=== PATIENT | female | born 2000 | race Caucasian/White ===

== ENCOUNTER 2023-04-04 20:27 | Outpatient (REF) | payer BC, SELFPAY ==
[2023-04-10 13:08] LABS: Age Gdln ACOG Testing Note (.); IGP, rfx Aptima HPV ASCU Note (.)
== END 2023-04-04 20:28 | disposition home or self-care (01) ==
LOC: LAB 20:27
PROVIDERS: PCP Family Medicine; Visit Provider Physician Assistant
DX: Z01.419 Encounter for gynecological examination (general) (routine) without abnormal findings (principal)
CPT/HCPCS: G0145

== ENCOUNTER 2023-10-02 03:59 | Emergency (ER) | payer BC, SELFPAY ==
[2023-10-02 04:03] VITALS: BP 114/75; PULSE 82; RESP 16; TEMP 36.9; O2SAT 99; BMI 23.5
--- NOTE | 2023-10-02 04:24 | ED.NAVMDI1 ---
HPI - Nausea/Vomiting/Diarrhea General Chief complaint: Nausea/Vomiting/Diarrhea Stated complaint: VOMITING Time Seen by Provider: 10/02/23 04:12 Source: patient Mode of arrival: walk-in Limitations: no limitations History of Present Illness HPI Narrative: 23-year-old female presents for nausea vomiting and diarrhea of 12 hours duration. No fever or hematemesis. She has not been around any ill people that she is aware of. No complaints of abdominal pain or blood in her stool. Related Data Home Medications ?Medication ?Instructions ?Recorded ?Confirmed albuterol sulfate 90 mcg/actuation inhalation 10/02/23 aerosol inhaler (Ventolin HFA) Previous Rx's ?Medication ?Instructions ?Recorded ondansetron 4 mg disintegrating 4 mg PO Q6H PRN nausea and 10/02/23 tablet vomiting #20 tabs Allergies Allergy/AdvReac Type Severity Reaction Status Date / Time No Known Drug Allergies Allergy Verified 10/02/23 04:10 Review of Systems ROS Narrative A ten point review of systems is negative except as noted above. Exam Narrative Exam Narrative: Nurses note and vital signs reviewed and patient is not hypoxic. General: The patient appears well and in no apparent distress. Patient is resting comfortably on cart. Skin: Warm, dry, no pallor noted. There is no rash noted. Head: Normocephalic, atraumatic Eye: Normal conjunctiva, no drainage Ears, Nose, Mouth, and Throat: oral mucosa is moist. Nares patent. Cardiovascular: Regular Rate and Rhythm Respiratory: Patient is in no distress, no accessory muscle use, lungs are clear to auscultation, no wheezing, rales or rhonchi Back: non-tender GI: No distention rebound guarding or tenderness Musculoskeletal: The patient has no evidence of calf tenderness, no pitting edema, symmetrical pulses noted bilaterally Neurological: A&O, normal speech Psychiatric: Cooperative Constitutional Vital Signs, click to edit/add: Last Vital Signs Temp 98.4 F 10/02/23 04:03 Pulse 82 10/02/23 04:03 Resp 16 10/02/23 04:03 BP 114/75 10/02/23 04:03 Pulse Ox 99 10/02/23 04:03 O2 Del Method Room Air 10/02/23 04:03 Course Vital Signs Vital signs: Vital Signs Temperature 98.4 F 10/02/23 04:03 Pulse Rate 82 10/02/23 04:03 Respiratory Rate 16 10/02/23 04:03 Blood Pressure 114/75 10/02/23 04:03 Pulse Oximetry 99 10/02/23 04:03 Oxygen Delivery Method Room Air 10/02/23 04:03 Temperature 98.4 F 10/02/23 04:03 Pulse Rate 82 10/02/23 04:03 Respiratory Rate 16 10/02/23 04:03 Blood Pressure 114/75 10/02/23 04:03 Pulse Oximetry 99 10/02/23 04:03 Oxygen Delivery Method Room Air 10/02/23 04:03 MDM - Nausea/Vomiting/Diarrhea MDM Narrative Medical decision making narrative: Blood work is nonspecific. She was given IV fluids and Zofran and is able to be discharged home with a prescription for Zofran. Treatment diagnosis and follow-up were discussed with the patient. Differential Diagnosis Differential diagnosis: Likely food poisoning, gastroenteritis and dehydration Lab Data Attestation: I reviewed the patient's lab results. Labs: Lab Results 10/02/23 Range/Units 04:20 WBC 9.2 (4.0-11.0) 10^3/uL RBC 5.27 (4.20-5.40) 10^6/uL Hgb 13.2 (12.0-16.0) g/dL Hct 41.5 (36.0-48.0) % MCV 78.7 L (81.0-99.0) fL MCH 25.0 L (26.7-34.0) pg MCHC 31.8 (29.9-35.2) g/dL RDW 13.7 (11.0-15.0) % Plt Count 297 (150-450) 10^3/uL MPV 10.8 (9.5-13.5) fL Neut % (Auto) 71.7 (43.0-75.0) % Lymph % (Auto) 20.7 (20.5-60.0) % Hendry % (Auto) 5.8 (1.7-12.0) % Eos % (Auto) 1.2 (0.9-7.0) % Baso % (Auto) 0.4 (0.2-2.0) % Neut # (Auto) 6.6 H (1.4-6.5) 10^3/uL Lymph # (Auto) 1.9 (1.2-3.8) 10^3/uL Hendry # (Auto) 0.5 (0.3-0.8) 10^3/uL Eos # (Auto) 0.1 (0.0-0.7) 10^3/uL Baso # (Auto) 0.0 (0.0-0.1) 10^3/uL Abs Immat Gran (auto) 0.02 (0.00-0.03) 10^3/uL Imm/Tot Granulo (auto) 0.2 (0.0-0.5) % Sodium 137 (136-145) mmol/L Potassium 3.8 (3.5-5.1) mmol/L Chloride 103 (98-107) mmol/L Carbon Dioxide 24.8 (21.0-32.0) mmol/L Anion Gap 13.0 BUN 12.0 (7.0-18.0) mg/dL Creatinine 0.95 (0.55-1.02) mg/dL Est GFR ( Amer) >60 (>=60) Est GFR (Non-Af Amer) >60 (>=60) BUN/Creatinine Ratio 12.6 Glucose 89 (74-106) mg/dL Calcium 9.4 (8.5-10.1) mg/dL Serum HCG, Qual Negative (NEGATIVE) Discharge Plan Discharge Stand Alone Forms: Portal Instructions Chief Complaint: Nausea/Vomiting/Diarrhea Clinical Impression: Nausea and vomiting Patient Disposition: Home, Self-Care Time of Disposition Decision: 05:34 Condition: Good Mode of Transportation: Private Vehicle Prescriptions / Home Meds: New ondansetron 4 mg tablet,disintegrating 4 mg PO Q6H PRN (Reason: nausea and vomiting) Qty: 20 0RF No Action albuterol sulfate [Ventolin HFA] 90 mcg/actuation HFA aerosol inhaler INHALATION Print Language: Zimbabwean Instructions: Acute Nausea and Vomiting (ED) Referrals: Joaquín Bruce MD [Primary Care Provider] - 1 week
--- NOTE | 2023-10-02 04:29 | PC.NURSE ---
Pt c/o vomiting non stop for the past 12 hours, along with some diarrhea and abdominal pain. She has hx of celiac disease and GERD. 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 Denies possibility of
[2023-10-02 04:31] LABS: Basophils Percent Auto 0.4 % (0.2-2.0); Eosinophils Absolute Auto 0.1 10^3/uL (0.0-0.7); Eosinophils Percent Auto 1.2 % (0.9-7.0); Hematocrit 41.5 % (36.0-48.0); Hemoglobin 13.2 g/dL (12.0-16.0); Immature Granulocytes Abs Auto 0.02 10^3/uL (0.00-0.03); Immature Granulocytes Pct Auto 0.2 % (0.0-0.5); Lymphocytes Absolute Auto 1.9 10^3/uL (1.2-3.8); Lymphocytes Percent Auto 20.7 % (20.5-60.0); Mean Corpuscular HGB Conc 31.8 g/dL (29.9-35.2); Mean Corpuscular Volume 78.7 fL (81.0-99.0); Mean Platelet Volume 10.8 fL (9.5-13.5); Monocytes Absolute Auto 0.5 10^3/uL (0.3-0.8); Monocytes Percent Auto 5.8 % (1.7-12.0); Neutrophils Absolute Auto 6.6 10^3/uL (1.4-6.5); Neutrophils Percent Auto 71.7 % (43.0-75.0); Platelet Count 297 10^3/uL (150-450); Red Blood Count 5.27 10^6/uL (4.20-5.40); Red Cell Distribution Width 13.7 % (11.0-15.0); White Blood Count 9.2 10^3/uL (4.0-11.0)
[2023-10-02] MEDS: ONDANSETRON PF 4 MG/2 ML VIAL IV (04:34)
[2023-10-02] MEDS: 0.9 % SODIUM CHLORIDE 1,000 ML 1000 ML IV (04:34)
[2023-10-02 04:39] LABS: HCG Qualitative NEGATIVE (NEGATIVE)
[2023-10-02 04:40] LABS: BUN Creatinine Ratio 12.6; Calcium 9.4 mg/dL (8.5-10.1); Carbon Dioxide 24.8 mmol/L (21.0-32.0); Chloride 103 mmol/L (98-107); Estimated GFR (African America >60 (>=60); Estimated GFR (Non-African Ame >60 (>=60); Glucose 89 mg/dL (74-106); Potassium 3.8 mmol/L (3.5-5.1); Sodium 137 mmol/L (136-145)
== END 2023-10-02 05:50 | disposition home or self-care (01) ==
PROVIDERS: Emergency Provider Emergency Medicine; PCP Family Medicine
DX: R11.2 Nausea with vomiting, unspecified (principal); Z79.899 Other long term (current) drug therapy
CPT/HCPCS: 36415; 80048; 84703; 85025; 96361; 96374; 99284

== ENCOUNTER 2023-10-22 14:44 | Outpatient (OUT) | payer BC, SELFPAY ==
--- NOTE | 2023-10-22 14:49 | XR_ITS ---
The [address] [address] Patient Name: AMOS RIOS MRN: [id number] date: 2000 Sex: F Assigned Patient Location: [facility] Current Patient Location: Accession/Order Number: [id number] Exam Date: 10/22/2023 14:54 Report Date: 10/23/2023 08:48 At the request of: DAVIS BRANCH Procedure: XR foot RT min 3V PROCEDURE: XR foot RT min 3V COMPARISON: None. HISTORY: Right Foot Pain M79.671 FINDINGS: BONES:No fracture, acute abnormality, or significant arthropathy. SOFT TISSUES:Negative. No visible soft tissue swelling. EFFUSION:None visible. OTHER: Negative. XR/XR foot RT min 3V IMPRESSION: No acute radiographic abnormality Electronically authenticated by: CALLY CHO Date: 10/23/2023 08:48
== END 2023-10-22 14:45 | disposition home or self-care (01) ==
LOC: RAD 14:45
PROVIDERS: PCP Family Medicine; Visit Provider Family Medicine
DX: M79.671 Pain in right foot (principal)
CPT/HCPCS: 73630

== ENCOUNTER 2024-07-22 20:30 | Outpatient (REF) | payer BC, SELFPAY | END 2024-07-22 20:31 | disposition home or self-care (01) | LOC: LAB 20:30 | PROVIDERS: PCP Family Medicine; Visit Provider Physician Assistant | DX: Z01.419 Encounter for gynecological examination (general) (routine) without abnormal findings (principal) | CPT/HCPCS: 88175 ==

== ENCOUNTER 2025-04-13 16:54 | Outpatient (OUT) | payer BC, SELFPAY ==
--- OUTSIDE RECORDS SUMMARY | 2025-04-13 11:32 | XMS_ITS | Continuity of Care Document ---
Author Organization [facility] Address [address] [place] [address] Phone Care Team Providers Care Property Loss Insurance Claim Adjuster Name Role Phone Joaquín Bruce MD Primary Care Provider Joaquín Bruce MD Attending Provider [phone] Care Teams Patient Care Team Team Status: Active Member Role Status Dates Joaquín Bruce MD Primary Care Provider Active Patient Care Team Team Status: Inactive Member Role Status Dates Joaquín Bruce MD Primary Care Provider Active S tart: April 13, 2025 End: April 13, 2025 Joaquín Bruce MD Attending Provider Active Star t: April 13, 2025 End: April 13, 2025 Chief Complaint and Reason for Visit Chief Complaint Admit Date Check Up/Request Referral April 13, 025 2:44pm Reason for Visit Admit Date Annual physical exam April 13, 2025 2 :44pm Autonomic dysfunction April 13, 2025 2:44pm Celiac disease April 13, 2025 2: 44pm Allergies, Adverse Reactions, Alerts Allergen Type Severity Reaction Last Updated Verified Status Comments gluten Allergy Unknown Unknown Reaction April 09, 2025 11:52am Yes Active prednisone Allergy Unknown heart problem April 11:52am Yes Active Medi-pads Allergy Unknown Unknown Reaction April 09, 2025 11:52am No Active witch kalpesh, women's period pads Social History Smoking Status Status Start Date End Date Date of Observa tion Ex-smoker (finding) April 13, 2025 2:56pm Observation Status Observation Response Date of Response Legal Sex Female (finding) Sex Assigned At Female August 012000 Problems Active Problems Medical Problem Onset Date Status Generalized anxiety disorder Unknown Act lavinia Disorder of both eustachian tubes Unknown Active Autonomic dysfunction Unknown Active Mild intermittent asthma, uncomplicated Unknown Active Allergic rhinitis due to pollen Unknown Active Arthralgia of multiple joints Unknown Ac tive Annual physical exam Unknown Active Major depressive disorder, recurrent episode, mi ld Unknown Active Gastroesophageal reflux disease without esophagi tis Unknown Active Right foot pain Unknown Active Celiac disease Unknown Active Inactive/Resolved Problems Medical Problem Onset Date Status Viral gastroenteritis Unknown Resolved Abdominal cramping Unknown Resolved Generalized abdominal pain Unknown Resol dennis Epigastric pain Unknown Resolved Viral URI Unknown Resolved Hematochezia Unknown Resolved GERD (gastroesophageal reflux disease) Unknown Resolved Nausea Unknown Resolved Constipation Unknown Resolved Irritable bowel syndrome Unknown Resolve d Celiac disease Unknown Resolved Celiac sprue Unknown Resolved Medications Medication Status Dose Units Route Directions Qty Days St art Date Stop Date End Date Instructions Adherence Cefdinir 300 mg capsule Active 300 MG PO Twice daily [facility] 2024 12:00a m Complies with drug therapy Pantoprazol e 40 mg tablet,arpita yed release (DR/EC) Active 40 MG PO Daily [facility] 2024 12:00a m Complies with drug therapy Hydroxyzine Hcl 25 mg tablet Active 25 MG PO Four times daily as needed [facility] 2024 12:00a m Complies with drug therapy Albuterol Sulfate 90 mcg/actuati on HFA aerosol inhaler Active 2 PUFF INHALA TION Every 4 hours as needed [facility] 2024 12:00a m Complies with drug therapy Vital Signs Vital Reading Result Reference Range Collection Date/Time Height 67 [in_i] April 13 2:53pm Weight 80.73 kg April 13 2:53pm Body Temperature 97.8 [degF] 97.6-99.0 April 2:53pm Heart Rate 97 /min 60-100 April 13 2:53pm Respiratory rate 20 /min 12-April 2:53pm Oxygen saturation by Pulse oximetry 99 % 95-100 April 13, 2025 2: 53pm BP Systolic 104 mm[Hg] 100-140 April 13 2:53pm BP Diastolic 62 mm[Hg] 60-100 April 13 2:53pm BMI (Body Mass Index) 27.8 kg/m2 [facility] 2024 2:53pm Advance Directives Advance Directive Response Recorded Date/ Time Advance Directives No December 05 8 4:11pm Insurance Providers Guarantor Wilbert Hooper Address [address] [place] [id number] Contact Info. Home Phone: Payer Policy Id Subscriber's Name Subscriber Id Effectiv e Date Expiration Date MMO [id number] Wallace Som , P [id number] MMO [employer] Access [id number] Wallace Kearns , P [id number] [place] [id number] Kirti Som [id number] Medicaid [id number] Mary Kearns , M [id number] [place] Medicaid [id number] Mary Kearns M [id number] Encounters Encounter Location(s) Arrival/Admit Date Discharge/Depart Date Provider(s) Departed Physician/Prov ider Office Visit -[facility] Family Medicine [place] April 13, 2025 2:44pm April 13, 2025 3:32pm Joaquín Bruce MD Recent Diagnosis Onset Date Admit Date Annual physical exam Unknown April 2:44pm Autonomic dysfunction Unknown April 2:44pm Celiac disease Unknown April 13 2:44pm Assessments Diagnosis Onset Date Resolution Status Admit Date Annual physical exam acute Apro 2024 2:44pm Autonomic dysfunction acute Apr oli2024 2:44pm Celiac disease acute April 2:44pm Plan of Treatment Future Tests Future scheduled test information is unavailable Pending Tests Test Name Ordered Date Scheduled Date Comprehensive Metabolic Panel April 13, 2025 3:22pm Future Visits Future appointment information is unavailable Referrals to Other Providers Referral information is unavailable Future Procedures Procedure Name Ordered Date Scheduled Date A1C with Estimated Average Glu April 13, 2025 3:22pm Complete Blood Count Auto Diff April 13, 2025 3:22pm Iron and TIBC Profile April 13, 2025 3:22pm Ferritin April 13, 2025 3:22pm Lipid Panel April 13, 2025 3:22pm Thyroid Stimulating Hormone April 13, 2025 3: 22pm Future Medications Future medication information is unavailable Patient Instructions Patient instructions are unavailable
--- OUTSIDE RECORDS SUMMARY | 2025-04-13 17:01 | XMS_ITS | Encounter Summary ---
Author Organization [facility] Address [address] [place] [address] Care Team Providers Care Financial Compliance Manager Name Role Phone Joaquín Branch MD Primary Care Provider [phone] Encounter Details Date Type Department Care Team (Late st Contact Info) Description 10/23/2023 Clinisync Result Encounter [facility] External Department Unsolicited Joaquín Branch MD [address] [place] [address] Social History Tobacco Use Types Packs/Day Years Used Date Smoking Tobacco: Never Smokeless Tobacco: Never Comments Unknown Sex and Gender Information Value Date Recorded Sex Assigned at Not on file Legal Sex Female 7:21 PM EDT Gender Identity Not on file Sexual Orientation Not on file documented as of this encounter Plan of Treatment Upcoming Encounters Date Type Department Care Team (Late st Contact Info) Description 07/27/2025 11:00 AM EST Office Visit [facility] [address] [place] [id number] Marquis Bernal DO [address] [place], [place] [id number] documented as of this encounter Procedures Procedure Name Priority Date/Time Associated Diagnosis Comments XR FOOT RT MIN 3V 10/23/2023 8:4 8 AM EDT documented in this encounter Results * XR FOOT RT MIN 3V (10/23/2023 8:48 AM EDT) Anatomical Region Laterality Modality Other 10/23/2023 8:48 AM EDT Narrative 10/23/2023 8:51 AM EDT The [address] [address] XRay Report Signed Patient: MARY KEARNS MR#: [id number] : 2000 Acct:[id number] Age/Sex: 23 / F ADM Date: 10/22/23 Loc: RAD Attending Dr: Joaquín Branch M.D. Ordering Physician: Joaquín Branch M.D. Date of Service: 10/22/23 Procedure(s): XR foot RT min 3V Accession Number(s): [id number] cc: Joaquín Branch M.D. [place] [address] Patient Name: MARY KEARNS MRN: [id number] date: 2000 Sex: F Assigned Patient Location: [facility] Current Patient Location: Accession/Order Number: [id number] Exam Date: 10/22/2023 14:54 Report Date: 10/23/2023 08:48 At the request of: JOAQUÍN BRANCH Procedure: XR foot RT min 3V PROCEDURE: XR foot RT min 3V COMPARISON: None. HISTORY: Right Foot Pain M79.671 FINDINGS: BONES:No fracture, acute abnormality, or significant arthropathy. SOFT TISSUES:Negative. No visible soft tissue swelling. EFFUSION:None visible. OTHER: Negative. XR/XR foot RT min 3V IMPRESSION: No acute radiographic abnormality Electronically authenticated by: CALLY CHO Date: 10/23/2023 08:48 Dictated By: Cally Cho M.D. Signed By: 10/23/23 0851 DD/ TD/TT: Community Health Worker: Procedure Note Radiology, Radiologist, - 10/25/[address] [address] XRay Report Signed Patient: MARY KEARNS MMR#: [id number] : 2000Acct:[id number] Age/Sex: 23 / FADM Date: 10/22/23 Loc: RAD Attending Dr: Joaquín Branch M.D. Ordering Physician: Joaquín Branch M.D. Date of Service: 10/22/23 Procedure(s): XR foot RT min 3V Accession Number(s): [id number] cc: Joaquín Branch M.D. [place] [address] Patient Name: MARY KEARNS MRN: [id number] date: 2000 Sex: F Assigned Patient Location: [facility] Current Patient Location: Accession/Order Number: [id number] Exam Date: 10/22/2023 14:54 Report Date: 10/23/2023 08:48 At the request of: JOAQUÍN BRANCH Procedure: XR foot RT min 3V PROCEDURE: XR foot RT min 3V COMPARISON: None. HISTORY: Right Foot Pain M79.671 FINDINGS: BONES:No fracture, acute abnormality, or significant arthropathy. SOFT TISSUES:Negative. No visible soft tissue swelling. EFFUSION:None visible. OTHER: Negative. XR/XR foot RT min 3V IMPRESSION: No acute radiographic abnormality Electronically authenticated by: CALLY CHO Date: 10/23/2023 08:48 Dictated By: Cally Cho M.D. Signed By:10/23/23 0851 DD/ TD/TT: Community Health Worker: Joaquín Branch MD [facility] Final Result documented in this encounter Visit Diagnoses Not on filedocumented in this encounter Care Teams Financial Compliance Manager Relationship Specialty Start Date End Date Joaquín Branch MD PCP - General Family Medicine 10/22/23 documented as of this encounter
--- OUTSIDE RECORDS SUMMARY | 2025-04-13 17:01 | XMS_ITS | Encounter Summary ---
Author Organization [facility] Address [address] [place] [address] Care Team Providers Care Upset Operator Name Role Phone Joaquín Bruce MD Primary Care Provider [phone] Encounter Details Date Type Department Care Team (Late st Contact Info) Description 08/04/2024 Orders Only VERONICA GALVAN [facility] [employer] [place] [place] [address] Kasey Beltre LPN [address] [place] [address] Social History Tobacco Use Types Packs/Day Years [...] 07/27/2025 11:00 AM EST Office Visit [facility] [employer] [place] [place] [address] Marquis Bernal DO [address] [place], [facility] documented as of this encounter Procedures Procedure Name Priority Date/Time Associated Diagnosis Comments PAP SMEAR Routine 07/22/2024 12:00 AM EST documented in this encounter Results * Pap Smear (07/22/2024 12:00 AM EST) Swab Cervical swab / Unknown us [facility] ORDERABLES Final Re sult EXTERNAL LAB documented in this encounter Visit Diagnoses Not on filedocumented in this encounter Care Teams Upset Operator Relationship Specialty Start Date End Date Joaquín Bruce MD PCP - General Family Medicine 10/22/23 documented as of this encounter
--- OUTSIDE RECORDS SUMMARY | 2025-04-13 17:01 | XMS_ITS | Clinical Summary ---
Author Organization [facility] Address [address] [place] [address] Care Team Providers Care Hull And De[employer] Remover Name Role Phone Joaquín Bruce MD Primary Care Provider [phone] Allergies Active Allergy Reactions Criticality Noted Date Comments Gluten Meal 02/20/2023 Witch Darlene 02/20/2023 Womans period pads Prednisone 02/20/2023 Heart problem Medications pantoprazole (Protonix) 40 MG EC tabletIndications :Gastroesophageal reflux disease without esophagitis Take 1 tablet (40 mg) by mouth in the morning. Take before meals. Do not crush, chew, or split.. 30 tablet 5 4 Active hydrOXYzine HCl (Atarax) 25 MG tabletIndications :Generalized anxiety disorder Take 1 tablet (25 mg) by mouth 4 (four) times a day as needed for anxiety 30 tablet 2 4 Active albuterol HFA 90 mcg/act inhalerIndication s:Mild intermittent asthma, unspecified whether complicated (HCC) Inhale 2 puffs every 4 (four) hours if needed for shortness of breath 18 g 2 5 Active predniSONE (Deltasone) 10 MG tabletIndications :Allergic contact dermatitis due to cosmetics 6 PO daily x 3 days, 4 PO daily x 3 days, 2 PO daily x 3 days, 1 PO daily x 3 days 39 tablet 5 Active Active Problems Problem Noted Date Diagnosed Date Allergic contact dermatitis due to cosmetics Assessment & Plan (08/25/2024 3:25 PM EST): Likely reacting to new shampoo. Treat with prednisone and use hydroxyzine PRN. Use lotion PRN. Arthralgia of multiple joints 10/22/2023 Celiac disease 10/22/2023 Disorder of both eustachian tubes 10/22/2023 Assessment & Plan (10/22/2023 12:24 PM EDT): Fluid behind TM and frequent symptoms. Resume flonase. Prior tubes and refer to ENT. Generalized anxiety disorder 10/22/2023 Gastroesophageal reflux disease without esophagi tis 10/22/2023 Assessment & Plan (10/22/2023 12:25 PM EDT): Worsening symptoms and resume protonix. Hematochezia 10/22/2023 Major depressive disorder, recurrent episode, mi ld 10/22/2023 Mild intermittent asthma, uncomplicated 10/22/19 Allergic rhinitis due to pollen 10/22/2023 Viral gastroenteritis 10/22/2023 Assessment & Plan (10/22/2023 12:26 PM EDT): Recent symptoms and likely viral. Increase fluids. Wash hands prior to eating and monitor. Right ear impacted cerumen 10/22/2023 Assessment & Plan (10/22/2023 12:25 PM EDT): Ear plugged and impaction on exam. Ear irrigated with water and cerumen removed with speculum. Canal clear after procedure. Use debrox or drops of baby oil to prevent build up of wax in future. Do not use q-tips inside ear. Right foot pain 10/22/2023 Assessment & Plan (10/22/2023 12:26 PM EDT): Pain without injury and possibly related to activity. Treat with prednisone. Ice and elevate. Check x-ray due to bump on outer mid foot. Resolved Problems Problem Noted Date Diagnosed Date Resolved Date Acute UTI 07/30/2024 08/25/2024 Assessment & Plan (07/30/2024 10:43 AM EST): UA suggestive UTI and treat. Currently on levaquin and start macrobid for infection. Use pyridium for symptoms. Send urine for culture. Increase water intake and cranberry juice. Use motrin or tylenol for discomfort. Acute bronchitis due to othe r specified organisms 07/27/2024 07/30/2024 Assessment & Plan (07/27/2024 2:23 PM EST): Take antibiotics for 7 days. Use sudafed or other decongestants as needed. Use robitussin or robittussin-DM for cough. Use afrin for congestion but no longer than 3 days. Use mucinex to bring up phlegm. Use motrin or tylenol for fever, aches or pains. Increase fluid intake and rest. Should improve over next 5-7 days and if no better or worse call office. Dermatitis 10/22/2023 10/22/2023 Encounters Date Type Department Care Team Description 01/12/2025 Telephone [facility] [address] [place] [address] Joaquín Bruce MD from Last 3 Months Social History Tobacco Use Types Packs/Day Years Used Date Smoking Tobacco: Never Smokeless Tobacco: Never Tobacco Cessation:Counseling Given: Not Answered Comments Unknown Sex and Gender Information Value Date Recorded Sex Assigned at Not on file Legal Sex Female 7:21 PM EDT Gender Identity Not on file Sexual Orientation Not on file Last Filed Vital Signs Vital Sign Reading Time Taken Comments Blood Pressure 108/56 08/25/2024 3:08 PM EST Pulse 91 08/25/2024 3:08 PM EST Temperature 36.6 C (97.8 F) 08/25/2024 3:08 PM EST Respiratory Rate 22 08/25/2024 3:08 PM EST Oxygen Saturation 99% 08/25/2024 3:08 PM EST Inhaled Oxygen Concentration - - Weight 82.1 kg (181 lb) 08/25/2024 3:08 PM EST Height 170.2 cm (5' 7 ) 08/25/2024 3:08 PM EST Body Mass Index 28.35 08/25/2024 3:08 PM EST Plan of Treatment Upcoming Encounters Date Type Department Care Team (Late st Contact Info) Description 07/27/2025 11:00 AM EST Office Visit [facility] [address] [place] [address] Marquis Bernal DO [address] [place] [address] Insurance Care Teams Hull And De[employer] Remover Relationship Specialty Start Date End Date Joaquín Bruce MD PCP - General Family Medicine 10/22/23
--- OUTSIDE RECORDS SUMMARY | 2025-04-13 17:01 | XMS_ITS | Clinical Summary ---
Author Organization [employer] [facility] Address [id number] [address] [place] [address] Care Team Providers Care [employer] Name Role Phone Joaquín Bruce MD Primary Care Provider [phone] Allergies No known active allergies Medications acetaminophen (TYLENOL EXTRA STRENGTH) 500 mg tablet Take 1 tablet (500 mg total) by mouth every 6 (six) hours as needed for pain. 30 tablet 3 Active Additional Information Patient not taking.Reported on 10/03/2023 ibuprofen (MOTRIN) 400 mg tablet Take 1 tablet (400 mg total) by mouth every 6 (six) hours as needed for pain. 30 tablet 3 Active Additional Information Patient not taking.Reported on 10/03/2023 loperamide (IMODIUM) 2 mg capsule Take 1 capsule (2 mg total) by mouth 4 (four) times a day as needed for diarrhea. 12 capsule 4 Active Additional Information Patient not taking.Reported on 07/14/2024 promethazine (PHENERGAN) 25 mg tablet Take 1 tablet (25 mg total) by mouth every 6 (six) hours as needed for nausea or vomiting. 15 tablet 4 Active Additional Information Patient not taking.Reported on 07/14/2024 Social History Tobacco Use Types Packs/Day Years Used Date Smoking Tobacco: Former Cigarettes Smokeless Tobacco: Never Tobacco Cessation:Counseling Given: Not Answered Alcohol Use Standard Drinks/Week Comments Not Currently 0 (1 standard drink = 0.6 oz pur e alcohol) Childcare Answer Date Recorded Childcare Unknown 04/06/2020 Employment Answer Date Recorded Employment Unknown 04/06/2020 Hunger Screening Answer Date Recorded Within the past 12 months we worried whether our food would run out before we got money to buy more. Never True 07/14/2024 Within the past 12 months th e food we bought just didn't last and we didn't have money to get more. Never True 07/14/2024 Purpose - Life Answer Date Recorded Purpose and direction in life Unknown Comments No Sex and Gender Information Value Date Recorded Sex Assigned at Not on file Legal Sex Female 12:01 PM EDT Gender Identity Not on file Sexual Orientation Not on file Last Filed Vital Signs Vital Sign Reading Time Taken Comments Blood Pressure 128/67 07/14/2024 6:45 PM EST Pulse 78 07/14/2024 6:44 PM EST Temperature 37 C (98.6 F) 07/14/2024 6:44 PM EST Respiratory Rate 18 07/14/2024 6:44 PM EST Oxygen Saturation 100% 07/14/2024 6:45 PM EST Inhaled Oxygen Concentration - - Weight 79.4 kg (175 lb) 07/14/2024 6:44 PM EST Height 170.2 cm (5' 7 ) 07/14/2024 6:44 PM EST Body Mass Index 27.41 07/14/2024 6:44 PM EST Plan of Treatment Health Maintenance Due Date Last Done Comments Depression Screening 2012 Adult BMI Follow Up Plan 2018 Influenza Vaccine 03/08/2025 DTaP,Tdap and Td Vaccines (6 - Td or Tdap) 03/21/2025 03/21/2015, 09/22/2001, 03/21/2001, Additional history exists Adult BMI Screening 07/14/2025 07/14/2024 Tobacco Screening 07/14/2025 07/14/2024 Pap Smear 04/04/2026 04/04/2023 Medical Devices Not on file Insurance [facility] Care Teams [employer] Relationship Specialty Start Date End Date Joaquín Bruce MD PCP - General Family Medicine 08/08/22
--- OUTSIDE RECORDS SUMMARY | 2025-04-13 17:04 | XMS_ITS | CCD ---
Author Organization [facility] Care Team Providers [facility] Name Role Phone Triny Guerra Unavailable DR JOAQUÍN BRANCH Admitting Unavailable JOSE CARLOS, DR JOAQUÍN Gilbert Attending Unavailable JOSE CARLOS, DR JOAQUÍN Gilbert Primary Care Unavailable JOSE CARLOS, DR JOAQUÍN Gilbert Consulting Unavailable MD Joaquín Branch Primary Care Provider ERVIN Guerra Attending Provider Triny Guerra Attending Unavailable Triny Guerra Admitting Unavailable Joaquín Branch Primary Care Unavailable Shira Lorraine Unavailable JOAQUÍN BRANCH Primary Care Unavailable CALLY REIS Attending Unavailable JOSE CARLOS, JOAQUÍN Primary Care Unavailable SANDY SOUZA Attending Unavailable Joaquín Branch MD Primary Care Provider JOAQUÍN BRANCH Attending Unavailable JOSE CARLOS, JOAQUÍN Attending Unavailable JOSE CARLOS, JOAQUÍN Attending Unavailable CHANDA BERNAL Attending Unavailable JOSE CARLOS, JOAQUÍN Attending Unavailable Allergies Allergy Classification Reported Allergen(s) Allergy Type Date of Onset Reaction(s) Facility (11 sources) Gluten Propensity to adverse reactions 3 [facility] Work Phone: (11 sources) Prednisone Propensity to adverse reactions 3 [facility] (11 sources) Witch Darlene Drug Allergy 3 [facility] Medications Current Medications Medication Drug Class(es) Dates Sig (Normalized) Sig (Original) [id number] 200 actuat albuterol 0.09 mg/actuat metered dose inhaler (15 sources) beta2-Adrenergic Agonist Start: 06-06-2023 End: 07-27-2024 take 2 puff(s) by inhalation every four hours albuterol HFA 90 mcg/act inhaler Indications: Mild intermittent asthma, unspecified whether complicated (CMS/HCC) Inhale 2 puffs every 4 (four) hours if needed for shortness of breath 18 g 2 07/27/2024 Active Start: 06-06-2023 take 1 puff(s) by in halation every four hours as needed Albuterol Sulfate HFA 108 (90 Base) MCG/ACT 1 puff as needed Inhalation every 4 hrs for 14 days May, Active Start: 06-06-2023 take 1 puff(s) by in halation every four hours as needed Albuterol Sulfate HFA 108 (90 Base) MCG/ACT 1 puff as needed Inhalation every 4 hrs for 14 days May, Not-Taking/PRN Start: 04-17-2022 take 2 puff(s) by in halation four times daily as needed Albuterol Sulfate HFA 108 (90 Base) MCG/ACT 2 puffs Inhalation 4 times a day prn Apr, Active amoxicillin 500 mg oral tablet (1 source) Penicillin-class Antibacterial Start: 07-03-2023 take 1 tablet by mouth every twelve hours Amoxicillin 500 MG 1 tablet Orally Twice a day for Jun, Active fluticasone propionate 0.05 mg/actuat metered dose nasal spray (1 source) Corticosteroid Start: 07-03-2023 take 1 spray(s) nasal route once daily Fluticasone Propionate 50 MCG/ACT 1 spray in each nostril Nasally Once a day for Jun, Active hydrOXYzine hydrochloride 25 mg oral tablet (11 sources) Antihistamine Start: 12-31-2023 take 1 tablet by mouth four times daily as needed for anxiety hydrOXYzine HCl (Atarax) 25 MG tablet Indications: Generalized anxiety disorder (CMS/HCC) Take 1 tablet (25 mg) by mouth 4 (four) times a day as needed for anxiety 30 tablet 2 12/31/2023 Active levoFLOXacin 750 mg oral tablet (5 sources) Quinolone Antimicrobial Start: 07-27-2024 End: 08-03-2024 take 1 tablet by mouth once daily levoFLOXacin (Levaquin) 750 MG tablet Indications: Acute bronchitis due to other specified organisms Take 1 tablet (750 mg) by mouth Daily for 7 days 7 tablet 07/27/2024 08/03/2024 Active nitrofurantoin, macrocrystals 25 mg / nitrofurantoin, monohydrate 75 mg oral capsule (2 sources) Nitrofuran Antibacterial Start: 07-30-2024 End: 08-06-2024 take 1 capsule by mouth in the morning nitrofurantoin, macrocrystal-monohyd rate, (Macrobid) 100 MG capsule Indications: Acute UTI Take 1 capsule (100 mg) by mouth in the morning and 1 capsule (100 mg) before bedtime. Do all this for 7 days. 14 capsule 07/30/2024 08/06/2024 Active pantoprazole 40 mg delayed release oral tablet (11 sources) Proton Pump Inhibitor Start: 10-22-2023 take 1 tablet by mouth before mealtime pantoprazole (Protonix) 40 MG EC tablet Indications: Gastroesophageal reflux disease without esophagitis Take 1 tablet (40 mg) by mouth in the morning. Take before meals. Do not crush, chew, or split.. 30 tablet 5 10/22/2023 Active phenazopyridine hydrochloride 200 mg delayed release oral tablet (2 sources) Start: 07-30-2024 End: 2024 phenazopyridine (Pyridium) 200 MG tablet Indications: Acute UTI Take 1 tablet (200 mg) by mouth in the morning and 1 tablet (200 mg) at noon and 1 tablet (200 mg) in the evening. Take with meals. Do all this for 2 days. 6 tablet 07/30/2024 2024 Active predniSONE 10 mg oral tablet (3 sources) Start: 08-25-2024 take 6 tablets by mouth once daily, then take 4 tablets by mouth once daily, then take 2 tablets by mouth once daily, then take 1 tablet by mouth once daily predniSONE (Deltasone) 10 MG tablet Indications: Allergic contact dermatitis due to cosmetics 6 PO daily x 3 days, 4 PO daily x 3 days, 2 PO daily x 3 days, 1 PO daily x 3 days 39 tablet 08/25/2024 Active Start: 04-17-2022 take 1 tablet by demi th every twelve hours predniSONE 20 MG 1 tablet Orally 2 times a day for 5 day(s) Apr, Active Completed/Discontinued Medications Medication Drug Class(es) Dates Sig (Normalized) Sig (Original) azithromycin 250 mg oral tablet (2 sources) Macrolide Antimicrobial Start: 06-06-2023 Azithromycin 250 MG Take 2 tablets on first day then 1 tablet daily for 4 days Orally as directed for 5 May, Not-Taking/PRN benzonatate 200 mg oral capsule (8 sources) Non-narcotic Antitussive Start: 07-27-2024 End: 08-25-2024 take 1 capsule by mouth three times daily as needed for cough benzonatate (Tessalon) 200 MG capsule Indications: Acute bronchitis due to other specified organisms Take 1 capsule (200 mg) by mouth 3 (three) times a day as needed for cough Do not crush or chew. 30 capsule 1 07/27/2024 08/25/2024 Discontinued fluconazole 150 mg oral tablet (4 sources) Azole Antifungal Start: 07-25-2022 Diflucan 150 MG 1 tablet Orally once for 2 days Take 1 tablet today by mouth, take the second tablet in 3 days. Jul, Not-Taking/PRN Levonorgestrel-Eth Estradiol (Twirla) 120-30 MCG/24HR patch weekly (10 sources) Start: 07-22-2024 End: 08-25-2024 apply 1 dose transdermal route every week Levonorgestrel-Eth Estradiol (Twirla) 120-30 MCG/24HR patch weekly Indications: control counseling Place 1 patch on the skin 1 (one) time per week 28 patch 07/22/2024 08/25/2024 Discontinued Start: 07-22-2024 apply 1 dose transde rmal route every week Levonorgestrel-Eth Estradiol (Twirla) 120-30 MCG/24HR patch weekly Indications: control counseling Place 1 patch on the skin 1 (one) time per week 28 patch 11 07/22/2024 Active methylPREDNISolone 4 mg oral tablet (2 sources) Corticosteroid Start: 06-06-2023 Medrol 4 MG as directed Orally as directed for 6 days May, Not-Taking/PRN PARoxetine hydrochloride 10 mg oral tablet (11 sources) Serotonin Reuptake Inhibitor Start: 12-31-2023 End: 08-25-2024 take 1 tablet by mouth in the morning PARoxetine (Paxil) 10 MG tablet Indications: Generalized anxiety disorder (CMS/HCC) Take 1 tablet (10 mg) by mouth in the morning. 30 tablet 2 12/31/2023 08/25/2024 Discontinued Problems Active Problems Problem Classification Problem Date Documented Da te Episodic/Chronic Abdominal pain (15 sources) Generalized abdominal pain; Translations: [Generalized abdominal pain] Episodic Allergic reactions (15 sources) Inflammatory dermatosis; Translations: [Dermatitis, unspecified] Onset: 4 Resolved: 4 10-22-2023 Episodic Anxiety disorders (11 sources) Generalized anxiety disorder; Translations: [Generalized anxiety disorder] Onset: 4 10-22-2023 Chronic Asthma (13 sources) Mild intermittent asthma; Translations: [Mild intermittent asthma, uncomplicated] Onset: 4 10-22-2023 Chronic Esophageal disorders (16 sources) Gastroesophageal reflux disease; Translations: [Gastro-esophageal reflux disease without esophagitis] Onset: 4 10-22-2023 Chronic Genitourinary symptoms and ill-defined conditions (8 sources) Dysuria; Translations: [Dysuria] Onset: 3 Episodic Immunizations and screening for infectious disease (6 sources) Contact with and (suspected) exposure to other viral communicable diseases; Translations: [Contact with and (suspected) exposure to other viral communicable diseases] Episodic Mood disorders (11 sources) Recurrent major depressive episodes, mild ; Translations: [Major depressive disorder, recurrent, mild] Onset: 4 10-22-2023 Chronic Other female genital disorders (1 source) Other specified noninflammatory disorders of vagina Episodic Other gastrointestinal disorders (16 sources) Celiac disease; Translations: [Celiac disease] Onset: 4 10-22-2023 Chronic Other gastrointestinal disorders (5 sources) Irritable bowel syndrome; Translations: [Irritable bowel syndrome without diarrhea] Chronic Other gastrointestinal disorders (5 sources) Constipation; Translations: [Constipation, unspecified] Episodic Other lower respiratory disease (1 source) Cough Onset: 5 Episodic Other non-traumatic joint disorders (1 source) Pain in unspecified joint; Translations: [PAIN IN UNSPECIFIED JOINT] Onset: 2 Episodic Other upper respiratory disease (11 sources) Allergic rhinitis due to pollen; Translations: [Allergic rhinitis due to pollen] Onset: 4 10-22-2023 Chronic Other upper respiratory infections (2 sources) Sinusitis; Translations: [Chronic sinusitis, unspecified] Chronic Unclassified (1 source) VOMITING, DIARRHEA Onset: 4 Urinary tract infections (7 sources) Acute urinary tract infection; Translations: [Urinary tract infection, site not specified] Onset: Resolved: 5 07-30-2024 Episodic Past or Other Problems Problem Classification Problem Date Documented Da te Episodic/Chronic Acute bronchitis (13 sources) Acute bronchitis, unspecified; Translations: [Acute infective bronchitis] Onset: 07-14-2024 Resolved: 07-30-2024 Episodic Gastrointestinal hemorrhage (11 sources) Blood-tinged feces; Translations: [Melena] Onset: 10-22-2023 10-22-2023 Episodic Intestinal infection (11 sources) Viral gastroenteritis; Translations: [Viral intestinal infection, unspecified] Onset: 10-22-2023 10-22-2023 Episodic Nausea and vomiting (6 sources) Nausea; Translations: [Nausea] Onset: 10-03-2023 Episodic Noninfectious gastroenteritis (1 source) Noninfective gastroenteritis and colitis, unspecified; Translations: [Noninfective gastroenteritis and colitis, unspecified] Onset: 10-03-2023 Episodic Other connective tissue disease (11 sources) Pain in right foot; Translations: [Pain in right foot] Onset: 10-22-2023 10-22-2023 Episodic Other ear and sense organ disorders (11 sources) Impacted cerumen in right ear; Translations: [Impacted cerumen, right ear] Onset: 10-22-2023 10-22-2023 Episodic Other gastrointestinal disorders (1 source) Diarrhea Onset: 10-03-2023 Episodic Other non-traumatic joint disorders (11 sources) Multiple joint pain; Translations: [Pain in unspecified joint] Onset: 10-22-2023 10-22-2023 Episodic Otitis media and related conditions (12 sources) Otitis media, unspecified, bilateral; Translations: [Bilateral disorder of Eustachian tubes] Onset: 10-22-2023 Episodic Viral infection (1 source) COVID-19 Results Test Name Value Interpretation Reference Range Facility Urinalysis macro (dipstick) panel (U)on 07-30-2024 Bilirubin, UA Negative Negative - 4(70) +++ mg/dL [facility] Blood, UA Positive Negative - 50 Tacho/mcL [facility] Clarity, UA Cloudy [facility] [employer] Color, UA Larue [facility] [employer] Glucose, UA Positive Negative - 1999(110) ++++ mg/dL [facility] Interpretation and review of laboratory results Abnormal [facility] [employer] Ketones, UA Negative Negative - 160(16) ++++ mg/dL [facility] Leukocytes, UA Negative Negative - 500+++ Carie/mcL [facility] Nitrite, UA Negative Negative - Positive [facility] pH, UA 5.5 5 - 9 [facility] [employer] e Protein, UA 3+ Negative - 1999(20) ++++ mg/dL [facility] Spec Grav, UA 1.03 1 - 1.03 [facility] Urobilinogen, UA 0.2 0.2 - 12 mg/dL [facility] [employer] e IGP,APTIMA HPV,AGE GDLNon AGE GDLN ACOG TESTING Note . [facility] Comment on above: TESTS RESULT FLAG U NITS REF RANGE LAB Clinician Provided Cytology Information Source.............Cervix;Endocervix No. of containers..01 ThinPrep Vial Age Algo ACOG Clair... -05 08 FLAG LEGEND: L-Low Normal,H-High Normal,LL-Alert Low,HH-Alert High <-Panic Low,>-Panic High,A-Abnormal,AA-Critical Abnormal Performed at: 01 =G [address] [address] Mary Stone MD, IGP, RFX APTIMA HPV ASCU Note . [facility] Comment on above: TESTS RESULT FLAG UN ITS REF RANGE LAB DIAGNOSIS: 02 NEGATIVE FOR INTRAEPITHELIAL LESION OR MALIGNANCY. Specimen adequacy: 02 Satisfactory for evaluation. Endocervical and/or squamous metaplastic cells (endocervical component) are present. Performed by: 02 Deanna Clarke, Cnc Programmer ([facility]) . 02 Note: Note 03 The Pap smear is a screening test designed to aid in the detection of premalignant and malignant conditions of the uterine cervix. It is not a diagnostic procedure and should not be used as the sole means of detecting cervical cancer. Both false-positive and false-negative reports do occur. Test Methodology: Note 03 This liquid based ThinPrep(R) pap test was screened with the use of an image guided system. . 02 The HPV DNA reflex criteria were not met with this specimen result therefore, no HPV testing was performed. FLAG LEGEND: L-Low Normal,H-High Normal,LL-Alert Low,HH-Alert High <-Panic Low,>-Panic High,A-Abnormal,AA-Critical Abnormal Performed at: 02 [facility] [employer] [id number] [place] [id number] Indra Luna MD, 03 WB [facility] [address] [place] [address] Mary Stone MD, Performed at: =G - [facility] [address], [place] [id number] Stage Rigger: Mary Stone MD, Phone: [phone] Performed at: [facility] [address] [place], [place] [id number] Stage Rigger: Indra Luna MD, Phone: [phone] BRUSH-SPATULA CERVIX ENDOCERVIX [facility] SARS/FLU A+B/RSV by NAAT/Mol ecularon 07-14-2024 SARS/FLU A+B/RSV by NAAT/Molecular FLU A PCR Negative (qualifier value) FLU B PCR Negative (qualifier value) RSV by PCR Negative (qualifier value) SARS CoV 2 Not detected (qualifier value) NOTE The Xpert Xpress SARS-CoV-2/Flu/RSV Plus test is a rapid, multiplexed real-time RT-PCR test intended for the simultaneous qualitative detection and differentiation of SARS-CoV-2, influenza A, influenza B and respiratory syncytial virus (RSV) viral RNA from individuals suspected of respiratory viral infection consistent with COVID-19 by their healthcare provider. This test has not been validated in asymptomatic patients. The Xpert Xpress SARS-CoV-2 test is intended for use by qualified and trained operators who are performing tests using either [employer] DX or [employer] systems and is limited to laboratories that meet the CLIA requirements to perform high and moderate complexity tests. The Xpert Xpress SARS-CoV-2/Flu/RSV Plus is only for use under the Food and Drug Administration's Emergency Use Authorization. Results are for the simultaneous detection and differentiation of SARS-CoV-2, influenza A, influenza B and RSV nucleic acids in clinical specimens. SARS-CoV-2, influenza A, influenza B and RSV RNA identified by this test are generally detectable in upper respiratory samples during the acute phase of infection. Positive results are indicative of the presence of the identified virus, but do not rule out bacterial infection or co-infection with other pathogens not detected by this test. Clinical correlation with patient history and other diagnostic information is necessary to determine patient infection status. The agent detected may not be the definite cause of disease. Negative results do not preclude SARS-CoV-2, influenza A, influenza B and RSV infection and should not be used as the sole basis for treatment or other patient management decisions. Negative results must be combined with clinical observations, patient history and epidemiological information. An Invalid result may occur with specimen-associated inhibition unable to be resolved with specimen repeat. Fact Sheet for Healthcare Providers: https://www.fda.gov/ media/027151/downloa d Fact Sheet for Patients: https://www.fda.gov/ media/188573/downloa d Normal [facility] Comment on above: Performed By: #### C OVFLR #### [facility] ([id number]) [address] [place] [address] XR CHEST 1 VWon 07-14-2024 XR CHEST 1 VW XR CHEST 1 VW Single view chest History: Difficulty breathing, shortness of breath Comparison: None Impression: No acute pulmonary process. No pneumothorax or pleural effusion. Nonenlarged heart. Finalized by Bang Rossi MD on 07/14/2024 7:12 PM Normal [facility] CBC AND AUTO DIFFon 10-03-19 24 ABSOLUTE BASOPHIL 0.0 X10E9/L Normal 0.0-0.2 [facility] Comment on above: Performed By: #### C LINSEY [facility], 3040-3 #### [facility] ([id number]) [address] [place] [address] ABSOLUTE NEUTROPHIL 6.6 X10E9/L Normal 1.5-6.6 [facility] Comment on above: Performed By: #### C LINSEY [facility], 3040-3 #### [facility] ([id number]) [address] [place] [address]20 Basophils/100 WBC (Bld) 0.3 % [facility] Comment on above: Performed By: #### C MARCK STILES, 3040-3 #### [facility] ([id number]) [address] [place] [address] Eosinophils (Bld) [#/Vol] 0.1 10*3/uL Normal 0.0-0.4 [facility] Comment on above: Performed By: #### Corrie STILES CMP, 3 #### [facility] ([id number]) [address] [place] [address]872 Eosinophils/100 WBC (Bld) 1.4 % Normal [facility] Comment on above: Performed By: #### Corrie STILES CMP, 3 #### [facility] ([id number]) [address] [place] [address] Erythrocyte distribution width (RBC) [Ratio] 15.3 % High 11.5-15.0 [facility] Comment on above: Performed By: #### Corrie STILES CMP, 3039-09 #### [facility] ([id number]) [address] [place] [address] Hematocrit (Bld) [Volume fraction] 38.9 % Normal 35-47 [facility] Comment on above: Performed By: #### Corrie STILES CMP, 3039-09 #### [facility] ([id number]) [address] [place] [address] Hemoglobin (Bld) [Mass/Vol] 12.8 g/dL Normal 11.7-15.5 [facility] Comment on above: Performed By: #### Corrie STILES CMP, 3 #### [facility] ([id number]) [address] [place] [address]118 Lymphocytes (Bld) [#/Vol] 1.3 10*3/uL Normal 1.0-3.5 [facility] Comment on above: Performed By: #### Corrie STILES CMP, 3 #### [facility] ([id number]) [address] [place] [address] Lymphocytes/100 WBC (Bld) 15.0 % Normal [facility] Comment on above: Performed By: #### Corrie STILES CMP, 3039- #### [facility] ([id number]) [address] [place] [address]7742 MCH (RBC) [Entitic mass] 24.9 pg Low 27-34 [facility] Comment on above: Performed By: #### Corrie STILES, CMP, 3039- #### [facility] ([id number]) [address] [place] [address]997 MCHC (RBC) [Mass/Vol] 33.0 g/dL Normal 32-36 [facility] Comment on above: Performed By: #### Corrie STILES, CMP, 3039-09 #### [facility] ([id number]) [address] [place] [address]62 MCV (RBC) [Entitic vol] 76 fL Low 80-100 [facility] Comment on above: Performed By: #### Corrie STILES, CMP, 3039-09 #### [facility] ([id number]) [address] [place] [address]27 Monocytes (Bld) [#/Vol] 0.6 10*3/uL Normal 0-0.9 [facility] Comment on above: Performed By: #### Corrie STILES, CMP, 3039- #### [facility] ([id number]) [address] [place] [address]79[address] Monocytes/100 WBC (Bld) 6.6 % Normal [facility] Comment on above: Performed By: #### Corrie STILES, CMP, 3039-09 #### [facility] ([id number]) [address] [place] [address] Neutrophils/100 WBC (Bld) 76.7 % Normal [facility] Comment on above: Performed By: #### Corrie STILES, CMP, 3039-3 #### [facility] ([id number]) [address] [place] [address] 39446 Platelet mean volume (Bld) [Entitic vol] 8.6 fL Normal 7-12 [facility] Comment on above: Performed By: #### Corrie STILES CMP, 0-3 #### [facility] ([id number]) [address] [place] [address] 71369 Platelets (Bld) [#/Vol] 262 10*3/uL Normal 150-450 [facility] Comment on above: Performed By: #### Corrie STILES, CMP, 3039-3 #### [facility] ([id number]) [address] [place] [address] 49769 RBC COUNT 5.15 X10E12/L Normal 3.80-5.20 [facility] Comment on above: Performed By: #### Corrie STILES CMP, 3039-3 #### [facility] ([id number]) [address] [place] [address] 87360 WBC (Bld) [#/Vol] 8.6 10*3/uL Normal 4.0-11.0 [facility] Comment on above: Performed By: #### Corrie STILES, CMP, 3039-3 #### [facility] ([id number]) [address] [place] [address]684 COMPREHENSIVE METABOLIC PANE Harjit 10-03-2023 Albumin [Mass/Vol] 4.5 g/dL Normal 3.2-5.3 [facility] Comment on above: Performed By: #### Crorie STILES, CMP, 3039-3 #### [facility] ([id number]) [address] [place] [address]607 ALP [Catalytic activity/Vol] 66 U/L Normal 39-130 [facility] Comment on above: Performed By: #### Corrie BCA, CMP, 3039-3 #### [facility] ([id number]) [address] [place] [address] ALT [Catalytic activity/Vol] 13 U/L Normal 0-31 [facility] Comment on above: Performed By: #### C MARCK STILES, 3040-3 #### [facility] ([id number]) [address] [place] [address] 13856 Anion gap [Moles/Vol] 5 mmol/L Normal 5-15 [facility] Comment on above: Performed By: #### C MARCK STILES, 3039-3 #### [facility] ([id number]) [address] [place] [address] 46998 AST [Catalytic activity/Vol] 16 U/L Normal 0-41 [facility] Comment on above: Performed By: #### Corrie STILES CMP, 3039-3 #### [facility] ([id number]) [address] [place] [address] 26075 Bilirubin [Mass/Vol] 1.0 mg/dL Normal 0.3-1.2 [facility] Comment on above: Performed By: #### Corrie STILES CMP, 3039-3 #### [facility] ([id number]) [address] [place] [address] 52899 Calcium [Mass/Vol] 8.9 mg/dL Normal 8.5-10.5 [facility] Comment on above: Performed By: #### Corrie STILES CMP, 3039-3 #### [facility] ([id number]) [address] [place] [address] [place] [address] Chloride [Moles/Vol] 105 mmol/L Normal 98-109 [facility] Comment on above: Performed By: #### Corrie STILES CMP, 3039-3 #### [facility] ([id number]) [address] [place] [address] 39071 CO2 [Moles/Vol] 25 mmol/L Normal 22-32 [facility] Comment on above: Performed By: #### C LINSEY CMP, 3 #### [facility] ([id number]) [address] [place] [address]131 Creatinine [Mass/Vol] 0.83 mg/dL Normal 0.40-1.00 [facility] Comment on above: Result Comment: METH OD TRACEABLE TO IDMS STANDARD Performed By: #### C MARCK STILES, 3 #### [facility] [facility] ([id number]) [address] [place] [address] 12649 eGFR (CKD-EPI) NON-RACE DEPENDENT >90 Normal >59 [facility] Comment on above: Result Comment: Reported eGFR is based on the CKD-EPI 2020 equation that does not use a race coefficient. Performed By: #### C MARCK STILES, 3039-09 #### [facility] ([id number]) [address] [place] [address] 34140 Glucose [Mass/Vol] 88 mg/dL Normal 65-99 [facility] Comment on above: Performed By: #### C [facility], 3039-09 #### [facility] ([id number]) [address] [place] [address] 14053 Potassium [Moles/Vol] 3.4 mmol/L Low 3.5-5.0 [facility] Comment on above: Performed By: #### C MARCK STILES, 3039-09 #### [facility] ([id number]) [address] [place] [address] 79676 Protein [Mass/Vol] 7.7 g/dL Normal 6.0-8.0 [facility] Comment on above: Performed By: #### C MARCK STILES, 3039-09 #### [facility] ([id number]) [address] [place] [address] 27821 Sodium [Moles/Vol] 135 mmol/L Normal 134-146 [facility] Comment on above: Performed By: #### C MARCK STILES, 3 #### [facility] ([id number]) [address] [place] [address] Urea nitrogen [Mass/Vol] 11 mg/dL Normal 5-23 [facility] Comment on above: Performed By: #### C MARCK STILES, 3040-3 #### [facility] ([id number]) [address] [place] [address] 22359 HCG ( test) Ql (U)o n 10-03-2023 Beta HCG ( test) Ql (U) Negative Normal NEG [facility] Comment on above: Performed By: #### 2 106-3 #### [facility] ([id number]) [address] [place] [address] 00285 LIPASEon 10-03-2023 Lipase [Catalytic activity/Vol] 25 U/L Normal 17-40 [facility] Comment on above: Performed By: #### C [facility], 3040-3 #### [facility] ([id number]) [address] [place] [address] 29056 SARS/FLU A+B/RSV by NAAT/Mol ecularon 10-03-2023 SARS/FLU A+B/RSV by NAAT/Molecular FLU A PCR Negative (qualifier value) FLU B PCR Negative (qualifier value) RSV by PCR Negative (qualifier value) SARS CoV 2 Not detected (qualifier value) NOTE The Xpert Xpress SARS-CoV-2/Flu/RSV Plus test is a rapid, multiplexed real-time RT-PCR test intended for the simultaneous qualitative detection and differentiation of SARS-CoV-2, influenza A, influenza B and respiratory syncytial virus (RSV) viral RNA from individuals suspected of respiratory viral infection consistent with COVID-19 by their healthcare provider. This test has not been validated in asymptomatic patients. The Xpert Xpress SARS-CoV-2 test is intended for use by qualified and trained operators who are performing tests using either [employer] or [employer] systems and is limited to laboratories that meet the CLIA requirements to perform high and moderate complexity tests. The Xpert Xpress SARS-CoV-2/Flu/RSV Plus is only for use under the Food and Drug Administration's Emergency Use Authorization. Results are for the simultaneous detection and differentiation of SARS-CoV-2, influenza A, influenza B and RSV nucleic acids in clinical specimens. SARS-CoV-2, influenza A, influenza B and RSV RNA identified by this test are generally detectable in upper respiratory samples during the acute phase of infection. Positive results are indicative of the presence of the identified virus, but do not rule out bacterial infection or co-infection with other pathogens not detected by this test. Clinical correlation with patient history and other diagnostic information is necessary to determine patient infection status. The agent detected may not be the definite cause of disease. Negative results do not preclude SARS-CoV-2, influenza A, influenza B and RSV infection and should not be used as the sole basis for treatment or other patient management decisions. Negative results must be combined with clinical observations, patient history and epidemiological information. An Invalid result may occur with specimen-associated inhibition unable to be resolved with specimen repeat. Fact Sheet for Healthcare Providers: https://www.fda.gov/ media/859689/downloa d Fact Sheet for Patients: https://www.fda.gov/ media/024529/downloa d Normal [facility] Comment on above: Performed By: #### C OVFLR #### [facility] ([id number]) [address] [place] [address] 68278 URN MACROSCOPIC NURon 2023 BILIRUBIN DAILY Small Abnormal NEG [facility] Comment on above: Performed By: #### N UM #### [facility] ([id number]) [address] [place] [address] 30138 BLOOD/HGB DAILY Trace Abnormal NEG [facility] Comment on above: Performed By: #### N UM #### [facility] ([id number]) [address] [place] [address] 51934 GLUCOSE DAILY Negative Normal NEG [facility] Comment on above: Performed By: #### N UM #### [facility] ([id number]) [address] [place] [address] 49240 KETONES DAILY Trace Abnormal NEG [facility] Comment on above: Performed By: #### N UM #### [facility] ([id number]) [address] [place] [address] 29396 LEUKOCYTE ESTERASE DAILY Negative Normal NEG [facility] Comment on above: Performed By: #### N UM #### [facility] ([id number]) [address] [place] [address] 45979 NITRITE DAILY Negative Normal NEG [facility] Comment on above: Performed By: #### N UM #### [facility] ([id number]) [address] [place] [address] 13719 PH DAILY 5.5 Normal 5.0-8.5 [facility] Comment on above: Performed By: #### N UM #### [facility] ([id number]) [address] [place] [address] 44650 PROTEIN DAILY Trace Abnormal NEG [facility] Comment on above: Performed By: #### N UM #### [facility] ([id number]) [address] [place] [address] 74931 SPECIFIC GRAVITY DAILY >=1.030 Normal 1.003-1.035 [facility] Comment on above: Performed By: #### N UM #### [facility] ([id number]) [address] [place] [address] 15704 UROBILINOGEN DAILY 0.2 eu/dL Normal <1.1 [facility] Comment on above: Performed By: #### N UM #### [facility] ([id number]) [address] [place] [address] 60325 Urinalysis - AUTOMATEDon Appearance (U) cloudy [facility] [employer] Other Bilirubin Ql (U) Negative [employer] Other Color (U) yellow [employer] Other Glucose Ql (U) Negative [employer] Other Hemoglobin Ql (U) Negative [employer] Other Ketones Ql (U) Negative [employer] Other Leukocyte esterase Test strip Ql (U) Small [employer] Other Nitrite Ql (U) Negative [employer] Other pH (U) 6.0 [pH] [employer] Other Protein Ql (U) Negative [employer] Other Specific gravity (U) [Rel density] 1.020 [employer] Other Urobilinogen (U) [Mass/Vol] 0.2 mg/dL [employer] Other Urinalysis - AUTOMATED [employer] Other Urine Cultureon 07-25-2022 Urine Culture 15,000 [employer] Other Bacteria identified Cx Nom (U) Reason for Exam Dysuria Urine ORGANISM: Yvette albicans (O:CANALB) [place] Count 15,000 PERFORMED BY: [place] [address] PATHOLOGIST WEBSPHERE ADMINISTRATOR LETICIA VIRAMONTES M.D. Normal [facility] Comment on above: Performed By: #### V AGINITIS+ #### [facility] , #### CUU #### [place] [address] [place] Vaginitis Plus (VG+)on 07-25 Vaginitis Plus (VG+) Negative Negative [employer] Other Vaginitis Plus (VG+) Low - 0 . [employer] Other Vaginitis Plus (VG+) Positive Critically abnormal Negative [employer] Other Atopobium Vaginae Low - 0 Normal . [facility] Comment on above: Order Comment: Reaso n for Exam Dysuria Performed By: #### V AGINITIS+ #### [facility] , #### CUU #### [facility] [address] [place] [address] BVAB2 Low - 0 Normal . [facility] Comment on above: Order Comment: Reaso n for Exam Dysuria Performed By: #### V AGINITIS+ #### [facility] , #### CUU #### [address] Yvette Albicans, MADISYN Positive Critically abnormal Negative [facility] Comment on above: Order Comment: Reaso n for Exam Dysuria Result Comment: This test was developed and its performance characteristics determined by [facility]. It has not been cleared or approved by the Food and Drug Administration. Performed By: #### V AGINITIS+ #### [facility] , #### CUU #### [address] Yvette Glabrata, MADISYN Negative Normal Negative [facility] Comment on above: Order Comment: Reaso n for Exam Dysuria Result Comment: This test was developed and its performance characteristics determined by [facility]. It has not been cleared or approved by the Food and Drug Administration. PERFORMED BY: [place] [address] PATHOLOGIST WEBSPHERE ADMINISTRATOR LETICIA VIRAMONTES M.D. Performed By: #### V AGINITIS+ #### [facility] , #### CUU #### [address] Chlamydia Trachomotis, MADISYN Negative Normal Negative [facility] Comment on above: Order Comment: Reaso n for Exam Dysuria Performed By: #### V AGINITIS+ #### [facility] , #### CUU #### [facility] [address] [place] [address] [place] Megasphaera Low - 0 Normal . [facility] Comment on above: Order Comment: Reaso n for Exam Dysuria Result Comment: Calc ulate total score by adding the 3 individual bacterial vaginosis (BV) marker scores together. Total score is interpreted as follows: Total score 0-1: Indicates the absence of BV. Total score 2: Indeterminate for BV. Additional clinical data should be evaluated to establish a diagnosis. Total score 3-6: Indicates the presence of BV. This test was developed and its performance characteristics determined by [facility]. It has not been cleared or approved by the Food and Drug Administration. Performed By: #### V AGINITIS+ #### [facility] , #### CUU #### [address] Neisseria Gonorrhoeae, MADISYN Negative Normal Negative [facility] Comment on above: Order Comment: Reaso n for Exam Dysuria Result Comment: Perf ormed at: =G - [facility] [address] [id number] Stage Rigger: Mary Stone MD, Phone: [phone] Performed By: #### V AGINITIS+ #### [facility] , #### CUU #### [facility] [address] [place] [address] Tric Vag MADISYN Negative Normal Negative [facility] Comment on above: Order Comment: Reaso n for Exam Dysuria Performed By: #### V AGINITIS+ #### [facility] , #### CUU #### [address] MARGARET by IFAon 06-16-2022 Antinuclear Antibodies, IFA Negative Normal [facility] Comment on above: Result Comment: Nega tive <1:80 Borderline 1:80 Positive >1:80 ICAP nomenclature: AC-0 For more information about Hep-2 cell patterns use ANApatterns.org, the official website for the International Consensus on Antinuclear Antibody (MARGARET) Patterns (ICAP). Performed By: #### A NAIFA #### [facility] [address] [place] [address] Dr. Meghna Lugo RHEUMATOID FACTORon 06-14-20 RA Latex Turbid. <10.0 Normal <14.0 [facility] Comment on above: Performed By: #### R F #### [facility] [address] [place] [address] Dr. Meghna Lugo CBC AUTO DIFFon 06-12-2022 BASO # 0.0 103/ul Normal 0.0-0.1 [facility] Comment on above: Performed By: #### C BC #### [facility] [address] [place] [address] Dr. Meghna Lugo Basophils/100 WBC (Bld) 0.6 % Normal 0.2-2.0 [facility] Comment on above: Performed By: #### C BC #### [facility] [address] [place] [address] Dr. Meghna Lugo EO # 0.1 103/ul Normal 0.0-0.7 [facility] Comment on above: Performed By: #### C BC #### [facility] [address] [place] [address] Dr. Meghna Lugo Eosinophils/100 WBC (Bld) 0.7 % Critically low 0.9-7.0 [facility] Comment on above: Performed By: #### C BC #### [facility] [address] [place] [address] Dr. Meghna Lugo Erythrocyte distribution width (RBC) [Ratio] 13.3 % Normal 11.0-15.0 [facility] Comment on above: Performed By: #### C BC #### [facility] [address] [place] [address] Dr. Meghna Lugo Hematocrit (Bld) [Volume fraction] 39.1 % Normal 36.0-48.0 [facility] Comment on above: Performed By: #### C BC #### [facility] [address] [place] [address] Dr. Meghna Lugo Hemoglobin (Bld) [Mass/Vol] 12.9 g/dL Normal 12.0-16.0 [facility] Comment on above: Performed By: #### C BC #### [facility] [address] [place] [address] Dr. Meghna Lugo IG # 0.02 10e3/ul Normal 0.00-0.03 [facility] Comment on above: Performed By: #### C BC #### [facility] [address] [place] [address] Dr. Meghna Lugo IG % 0.3 % Normal 0.0-0.5 [facility] Comment on above: Performed By: #### C BC #### [facility] [address] [place] [address] Dr. Meghna Lugo LYMPH # 1.6 103/ul Normal 1.2-3.8 [facility] Comment on above: Performed By: #### C BC #### [facility] [address] [place] [address] Dr. Meghna Lugo Lymphocytes/100 WBC (Bld) 21.7 % Normal 20.5-60.0 [facility] Comment on above: Performed By: #### C BC #### [facility] [address] [place] [address] Dr. Meghna Lugo MANUAL DIFF REQ NO Normal [facility] Comment on above: Performed By: #### C BC #### [facility] [address] [place] [address] Dr. Meghna Lugo MCH (RBC) [Entitic mass] 27.4 pg Normal 26.7-34.0 [facility] Comment on above: Performed By: #### C BC #### [facility] [address] [place] [address] Dr. Meghna Lugo MCHC (RBC) [Mass/Vol] 33.0 g/dL Normal 29.9-35.2 [facility] Comment on above: Performed By: #### C BC #### [facility] [address] [place] [address] Dr. Meghna Lugo MCV (RBC) [Entitic vol] 83.2 fL Normal 81.0-99.0 [facility] Comment on above: Performed By: #### C BC #### [facility] [address] [place] [address] Dr. Meghna Lugo MONO # 0.4 103/ul Normal 0.3-0.8 [facility] Comment on above: Performed By: #### C BC #### [facility] [address] [place] [address] Dr. Meghna Lugo Monocytes/100 WBC (Bld) 5.6 % Normal 1.7-12.0 [facility] Comment on above: Performed By: #### C BC #### [facility] [address] [place] [address] Dr. Meghna Lugo NEUT # 5.1 103/ul Normal 1.4-6.5 [facility] Comment on above: Performed By: #### C BC #### [facility] [address] [place] [address] Dr. Meghna Lugo Neutrophils/100 WBC (Bld) 71.1 % Normal 43.0-75.0 [facility] Comment on above: Performed By: #### C BC #### [facility] [address] [place] [address] Dr. Meghna Lugo Platelet mean volume (Bld) [Entitic vol] 10.4 fL Normal 9.5-13.5 [facility] Comment on above: Performed By: #### C BC #### [facility] [address] [place] [address] Dr. Meghna Lugo PLT 266 103/ul Normal 150-450 [facility] Comment on above: Performed By: #### C BC #### [facility] [address] [place] [address] Dr. Meghna Lugo RBC 4.70 106/ul Normal 4.20-5.40 [facility] Comment on above: Performed By: #### C BC #### [facility] [address] [place] [address] Dr. Meghna Lugo WBC 7.2 103/ul Normal 4.0-11.0 [facility] Comment on above: Performed By: #### C BC #### [facility] [address] [address] [address] Meghna Lugo CRPon 06-12-2022 CRP [Mass/Vol] mg/L Normal <=1.0 [facility] Comment on above: Performed By: #### T SH, BMP, LIVER, CRP, LIPID #### [facility] [address] [address] [address] Meghna Lugo GLYCOHEMOGLOBIN A1Con 2021 ADA RECOMMENDATION SEE BELOW Normal [facility] Comment on above: Result Comment: ADA RECOMMENDED LIMIT 4.0 - 6.0 ADA THERAPEUTIC TARGET < 7.0 ACTION SUGGESTED > 7.0 Performed By: #### A 1C #### [facility] [address] [place] [address] Dr. Meghna Lugo Glucose [Mass/Vol] 97 mg/dL Normal [facility] Comment on above: Performed By: #### A 1C #### [facility] [address] [place] [address] Dr. Meghna Lugo HbA1c (Bld) [Mass fraction] 5.0 % Normal 4.5-6.2 [facility] Comment on above: Performed By: #### A 1C #### [facility] [address] [place] [address] Dr. Meghna Lugo LIPID PROFILEon 06-12-2022 CHOL-HDL RATIO NORM SEE BELOW Normal [facility] Comment on above: Result Comment: 3.3 - 4.4 LOW RISK 4.4 - 7.1 AVERAGE RISK 7.1 - 11.0 MODERATE RISK >11.0 HIGH RISK Performed By: #### T SH, BMP, LIVER, CRP, LIPID #### [facility] [address] [place] [address] Dr. Meghna Lugo Cholesterol [Mass/Vol] 121 mg/dL Normal <=200 [facility] Comment on above: Performed By: #### T SH, BMP, LIVER, CRP, LIPID #### [facility] [address] [place] [address] Dr. Meghna Lugo Cholesterol in HDL [Mass/Vol] 68 mg/dL Critically high 40-60 [facility] Comment on above: Performed By: #### T SH, BMP, LIVER, CRP, LIPID #### [facility] [address] [address] [address] Meghna Lugo Cholesterol in LDL [Mass/Vol] 36.8 mg/dL Normal [facility] Comment on above: Performed By: #### T SH, BMP, LIVER, CRP, LIPID #### [facility] [address] [address] [address] Meghna Lugo Cholesterol.total/C holesterol in HDL [Mass ratio] 1.8 {ratio} Normal [facility] Comment on above: Performed By: #### T SH, BMP, LIVER, CRP, LIPID #### [facility] [address] [address] [address] Meghna Lugo HDL NORMAL > or = 60 mg/dl - LOW CARDIOVASCULAR RISK <40 mg/dl - HIGH CARDIOVASCULAR RISK Normal [facility] Comment on above: Performed By: #### T SH, BMP, LIVER, CRP, LIPID #### [facility] [address] [address] [address] Meghna Lugo LDL CALC NORMAL SEE BELOW Normal [facility] Comment on above: Result Comment: <100 mg/dl OPTIMAL 100 - 129 mg/dl NEAR OR ABOVE OPTIMAL 130 - 159 mg/dl BORDERLINE HIGH 160 - 189 mg/dl HIGH >190 mg/dl VERY HIGH Performed By: #### T SH, BMP, LIVER, CRP, LIPID #### [facility] [address] [address] [address] Meghna Lugo Triglyceride [Mass/Vol] 81 mg/dL Normal <=150 [facility] Comment on above: Performed By: #### T SH, BMP, LIVER, CRP, LIPID #### [facility] [address] [address] [address] Meghna Lugo VLDL CALC 16.2 mg/dL Normal [facility] Comment on above: Performed By: #### T SH, BMP, LIVER, CRP, LIPID #### [facility] [address] [address] [address] Meghna Lugo LIVER PROFILEon 06-12-2022 Albumin [Mass/Vol] 4.2 g/dL Normal 3.4-5.0 [facility] Comment on above: Performed By: #### T SH, BMP, LIVER, CRP, LIPID #### [facility] [address] [place] [address] Dr. Meghna Lugo Albumin/Globulin [Mass ratio] 1.2 {ratio} Normal [facility] Comment on above: Performed By: #### T SH, BMP, LIVER, CRP, LIPID #### [facility] [address] [place] [address] Dr. Meghna Lugo ALP [Catalytic activity/Vol] 79 U/L Normal 46-116 [facility] Comment on above: Performed By: #### T SH, BMP, LIVER, CRP, LIPID #### [facility] [address] [place] [address] Dr. Meghna Lugo ALT [Catalytic activity/Vol] 9 U/L Critically low 14-59 [facility] Comment on above: Performed By: #### T SH, BMP, LIVER, CRP, LIPID #### [facility] [address] [place] [address] Dr. Meghna Lugo AST [Catalytic activity/Vol] 7 U/L Critically low 15-37 [facility] Comment on above: Performed By: #### T SH, BMP, LIVER, CRP, LIPID #### [facility] [address] [place] [address] Dr. Meghna Lugo BILI, CONJUGATED 0.2 mg/dL Normal 0.0-0.2 [facility] Comment on above: Performed By: #### T SH, BMP, LIVER, CRP, LIPID #### [facility] [address] [place] [address] Dr. Meghna Lugo Bilirubin [Mass/Vol] 0.7 mg/dL Normal 0.2-1.0 [facility] Comment on above: Performed By: #### T SH, BMP, LIVER, CRP, LIPID #### [facility] [address] [place] [address] Dr. Meghna Lugo Globulin (S) [Mass/Vol] 3.5 g/dL Normal [facility] Comment on above: Performed By: #### T SH, BMP, LIVER, CRP, LIPID #### [facility] [address] [place] [address] Dr. Meghna Lugo Protein [Mass/Vol] 7.7 g/dL Normal 6.4-8.2 [facility] Comment on above: Performed By: #### T SH, BMP, LIVER, CRP, LIPID #### [facility] [address] [place] [address] Dr. Meghna Lugo PROF CHEM 8 (BAS METB)on Anion gap [Moles/Vol] 10.6 mmol/L Normal [facility] Comment on above: Performed By: #### T SH, BMP, LIVER, CRP, LIPID #### [facility] [address] [place] [address] Dr. Meghna Lugo Calcium [Mass/Vol] 9.2 mg/dL Normal 8.5-10.1 [facility] Comment on above: Performed By: #### T SH, BMP, LIVER, CRP, LIPID #### [facility] [address] [place] [address] Dr. Meghna Lugo Chloride [Moles/Vol] 102 mmol/L Normal 98-107 [facility] Comment on above: Performed By: #### T SH, BMP, LIVER, CRP, LIPID #### [facility] [address] [place] [address] Dr. Meghna Lugo CO2 [Moles/Vol] 28.9 mmol/L Normal 21.0-32.0 [facility] Comment on above: Performed By: #### T SH, BMP, LIVER, CRP, LIPID #### [facility] [address] [place] [address] Dr. Meghna Lugo Creatinine [Mass/Vol] 0.88 mg/dL Normal 0.55-1.02 [facility] Comment on above: Performed By: #### T SH, BMP, LIVER, CRP, LIPID #### [facility] [address] [place] [address] Dr. Meghna Lugo EGFR-AF GABONESE >60 Normal >=60 [facility] Comment on above: Performed By: #### T SH, BMP, LIVER, CRP, LIPID #### [facility] [address] [address] [address] Meghna Lugo EGFR-NON AF GABONESE >60 Normal >=60 [facility] Comment on above: Performed By: #### T SH, BMP, LIVER, CRP, LIPID #### [facility] [facility] [address] [address] [address] Meghna Lugo Glucose [Mass/Vol] 101 mg/dL Normal 74-106 [facility] Comment on above: Performed By: #### T SH, BMP, LIVER, CRP, LIPID #### [facility] [address] [address] [address] Meghna Lugo Potassium [Moles/Vol] 3.5 mmol/L Normal 3.5-5.1 [facility] Comment on above: Performed By: #### T SH, BMP, LIVER, CRP, LIPID #### [facility] [address] [place] [address] Dr. Meghna Lugo Sodium [Moles/Vol] 138 mmol/L Normal 136-145 [facility] Comment on above: Performed By: #### T SH, BMP, LIVER, CRP, LIPID #### [facility] [address] [address] [address] Meghna Lugo Urea nitrogen [Mass/Vol] 13.0 mg/dL Normal 7.0-18.0 [facility] Comment on above: Performed By: #### T SH, BMP, LIVER, CRP, LIPID #### [facility] [address] [address] [address] Meghna Lugo Urea nitrogen/Creatinine [Mass ratio] 14.8 mg/mg Normal [facility] Comment on above: Performed By: #### T SH, BMP, LIVER, CRP, LIPID #### [facility] [address] [place] [address] Dr. Meghna Lugo [facility] 7 mm/hr Normal <=20 [facility] Comment on above: Performed By: #### S EDR #### [facility] [address] [place] [address] Dr. Meghna Lugo TSHon 06-12-2022 TSH 0.529 uIU/mL Normal 0.358-3.740 [facility] Comment on above: Performed By: #### T SH, BMP, LIVER, CRP, LIPID #### [facility] [address] [address] [address] Meghna Lugo COVID/FLU RT-PCRon SARS-CoV-2 (COVID-19) RNA MADISYN+probe Ql (Unsp spec) Positive [employer] Other COVID/FLU RT-PCR Negative [employer] Other Quick Strepon 04-17-2022 S. pyogenes Org specific cx Ql (Throat) Negative [employer] Other Urinalysis - AUTOMATEDon Appearance (U) clear [employer] Other Bilirubin Ql (U) Negative [employer] Other Color (U) yellow [employer] Other Glucose Ql (U) Negative [employer] Other Hemoglobin Ql (U) Negative [employer] Other Ketones Ql (U) Negative [employer] Other Leukocyte esterase Test strip Ql (U) Negative [employer] Other Nitrite Ql (U) Negative [employer] Other pH (U) 8.0 [pH] [employer] Other Protein Ql (U) Negative [employer] Other Specific gravity (U) [Rel density] 1.025 [employer] Other Urobilinogen (U) [Mass/Vol] 0.20 mg/dL [employer] Other Urinalysis - AUTOMATED [employer] Other Vital Signs Date Time Vital Sign Value Performing Clinician Facility 08-25-2024 15:08-0500 Body height 170.2 cm Joaquín Branch MD Work Phone: [facility] 08-25-2024 15:08-0500 Body mass index (BMI) [Ratio] 28.35 kg/m2 Joaquín Branch MD Work Phone: [facility] 08-25-2024 15:08-0500 Body temperature 97.81 [degF] Joaquín Branch MD Work Phone: [facility] 08-25-2024 15:08-0500 Body weight 82.1 kg Joaquín Branch MD Work Phone: [facility] 08-25-2024 15:08-0500 Diastolic blood pressure 56 mm[Hg] Joaquín Branch MD Work Phone: [facility] 08-25-2024 15:08-0500 Heart rate 91 /min Joaquín Branch MD Work Phone: [facility] 08-25-2024 15:08-0500 Respiratory rate 22 /min Joaquín Branch MD Work Phone: [facility] 08-25-2024 15:08-0500 SaO2% (BldA) [Mass fraction] 99 % Joaquín Branch MD Work Phone: [facility] 08-25-2024 15:08-0500 Systolic blood pressure 108 mm[Hg] Joaquín Branch MD Work Phone: [facility] 07-30-2024 10:23-0500 Body height 170.2 cm Joaquín Branch MD Work Phone: [facility] 07-30-2024 10:23-0500 Body mass index (BMI) [Ratio] 28.04 kg/m2 Joaquín Branch MD Work Phone: [facility] 07-30-2024 10:23-0500 Body temperature 97.3 [degF] Joaquín Branch MD Work Phone: [facility] 07-30-2024 10:23-0500 Body weight 81.19 kg Joaquín Branch MD Work Phone: [facility] 07-30-2024 10:23-0500 Diastolic blood pressure 58 mm[Hg] Joaquín Branch MD Work Phone: [facility] 07-30-2024 10:23-0500 Heart rate 104 /min Joaquín Branch MD Work Phone: [facility] 07-30-2024 10:23-0500 Respiratory rate 20 /min Joaquín Branch MD Work Phone: [facility] 07-30-2024 10:23-0500 SaO2% (BldA) [Mass fraction] 98 % Joaquín Branch MD Work Phone: [facility] 07-30-2024 10:23-0500 Systolic blood pressure 100 mm[Hg] Joaquín Branch MD Work Phone: [facility] 07-27-2024 14:01-0500 Body height 170.2 cm Joaquín Branch MD Work Phone: [facility] 07-27-2024 14:01-0500 Body mass index (BMI) [Ratio] 28.47 kg/m2 Joaquín Branch MD Work Phone: [facility] 07-27-2024 14:01-0500 Body temperature 97.7 [degF] Joaquín Branch MD Work Phone: [facility] 07-27-2024 14:01-0500 Body weight 82.46 kg Joaquín Branch MD Work Phone: [facility] 07-27-2024 14:01-0500 Diastolic blood pressure 68 mm[Hg] Joaquín Branch MD Work Phone: [facility] 07-27-2024 14:01-0500 Heart rate 123 /min Joaquín Branch MD Work Phone: [facility] 07-27-2024 14:01-0500 Respiratory rate 18 /min Joaquín Branch MD Work Phone: [facility] 07-27-2024 14:01-0500 SaO2% (BldA) [Mass fraction] 97 % Joaquín Branch MD Work Phone: [facility] 07-27-2024 14:01-0500 Systolic blood pressure 126 mm[Hg] Joaquín Branch MD Work Phone: [facility] 07-03-2023 17:45-0500 Body height 170.18 cm Lorraine Shira Other [employer] Other 07-03-2023 17:45-0500 Body mass index (BMI) [Ratio] 23.96 kg/m2 Lorraine Shira Other [employer] Other 07-03-2023 17:45-0500 Body temperature 97.3 [degF] Lorraine Shira Other [employer] Other 07-03-2023 17:45-0500 Body weight 69.4 kg Lorraine Shira Other [employer] Other 07-03-2023 17:45-0500 Respiratory rate 18 /min Lorraine Shira Other [employer] Other 07-03-2023 17:45-0500 SaO2% (BldA) [Mass fraction] 98 % Lorraine Shira Other [employer] Other 06-06-2023 11:20-0500 Body height 170.18 cm Lorraine Shira Other [employer] Other 06-06-2023 11:20-0500 Body mass index (BMI) [Ratio] 19.73 kg/m2 Lorraine Shira Other [employer] Other 06-06-2023 11:20-0500 Body temperature 98.5 [degF] Lorraine Shira Other [employer] Other 06-06-2023 11:20-0500 Body weight 57.15 kg Lorraine Shira Other [employer] Other 06-06-2023 11:20-0500 Respiratory rate 21 /min Lorraine Shira Other [employer] Other 06-06-2023 11:20-0500 SaO2% (BldA) [Mass fraction] 97 % Lorraine Shira Other [employer] Other 07-25-2022 11:00-0500 Body height 170.18 cm Triny Gaymond Other [employer] Other 07-25-2022 11:00-0500 Body mass index (BMI) [Ratio] 23.49 kg/m2 Triny Gaymond Other [employer] Other 07-25-2022 11:00-0500 Body temperature 97.6 [degF] Triny Gaymond Other [employer] Other 07-25-2022 11:00-0500 Body weight 68.04 kg Triny Gaymond Other [employer] Other 07-25-2022 11:00-0500 Diastolic blood pressure 68 mm[Hg] Triny Gaymond Other [employer] Other 07-25-2022 11:00-0500 Respiratory rate 18 /min Triny Mari Other [employer] Other 07-25-2022 11:00-0500 SaO2% (BldA) [Mass fraction] 100 % Triny Guerra Other [employer] Other 07-25-2022 11:00-0500 Systolic blood pressure 97 mm[Hg] Triny Guerra Other [employer] Other 04-17-2022 12:05-0400 Body height 170.18 cm Triny Guerra Other [employer] Other 04-17-2022 12:05-0400 Body mass index (BMI) [Ratio] 24.27 kg/m2 Triny Guerra Other [employer] Other 04-17-2022 12:05-0400 Body temperature 101 [degF] Triny Guerra Other [employer] Other 04-17-2022 12:05-0400 Body weight 70.31 kg Triny Guerra Other [employer] Other 04-17-2022 12:05-0400 Respiratory rate 18 /min Triny Guerra Other [employer] Other 04-17-2022 12:05-0400 SaO2% (BldA) [Mass fraction] 99 % Triny Guerra Other [employer] Other Encounters Encounter Date Encounter Type Care Provider Facility Start: 08-25-2024 End: 08-25-2024 ambulatory JOAQUÍN BRANCH Not Available Start: 08-25-2024 End: 08-25-2024 Office outpatient visit 15 minutes Joaquín Branch MD Work Phone: [facility] Comment on above: Allergic contact nhi matitis due to cosmetics (Primary Dx) Start: 08-25-2024 End: 08-25-2024 Bamboo flowsheet Joaquín Branch MD Work Phone: [facility] Start: 08-25-2024 End: 08-25-2024 Bamboo flowsheet Joaquín Branch MD Work Phone: [facility] Start: 07-30-2024 End: 07-30-2024 Bamboo flowsheet Joaquín Branch MD Work Phone: [facility] Start: 07-30-2024 End: 07-30-2024 Bamboo flowsheet Joaquín Branch MD Work Phone: [facility] Start: 07-30-2024 End: 07-30-2024 Office outpatient visit 15 minutes Joaquín Branch MD Work Phone: [facility] Comment on above: Acute UTI (Primary D x) Start: 07-30-2024 End: 07-30-2024 ambulatory JOAQUÍN BRANCH Not Available Start: 07-27-2024 End: 07-27-2024 Bamboo flowsheet Joaquín Bracnh MD Work Phone: [facility] Start: 07-27-2024 End: 07-27-2024 Bamboo flowsheet Joaquín Branch MD Work Phone: [facility] Start: 07-27-2024 End: 07-27-2024 Office outpatient visit 15 minutes Joaquín Branch MD Work Phone: [facility] Comment on above: Acute bronchitis due to other specified organisms (Primary Dx); Mild intermittent asthma, unspecified whether complicated ([facility] Start: 07-27-2024 End: 07-27-2024 ambulatory JOAQUÍN BRANCH Not Available Start: 07-22-2024 End: 07-22-2024 ambulatory CHANDA DOLORES Not Available Start: 07-22-2024 End: 07-22-2024 Bamboo flowsheet Chanda Dolores DO Work Phone: [facility] Start: 07-22-2024 End: 07-29-2024 Bamboo flowsheet Chanda Wrayo DO Work Phone: [facility] Start: 07-22-2024 End: 07-29-2024 Clinisync Result Encounter Generic External Data Provider [facility] External Department Unsolicited Start: 07-14-2024 End: 07-14-2024 Emergency department patient visit JOAQUÍN [facility] Start: 10-22-2023 End: 10-22-2023 ambulatory JOAQUÍN JOSE CARLOS Not Available Start: 10-03-2023 End: 10-03-2023 Emergency department patient visit [facility] Start: 07-03-2023 End: 07-03-2023 ambulatory Lorraine Shira Other [employer] Other Start: 07-03-2023 Office outpatient vi sit 15 minutes Lorraine Shira [facility] Start: 06-06-2023 End: 06-06-2023 ambulatory Lorraine Shira Other [employer] Other Start: 06-06-2023 Office outpatient vi sit 15 minutes Lorraine Shira [facility] Start: 07-27-2022 End: 07-27-2022 ambulatory Triny Guerra Other [employer] Other Start: 07-27-2022 Telephone encounter Triny Guerra [facility] Start: 07-25-2022 Office outpatient vi sit 15 minutes Triny Guerra [facility] Start: 07-25-2022 End: 07-25-2022 ambulatory Triny Guerra Facility:[facility] Start: 07-25-2022 End: 07-25-2022 ambulatory MD Joaquín Branch Work Phone: [facility] Work Phone: Start: 07-25-2022 End: 07-25-2022 Departed Referred MD Joaquín Branch Work Phone: [facility] [place] Work Phone: Start: 06-16-2022 Encounter for genera l adult medical examination without abnormal findings DR JOAQUÍN BRANCH [facility] Start: 06-12-2022 End: 06-13-[address] JOAQUÍN BRANCH Facility:[facility] Start: 06-12-2022 End: 06-13-2022 Encounter for general adult medical examination without abnormal findings DR JOAQUÍN BRANCH Facility:[facility] Start: 04-17-2022 End: 04-17-2022 ambulatory Triny Geurra Other [employer] Other Start: 04-17-2022 Office outpatient vi sit 15 minutes Triny Guerra [facility] Procedures Date Procedure Procedure Detail Performing Clinician Start: 07-30-2024 Urnls dip stick/tabl et rgnt non-auto w/o micrscp Joaquín Branch MD Work Phone: Start: 07-22-2024 IGP,APTIMA HPV,AGE GDLN Kaylen Aragon PA Work Phone: Plan of Treatment Date Care Activity Detail Author Start: 07-27-2025 End: 07-27-2025 Patient encounter procedure 07/27/2025 11:00 AM EST Office Visit [facility] [address] [place] [id number] Chanda Bernal, [address] [place] [address] [facility] Start: 07-30-2024 End: 07-30-2025 URINARY TRACT INFECTION (HTRX) URINARY TRACT INFECTION (HTRX) Lab Routine Acute UTI Expected: 07/30/2024 (Approximate), Expires: 07/30/2025 [facility] Work Phone: Comment on above: Expected: 07/30/2024 (Approximate), Expires: 07/30/2025 Start: 07-30-2024 End: 07-30-2024 Patient encounter procedure 07/30/2024 10:15 AM EST Office Visit [facility] [address] [place] [address] Joaquín Branch MD [address] [place] [address] Arrived [facility] Comment on above: Arrived Start: 07-27-2024 End: 07-27-2024 Patient encounter procedure [facility] Comment on above: Arrived Start: 03-08-2024 Influenza vaccination Influenz a Vaccine (#1) [facility] Start: 07-25-2022 Bacteria identified in Urine by Culture [facility] Atopobium vaginae DN A [Presence] in Vaginal fluid by MADISYN with probe detection [facility] Bacterial vaginosis associated bacterium 2 DNA [Presence] in Vaginal fluid by MADISYN with probe detection [facility] Megasphaera sp type 1 DNA [Presence] in Vaginal fluid by MADISYN with probe detection [facility] Payers Date Payer Category Payer [facility] [id number] 2022 [facility] [id number] 2022 Medicaid [id number] 2022 Self-pay [id number] 2022 Unknown [id number] 2000 Unknown [id number]. [id number] 2000 Unknown [id number]. 2.1286 2000 Unknown [id number]. 2.1286 2000 Unknown [id number]. [id number] 2000 Unknown [id number] [id number]. 2.1259 2000 Unknown [id number] [id number]. 2.1259 2000 Unknown [id number] [id number]. 2.1259 2000 Unknown [id number] [id number]. 2.1259 1959 Unknown [id number] [facility] [id number] Unknown [id number] [id number] Social History Date Type Detail Facility Unknown if ever smoked [employer] Other Start: 10-22-2023 End: 08-25-2024 Sex Assigned At [employer] Other Start: 2000 Sex Assigned At Female F [facility] Start: 10-22-2023 Tobacco smoking status NHIS Never smoked tobacco [facility] Start: 10-22-2023 Tobacco use and exposure Smokeless tobacco non-user [facility] Start: 10-22-2023 End: 08-25-2024 History of Social function [facility] Start: 2000 Sex assigned at Not on file [facility] Clinical Notes 04-17-2022 to 08-25-2024 Joaquín Branch MD - 08/25/2024 3:25 PM Ana Branch MD - 08/25/2024 3:00 PM Ana Branch MD - 07/30/2024 10:43 AM Ana Branch MD - 07/30/2024 10:15 AM EST Note Date & Type Note Facility 08-25-2024 History of Presen t illness Narrative Associated Problem(s): Allergic contact dermatitis due to cosmetics Likely reacting to new shampoo. Treat with prednisone and use hydroxyzine PRN. Use lotion PRN. Images from the original note were not included. Subjective Patient ID: Mary Kaerns is a 24 y.o. female who presents for Rash (On chest and neck). C/o rash for 4-5 days. Noticed itching on scalp and rash on neck and chest. Itching on arms but no visible rash. Red, raised bumps. C/o face camejo but chest very itchy. Tried new shampoo and was scented. No change in soap, lotion or detergents. No new foods. Rash appears worse and redder after shower. Hot water makes it itch more. Stopped using shampoo. Not tried OTC creams or pills for itching or rash. Review of Systems Respiratory: Negative for cough, shortness of breath and wheezing. Cardiovascular: Negative for chest pain and palpitations. Gastrointestinal: Negative for abdominal pain, diarrhea, nausea and vomiting. Genitourinary: Negative for dysuria. Objective Physical Exam Constitutional: General: She is not in acute distress. Appearance: Normal appearance. HENT: Head: Normocephalic. Right Ear: Tympanic membrane normal. Left Ear: Tympanic membrane normal. Eyes: Extraocular Movements: Extraocular movements intact. Pupils: Pupils are equal, round, and reactive to light. Cardiovascular: Rate and Rhythm: Normal rate and regular rhythm. Heart sounds: No murmur heard. No friction rub. No gallop. Pulmonary: Effort: Pulmonary effort is normal. Breath sounds: Normal breath sounds. No wheezing, rhonchi or rales. Abdominal: General: Bowel sounds are normal. There is no distension. Palpations: Abdomen is soft. Tenderness: There is no abdominal tenderness. There is no guarding or rebound. Musculoskeletal: Cervical back: Neck supple. Right lower leg: No edema. Left lower leg: No edema. Neurological: Mental Status: She is alert. Assessment/Plan Problem List Items Addressed This Visit Allergic contact dermatitis due to cosmetics - Primary Likely reacting to new shampoo. Treat with prednisone and use hydroxyzine PRN. Use lotion PRN. Relevant Medications predniSONE (Deltasone) 10 MG tablet documented in this encounter [facility] 07-30-2024 History of Presen t illness Narrative Associated Problem(s): Acute UTI UA suggestive UTI and treat. Currently on levaquin and start macrobid for infection. Use pyridium for symptoms. Send urine for culture. Increase water intake and cranberry juice. Use motrin or tylenol for discomfort. Images from the original note were not included. Subjective Patient ID: Mary Kearns is a 23 y.o. female who presents for UTI. Concerned of possible UTI. C/o pain and burning with urination over the past 2 days. Increased frequency and urgency. Hesitancy and feels like not emptying all the way. Severe burning with urination. Pain in right flank and pain in lower abdomen. C/o hot and sweaty but no nausea. Afebrile. Trying to increase water intake. Not tried OTC for symptoms. Currently on levaquin since 07/27 for bronchitis which has improved. UTI Review of Systems Respiratory: Negative for cough, shortness of breath and wheezing. Cardiovascular: Negative for chest pain and palpitations. Gastrointestinal: Negative for abdominal pain, diarrhea, nausea and vomiting. Genitourinary: Negative for dysuria. Objective Physical Exam Constitutional: General: She is not in acute distress. Appearance: Normal appearance. HENT: Head: Normocephalic. Right Ear: Tympanic membrane normal. Left Ear: Tympanic membrane normal. Eyes: Extraocular Movements: Extraocular movements intact. Pupils: Pupils are equal, round, and reactive to light. Cardiovascular: Rate and Rhythm: Normal rate and regular rhythm. Heart sounds: No murmur heard. No friction rub. No gallop. Pulmonary: Effort: Pulmonary effort is normal. Breath sounds: Normal breath sounds. No wheezing, rhonchi or rales. Abdominal: General: Bowel sounds are normal. There is no distension. Palpations: Abdomen is soft. Tenderness: There is no abdominal tenderness. There is no guarding or rebound. Musculoskeletal: Cervical back: Neck supple. Right lower leg: No edema. Left lower leg: No edema. Neurological: Mental Status: She is alert. Assessment/Plan Problem List Items Addressed This Visit Acute UTI - Primary UA suggestive UTI and treat. Currently on levaquin and start macrobid for infection. Use pyridium for symptoms. Send urine for culture. Increase water intake and cranberry juice. Use motrin or tylenol for discomfort. Relevant Medications nitrofurantoin, macrocrystal-monohydrate, (Macrobid) 100 MG capsule phenazopyridine (Pyridium) 200 MG tablet Other Relevant Orders URINARY TRACT INFECTION (HTRX) POCT Urinalysis dipstick (Completed) documented in this encounter [facility] 07-27-2024 History of Presen t illness Narrative Associated Problem(s): Acute bronchitis due to other specified organisms Take antibiotics for 7 days. Use sudafed or other decongestants as needed. Use robitussin or robittussin-DM for cough. Use afrin for congestion but no longer than 3 days. Use mucinex to bring up phlegm. Use motrin or tylenol for fever, aches or pains. Increase fluid intake and rest. Should improve over next 5-7 days and if no better or worse call office. Images from the original note were not included. Subjective Patient ID: Mary Kearns is a 23 y.o. female who presents for Cough, Sore Throat, and Headache. C/o cough, congestion, and rhinorrhea x 5 days. Hot and sweaty but not check temp. Severe fatigue and no energy. Frequent cough productive sputum. Chest tight and SOB. MURRAY and sinus pressure in forehead and cheeks along with postnasal drip. Ears plugged and popping. Sore throat and pain to swallow. Mild nausea. Denies recent sick contacts. Using OTC medication and mild relief. To ER 07/14 after 1 week of symptoms and given zpack for bronchitis. Seemed to improve now worse over past several days. No improvement in symptoms since onset. Review of Systems Respiratory: Positive for cough and shortness of breath. Negative for wheezing. Cardiovascular: Negative for chest pain and palpitations. Gastrointestinal: Negative for abdominal pain, diarrhea, nausea and vomiting. Genitourinary: Negative for dysuria. Objective Physical Exam Constitutional: General: She is not in acute distress. Appearance: Normal appearance. HENT: Head: Normocephalic. Right Ear: Tympanic membrane normal. Left Ear: Tympanic membrane normal. Eyes: Extraocular Movements: Extraocular movements intact. Pupils: Pupils are equal, round, and reactive to light. Cardiovascular: Rate and Rhythm: Normal rate and regular rhythm. Heart sounds: No murmur heard. No friction rub. No gallop. Pulmonary: Effort: Pulmonary effort is normal. Breath sounds: Normal breath sounds. No wheezing, rhonchi or rales. Abdominal: General: Bowel sounds are normal. There is no distension. Palpations: Abdomen is soft. Tenderness: There is no abdominal tenderness. There is no guarding or rebound. Musculoskeletal: Cervical back: Neck supple. Right lower leg: No edema. Left lower leg: No edema. Neurological: Mental Status: She is alert. Assessment/Plan Problem List Items Addressed This Visit Acute bronchitis due to other specified organisms - Primary Take antibiotics for 7 days. Use sudafed or other decongestants as needed. Use robitussin or robittussin-DM for cough. Use afrin for congestion but no longer than 3 days. Use mucinex to bring up phlegm. Use motrin or tylenol for fever, aches or pains. Increase fluid intake and rest. Should improve over next 5-7 days and if no better or worse call office. Relevant Medications levoFLOXacin (Levaquin) 750 MG tablet benzonatate (Tessalon) 200 MG capsule Other Visit Diagnoses Mild intermittent asthma, unspecified whether complicated ([facility]) Relevant Medications albuterol HFA 90 mcg/act inhaler documented in this encounter [facility] 07-03-2023 Evaluation note Encounter Date Diagnosis Assessment Notes Jun, Acute bilateral otitis media (ICD-10 - H66.93) Patient is a 22 yo female who presents with complaints of increased sinus pressure, nasal congestion, bilateral ear pain, fevers, and cough for the past few days. She was diagnosed with bronchitis a month ago and treated with a z-pack, Medrol dose pack. DDX includes sinusitis, viral URI. Otitis media, bacterial sinusitis. Based on patient exam and symptoms, she is being diagnosed with acute bilateral otitis media and sinusitis. She is being prescribed amoxicillin 5000 mg twice daily for 10 days and is encouraged to follow up with her PCP if symptoms persist or worsen. Jun, Sinusitis, unspecified chronicity, unspecified location (ICD-10 - J32.9) [employer] Other 11-30-2023 Evaluation note* Encounter Date Diagnosis Assessment Notes Treatment Notes Treatment Clinical Notes May, Acute bronchitis, unspecified organism (ICD-10 - J20.9) You were seen here for your cough, congestion and green/brown phlegm and shortness of breath. You are being diagnosed with acute bronchitis. Take the antibiotic azithromycin as directed. Take the medrol dose pack as directed. Use the inhaler as directed. Take tylenol and motrin as needed for fever or discomfort. Drink plenty of fluids. Follow up with your primary care provider in the next few days. If you develop chest pain, palpitations, fast heart beat, increased shortness of breath o rdifficulty breathing you need to go to the ER. [employer] Other 01-18-2023 Evaluation note* Encounter Date Diagnosis Assessment Notes Treatment Notes Treatment Clinical Notes Jul, Dysuria (ICD-10 - R30.0) Jul, Vaginal discharge (ICD-10 - N89.8) Vaginal discharge home care material was printed Drink plenty fluids, get plenty of rest. Take the Diflucan as prescribed until gone. We will notify you of your culture results. No intercourse for 2 weeks. Always use condom [employer] Other 10-11-2022 Evaluation note* Encounter Date Diagnosis Assessment Notes Treatment Notes Treatment Clinical Notes Apr, Contact with and (suspected) exposure to other viral communicable diseases (ICD-10 - Z20.828) Apr, COVID-19 (ICD-10 - U07.1) Discharge Instructions for COVID-19 (Suspected or Confirmed ) material was printed Drink plenty fluids, get plenty of rest. Take Tylenol, acetaminophen, up to 4 times a day for aches pains and fevers. Take the prednisone as prescribed until gone. Use your albuterol inhaler as prescribed as needed for cough or shortness of breath. You must quarantine for 5 days starting today due to your COVID diagnosis. Follow-up with your family physician if no improvement in 2 to 3 days. Apr, Dysuria (ICD-10 - R30.0) [employer] Other Evaluation noteNo assessment information available [facility] Work Phone: [email or web address] noteNo [employer] Other Evaluation note* Diagnosis Viral gastroenteritis- Primary Intestinal infection due to other organism, NEC Gastroesophageal reflux disease without esophagitis Esophageal reflux Disorder of both eustachian tubes Right ear impacted cerumen Impacted cerumen Right foot pain Pain in soft tissues of limb Acute bronchitis due to other specified organisms- Primary Mild intermittent asthma, unspecified whether complicated ([facility] documented [facility] this encounter [facility]* Diagnosis Viral gastroenteritis- Primary Intestinal infection due to other organism, NEC Gastroesophageal reflux disease without esophagitis Esophageal reflux Disorder of both eustachian tubes Right ear impacted cerumen Impacted cerumen Right foot pain Pain in soft tissues of limb Acute UTI- Primary Urinary tract infection, site not specified documented [facility] this encounter [facility]* Diagnosis Viral gastroenteritis- Primary Intestinal infection due to other organism, NEC Gastroesophageal reflux disease without esophagitis Esophageal reflux Disorder of both eustachian tubes Right ear impacted cerumen Impacted cerumen Right foot pain Pain in soft tissues of limb Allergic contact dermatitis due to cosmetics- Primary documented in this encounter [facility] Narrative - Reported* Type Description Date Medical History celiac sprue Medical History GERD Surgical History Ear tubes Surgical History Tonsillectomy Hospitalization History severe abdominal and [facility] pain [employer] [facility] [employer] Other History general Narrative - Reported* Type Description Date Medical History celiac sprue Medical History GERD Surgical History Ear tubes Surgical History Tonsillectomy Surgical History wisdom teeth Surgical History adnoidectomy Surgical History EGD Hospitalization History severe abdominal and [facility] pain [employer] [facility] [employer] Other Summary Purpose Family History No Family History Records FoundNo Family History Records FoundNo Family History Records FoundNo Family History Records Found Advance Directives Advance Directive Response Recorded Date/ Time Advance Directives No December 05, 8 3:11pm Chief Complaint and Reason for Visit Chief Complaint Dysuria Additional Source Comments REASON FOR VISIT (unrecogniz ed section and content) Reason Comments Cough Sore Throat Headache Reason Comments UTI Reason Comments Rash On chest and neck INFORMATION SOURCE (unrecogn ized section and content) DATE CREATED AUTHOR 06/16/2022 [facility] DATE CREATED AUTHOR AUTHOR'S ORGANIZ ATION 07/31/2022 [facility] DATE CREATED AUTHOR AUTHOR'S ORGANIZ ATION 07/20/2024 [facility] DATE CREATED AUTHOR AUTHOR'S ORGANIZ ATION 08/27/2024 [facility] [employer] Care Teams (unrecognized sec tion and content) Team Status: Inactive Member Role Status Dates Joaquín Branch MD Primary Care Provider Active ERVIN Lopez Attending Provider Active Team Status: Active Member Role Status Dates oJaquín Branch MD Primary Care Provider Active [facility] Relationship Specialty Start Date End Date Joaquín Branch MD [address] [place] [phone] PCP - General Family Medicine 10/22/23 [facility] Relationship Specialty Start Date End Date Joaquín Branch MD [address] [place] [phone] PCP - General Family [facility] 10/22/23 [facility] Relationship Specialty Start Date End Date Joaquín Branch MD [address] [place] [phone] PCP [facility] 10/22/23 [facility] Relationship Specialty Start Date End Date Joaquín Branch MD [address] [place] [phone] PCP - [facility] 10/22/23 [facility] Relationship Specialty Start Date End Date Joaquín Branch MD [address] [place] [phone] PCP [facility] 10/22/23 [facility] Relationship Specialty Start Date End Date Joaquín Branch MD [address] [place] [phone] PCP - [facility] 10/22/23 [facility] Relationship Specialty Start Date End Date Joaquín Branch MD [address] [place] [phone] PCP [facility] 10/22/23 [facility] Relationship Specialty Start Date End Date Joaquín Branch MD [address] [place] [phone] [facility] 10/22/23 Goals (unrecognized section and content) Goals may be documented in a n alternate section FOR RECORDS PERTAINING TO PATIENTS WHO ARE OR HAVE BEEN ENROLLED IN A CHEMICAL DEPENDENCY/SUBSTANCEABUSE PROGRAM, SOME INFORMATION MAY BE OMITTED. This clinical summary was aggregated from multiple sources. Caution should be exercised in using it in the provision of clinical care. This summary normalizes information from multiple sources, and as a consequence, information in this document may materially change the coding, format and clinical context of patient data. In addition, data may be omitted in some cases. CLINICAL DECISIONS SHOULD BE BASED ON THE PRIMARY CLINICAL RECORDS. [facility] [employer] [facility]. provides no warranty or guarantee of the accuracy or completeness of information in this document.
[2025-04-13 17:38] LABS: Iron 54.0 ug/dL (50.0-170.0); Percent Iron Saturation 12.8 %; Total Iron Binding Capacity 422.0 ug/dL (250.0-450.0)
[2025-04-13 17:41] LABS: Alanine Aminotransferase 20 U/L (14-59); Albumin Globulin Ratio 1.1; Albumin Level 4.4 g/dL (3.4-5.0); Alkaline Phosphatase 79 U/L (46-116); Anion Gap 13.4; Aspartate Amino Transferase 8 U/L (15-37); Blood Urea Nitrogen 14.0 mg/dL (7.0-18.0); Calcium 9.1 mg/dL (8.5-10.1); Carbon Dioxide 27.5 mmol/L (21.0-32.0); Chloride 103 mmol/L (98-107); Cholesterol 137 mg/dL (<=200); Estimated GFR (African America >60 (>=60 mL/min/1.73m^2); Estimated GFR (Non-African Ame >60 (>=60 mL/min/1.73m^2); Globulin 4.0 g/dL; Glucose 112 mg/dL (74-106); HDL Cholesterol 55 mg/dL (40-60); Potassium 3.9 mmol/L (3.5-5.1); Sodium 140 mmol/L (136-145); Thyroid Stimulating Hormone 0.494 uIU/mL (0.358-3.740); Total Protein 8.4 g/dL (6.4-8.2); Triglycerides 112 mg/dL (<=150); VLDL CHOLESTEROL 22.4 mg/dL
[2025-04-13 17:52] LABS: Ferritin 8.0 ng/mL (8.0-252.0)
[2025-04-13 20:12] LABS: Hematocrit 40.5 % (36.0-48.0); Hemoglobin 12.7 g/dL (12.0-16.0); Immature Granulocytes Abs Auto 0.02 10^3/uL (0.00-0.03); Immature Granulocytes Pct Auto 0.2 % (0.0-0.5); Lymphocytes Absolute Auto 2.0 10^3/uL (1.2-3.8); Mean Corpuscular HGB Conc 31.4 g/dL (29.9-35.2); Mean Corpuscular Hemoglobin 24.6 pg (26.7-34.0); Mean Corpuscular Volume 78.3 fL (81.0-99.0); Platelet Count 303 10^3/uL (150-450); Red Blood Count 5.17 10^6/uL (4.20-5.40); White Blood Count 8.2 10^3/uL (4.0-11.0)
== END 2025-04-13 16:55 | disposition home or self-care (01) ==
PROVIDERS: PCP Family Medicine; Visit Provider Family Medicine
DX: Z00.00 Encounter for general adult medical examination without abnormal findings (principal)
CPT/HCPCS: 36415; 80053; 80061; 82728; 83036; 83540; 83550; 84443; 85025

== ENCOUNTER 2025-04-14 16:07 | Outpatient (OUT) | payer BC, SELFPAY ==
--- NOTE | 2025-04-14 | XR_ITS ---
[facility] [place] [id number] Patient Name: AMOS ROIS MRN: [id number] date: 2000 Sex: F Assigned Patient Location: [facility] Current Patient Location: [facility] Accession/Order Number: [id number] Exam Date: 04/14/2025 16:18 Report Date: 04/14/2025 20:21 At the request of: DAVIS BRANCH MD Procedure: XR hip RT 2V w/ pelvis Single view pelvis 2 views right hip INDICATION: Pain in the right hip COMPARISON: None FINDINGS: No fracture dislocation identified. Mild left SI joint spurring. Soft tissues unremarkable. XR/XR hip RT 2V w/ pelvis IMPRESSION: Negative acute osseous abnormalities. Impression dictated by: Blayne Calhoun M.D. 04/14/2025 8:21 PM Dictation Location: [place] [address] Electronically authenticated by: [id number] Y Date: 04/14/2025 20:21
--- NOTE | 2025-04-14 | XR_ITS ---
[facility] [place] [address] Patient Name: AMOS RIOS MRN: [id number] date: 2000 Sex: F Assigned Patient Location: [facility] Current Patient Location: [facility] Accession/Order Number: [id number] Exam Date: 04/14/2025 16:18 Report Date: 04/14/2025 20:24 At the request of: DAVIS BRANCH MD Procedure: XR knee LT 4V 4 views left knee INDICATION: Left knee pain FINDINGS: No fracture dislocation identified. Joint spaces preserved. Soft tissues unremarkable. XR/XR knee LT 4V IMPRESSION: Negative acute osseous abnormality. Impression dictated by: Blayne Calhoun M.D. 04/14/2025 8:24 PM Dictation Location: [place] [address] Electronically authenticated by: [id number] Y Date: 04/14/2025 20:24
--- OUTSIDE RECORDS SUMMARY | 2025-04-14 16:18 | XMS_ITS | CCD ---
Author Organization [facility] Care Team Providers Care Construction Executive Name Role Phone Triny Guerra Unavailable DR [...] Unavailable Joaquín Branch MD Primary Care Provider [phone] JOAQUÍN BRANCH Attending Unavailable JOSE CARLOS, JOAQUÍN Attending Unavailable JOSE CARLOS, JOAQUÍN Attending Unavailable CHANDA BERNAL Attending Unavailable JOSE CARLOS, JOAQUNÍ Attending Unavailable Allergies Allergy Classification Reported Allergen(s) Allergy Type Date of Onset Reaction(s) Facility (11 sources) Gluten Propensity to adverse reactions 3 [facility] Work Phone: (11 sources) Prednisone Propensity to adverse reactions 3 [facility] Healthcare (11 sources) Witch Darlene Drug Allergy 3 [facility] Medications Current Medications Medication Drug Class(es) Dates Sig (Normalized) Sig (Original) [id number] 200 actuat albuterol 0.09 mg/actuat metered dose [...] 50 Tacho/mcL [facility] Clarity, UA Cloudy [facility] B[place]reeny re Color, UA Stone [facility] Braintreecar e Glucose, UA Positive Negative - 1999(110) ++++ mg/dL [facility] Interpretation and review of laboratory results Abnormal [facility] [place]reen[place] re Ketones, UA Negative Negative - 160(16) ++++ mg/dL [facility] Leukocytes, UA Negative Negative - 500+++ Carie/mcL [facility] Nitrite, UA Negative Negative - Positive [facility] pH, UA 5.5 5 - 9 [facility] Buzzoo e Protein, UA 3+ Negative - 1999(20) ++++ mg/dL [facility] Spec Grav, UA 1.03 1 - 1.[address] [facility] Urobilinogen, UA 0.2 0.2 - 12 mg/dL [facility] Buzzoo e IGP,APTIMA HPV,AGE GDLNon AGE GDLN ACOG TESTING Note . [facility] Comment on above: TESTS RESULT FLAG U NITS REF RANGE LAB Clinician Provided Cytology Information Source.............Cervix;Endocervix No. of containers..01 ThinPrep Vial Age Algo ACOG Clair... -05 08 FLAG LEGEND: L-Low Normal,H-High Normal,LL-Alert Low,HH-Alert High <-Panic Low,>-Panic High,A-Abnormal,AA-Critical Abnormal Performed at: 01 =G [address] [address] Mary Stone MD, IGP, RFX APTIMA HPV ASCU Note . [facility] Comment on above: TESTS RESULT FLAG UN ITS REF RANGE LAB DIAGNOSIS: 02 NEGATIVE FOR INTRAEPITHELIAL LESION OR MALIGNANCY. Specimen adequacy: 02 Satisfactory for evaluation. Endocervical and/or squamous metaplastic cells (endocervical component) are present. Performed by: 02 Deanna Clarke, Loss Control Consultant ([facility]) . 02 Note: Note 03 The Pap [...] High,A-Abnormal,AA-Critical Abnormal Performed at: 02 KWCYT [facility] [place] [facility] [address] [place] [phone] Indra Luna MD, 03 WB [facility] [place] [address] [place] [address] Mary Stone MD, Performed at: =G - [facility] [address], [place] [id number] Peoplesoft: Mary Stone MD, Phone: [phone] Performed at: [facility] [address] [place], [place] [id number] Peoplesoft: Indra Luna MD, Phone: [phone] [facility]USH[facility]SPATULA CERVIX ENDOCERVIX [facility] SARS/FLU A+B/RSV by NAAT/Mol [...] operators who are performing tests using either [employer] DX or GeneDirect[employer] systems and is limited to laboratories that [...] repeat. Fact Sheet for Healthcare Providers: https://www.fda.gov/ media/963365/downloa d Fact Sheet for Patients: https://www.fda.gov/ media/848612/downloa d Normal [facility] Comment on above: Performed By: #### C OVFLR #### [facility] ([id number]) [address] [place] [address] XR CHEST 1 VWon 07-14-2024 XR CHEST 1 VW XR CHEST 1 VW Single view chest History: Difficulty breathing, shortness of breath Comparison: None Impression: No acute pulmonary process. No pneumothorax or pleural effusion. Nonenlarged heart. Finalized by Bang Rossi MD on 07/14/2024 7:12 PM Normal [facility] CBC AND AUTO DIFFon 10-03-19 24 ABSOLUTE BASOPHIL 0.0 X10E9/L Normal 0.0-0.2 [facility] Comment on above: Performed By: #### C LINSEY [facility], 3040-3 #### [facility] ([id number]) [address] [place] [address] ABSOLUTE NEUTROPHIL 6.6 X10E9/L Normal 1.5-6.6 [facility] Comment on above: Performed By: #### C LINSEY [facility], 3040-3 #### [facility] ([id number]) [address] [place] [address] Basophils/100 WBC (Bld) 0.3 % [facility] Comment on above: Performed By: #### C MARCK STILES, 3040-3 #### [facility] ([id number]) [address] [place] [address] Eosinophils (Bld) [#/Vol] 0.1 10*3/uL Normal 0.0-0.4 [facility] Comment on above: Performed By: #### Corrie STILES CMP, 3 #### [facility] ([id number]) [address] [place] [address] Eosinophils/100 WBC (Bld) 1.4 % Normal [facility] Comment on above: Performed By: #### Corrie STILES CMP, 3 #### [facility] ([id number]) [address] [place] [address] Erythrocyte distribution width (RBC) [Ratio] 15.3 % High 11.5-15.0 [facility] Comment on above: Performed By: #### Corrie STILES CMP, 3039-09 #### [facility] ([id number]) [address] [place] [address]691 Hematocrit (Bld) [Volume fraction] 38.9 % Normal 35-47 [facility] Comment on above: Performed By: #### Corrie STILES CMP, 3039-09 #### [facility] ([id number]) [address] [place] [address]1201 Hemoglobin (Bld) [Mass/Vol] 12.8 g/dL Normal 11.7-15.5 [facility] Comment on above: Performed By: #### Corrie STILES CMP, 3 #### [facility] ([id number]) [address] [place] [address] 18432 Lymphocytes (Bld) [#/Vol] 1.3 10*3/uL Normal 1.0-3.5 [facility] Comment on above: Performed By: #### Corrie STILES CMP, 3 #### [facility] ([id number]) [address] [place] [address] 82375 Lymphocytes/100 WBC (Bld) 15.0 % Normal [facility] Comment on above: Performed By: #### Corrie STILES CMP, 3039- #### [facility] ([id number]) [address] [place] [address] 39840 MCH (RBC) [Entitic mass] 24.9 pg Low 27-34 [facility] Comment on above: Performed By: #### Corrie STILES, CMP, 3039- #### [facility] ([id number]) [address] [place] [address] 27052 MCHC (RBC) [Mass/Vol] 33.0 g/dL Normal 32-36 [facility] Comment on above: Performed By: #### Corrie STILES, CMP, 3039-09 #### [facility] ([id number]) [address] [place] [address] 29953 MCV (RBC) [Entitic vol] 76 fL Low 80-100 [facility] Comment on above: Performed By: #### Corrie STILES, CMP, 3039-09 #### [facility] ([id number]) [address] [place] [address] 42135 Monocytes (Bld) [#/Vol] 0.6 10*3/uL Normal 0-0.9 [facility] Comment on above: Performed By: #### Corrie STILES, CMP, 3039- #### [facility] ([id number]) [address] [place] [address] 54854 Monocytes/100 WBC (Bld) 6.6 % Normal [facility] Comment on above: Performed By: #### Corrie STILES, CMP, 3039-09 #### [facility] ([id number]) [address] [place] [address] 11428 Neutrophils/100 WBC (Bld) 76.7 % Normal [facility] Comment on above: Performed By: #### Corrie STILES, CMP, 3039-3 #### [facility] ([id number]) [address] [place] [address] 61590 Platelet mean volume (Bld) [Entitic vol] 8.6 fL Normal 7-12 [facility] Comment on above: Performed By: #### Corrie STILES CMP, 0-3 #### [facility] ([id number]) [address] [place] [address] 75829 Platelets (Bld) [#/Vol] 262 10*3/uL Normal 150-450 [facility] Comment on above: Performed By: #### Corrie STILES, CMP, 3039-3 #### [facility] ([id number]) [address] [place] [address] 94882 RBC COUNT 5.15 X10E12/L Normal 3.80-5.20 [facility] Comment on above: Performed By: #### Corrie STILES CMP, 3039-3 #### [facility] ([id number]) [address] [place] [address] 15832 WBC (Bld) [#/Vol] 8.6 10*3/uL Normal 4.0-11.0 [facility] Comment on above: Performed By: #### Corrie STILES, CMP, 3039-3 #### [facility] ([id number]) [address] [place] [address] 62660 COMPREHENSIVE METABOLIC PANE Harjit 10-03-2023 Albumin [Mass/Vol] 4.5 g/dL Normal 3.2-5.3 [facility] Comment on above: Performed By: #### Corrie STILES, CMP, 3039-3 #### [facility] ([id number]) [address] [place] [address] 71648 ALP [Catalytic activity/Vol] 66 U/L Normal 39-130 [facility] Comment on above: Performed By: #### Corrie BCA, CMP, 3039-3 #### [facility] ([id number]) [address] [place] [address] ALT [Catalytic activity/Vol] 13 U/L Normal 0-31 [facility] Comment on above: Performed By: #### C MARCK STILES, 3040-3 #### [facility] ([id number]) [address] [place] [address] 99498 Anion gap [Moles/Vol] 5 mmol/L Normal 5-15 [facility] Comment on above: Performed By: #### C MARCK STILES, 3039-3 #### [facility] ([id number]) [address] [place] [address] 40974 AST [Catalytic activity/Vol] 16 U/L Normal 0-41 [facility] Comment on above: Performed By: #### Corrie STILES CMP, 3039-3 #### [facility] ([id number]) [address] [place] [address] 87688 Bilirubin [Mass/Vol] 1.0 mg/dL Normal 0.3-1.2 [facility] Comment on above: Performed By: #### Corrie STILES CMP, 3039-3 #### [facility] ([id number]) [address] [place] [address] 51274 Calcium [Mass/Vol] 8.9 mg/dL Normal 8.5-10.5 [facility] Comment on above: Performed By: #### Corrie STILES CMP, 3039-3 #### [facility] ([id number]) [address] [place] [address] [place] [address] Chloride [Moles/Vol] 105 mmol/L Normal 98-109 [facility] Comment on above: Performed By: #### Corrie STILES CMP, 3039-3 #### [facility] ([id number]) [address] [place] [address] 53880 CO2 [Moles/Vol] 25 mmol/L Normal 22-32 [facility] Comment on above: Performed By: #### C LINSEY CMP, 3 #### [facility] ([id number]) [address] [place] [address] 40651 Creatinine [Mass/Vol] 0.83 mg/dL Normal 0.40-1.00 [facility] Comment on above: Result Comment: METH OD TRACEABLE TO IDMS STANDARD Performed By: #### C MARCK STILES, 3 #### [facility] ([id number]) [address] [place] [address] 85775 eGFR (CKD-EPI) NON-RACE DEPENDENT >90 Normal >59 [facility] Comment on above: Result Comment: Reported eGFR is based on the CKD-EPI 2020 equation that does not use a race coefficient. Performed By: #### C MARCK STILES, 3039-09 #### [facility] ([id number]) [address] [place] [address] 29963 Glucose [Mass/Vol] 88 mg/dL Normal 65-99 [facility] Comment on above: Performed By: #### C LINSEY [facility], 3039-09 #### [facility] ([id number]) [address] [place] [address] 24796 Potassium [Moles/Vol] 3.4 mmol/L Low 3.5-5.0 [facility] Comment on above: Performed By: #### C MARCK STILES, 3039-09 #### [facility] ([id number]) [address] [place] [address] 26842 Protein [Mass/Vol] 7.7 g/dL Normal 6.0-8.0 [facility] Comment on above: Performed By: #### C MARCK STILES, 3039-09 #### [facility] ([id number]) [address] [place] [address] 82169 Sodium [Moles/Vol] 135 mmol/L Normal 134-146 [facility] Comment on above: Performed By: #### C MARCK STILES, 3 #### [facility] ([id number]) [address] [place] [address] Urea nitrogen [Mass/Vol] 11 mg/dL Normal 5-23 [facility] Comment on above: Performed By: #### C MARCK STILES, 3040-3 #### [facility] ([id number]) [address] [place] [address] 18400 HCG ( test) Ql (U)o n 10-03-2023 Beta HCG ( test) Ql (U) Negative Normal NEG [facility] Comment on above: Performed By: #### 2 106-3 #### [facility] ([id number]) [address] [place] [address] 74412 LIPASEon 10-03-2023 Lipase [Catalytic activity/Vol] 25 U/L Normal 17-40 [facility] Comment on above: Performed By: #### C LINSEY [facility], 3040-3 #### [facility] ([id number]) [address] [place] [address] 00129 SARS/FLU A+B/RSV by NAAT/Mol ecularon 10-03-2023 SARS/FLU [...] operators who are performing tests using either [employer] or [employer]com systems and is limited to laboratories that [...] repeat. Fact Sheet for Healthcare Providers: https://www.fda.gov/ media/299325/downloa d Fact Sheet for Patients: https://www.fda.gov/ media/254445/downloa d Normal [facility] Comment on above: Performed By: #### C OVFLR #### [facility] ([id number]) [address] [place] [address] 38951 URN MACROSCOPIC NURon 2023 BILIRUBIN DAILY Small Abnormal NEG [facility] Comment on above: Performed By: #### N UM #### [facility] ([id number]) [address] [place] [address] 35675 BLOOD/HGB ADILY Trace Abnormal NEG [facility] Comment on above: Performed By: #### N UM #### [facility] ([id number]) [address] [place] [address] 88372 GLUCOSE DAILY Negative Normal NEG [facility] Comment on above: Performed By: #### N UM #### [facility] ([id number]) [address] [place] [address] 92500 KETONES DAILY Trace Abnormal NEG [facility] Comment on above: Performed By: #### N UM #### [facility] ([id number]) [address] [place] [address] 51057 LEUKOCYTE ESTERASE DAILY Negative Normal NEG [facility] Comment on above: Performed By: #### N UM #### [facility] ([id number]) [address] [place] [address] 27307 NITRITE DAILY Negative Normal NEG [facility] Comment on above: Performed By: #### N UM #### [facility] ([id number]) [address] [place] [address] 01320 PH DAILY 5.5 Normal 5.0-8.5 [facility] Comment on above: Performed By: #### N UM #### [facility] ([id number]) [address] [place] [address] 39527 PROTEIN DAILY Trace Abnormal NEG [facility] Comment on above: Performed By: #### N UM #### [facility] ([id number]) [address] [place] [address] 49030 SPECIFIC GRAVITY DAILY >=1.030 Normal 1.003-1.035 [facility] Comment on above: Performed By: #### N UM #### [facility] ([id number]) [address] [place] [address] 23825 UROBILINOGEN DAILY 0.2 eu/dL Normal <1.1 [facility] Comment on above: Performed By: #### N UM #### [facility] ([id number]) [address] [place] [address] 26791 Urinalysis - AUTOMATEDon Appearance (U) cloudy [email or web address] t [employer] Other Bilirubin Ql (U) Negative Freeze Tag Other Color (U) yellow [employer] Other Glucose Ql (U) Negative [employer] Other Hemoglobin Ql (U) Negative [employer] Other Ketones Ql (U) Negative [employer] Other Leukocyte esterase Test strip Ql (U) Small [employer] Other Nitrite Ql (U) Negative [employer] Other pH (U) 6.0 [pH] [employer] Other Protein Ql (U) Negative [employer] Other Specific gravity (U) [Rel density] 1.020 [employer] Other Urobilinogen (U) [Mass/Vol] 0.2 mg/dL [employer] Other Urinalysis - AUTOMATED [employer] Other Urine Cultureon 07-25-2022 Urine Culture 15,000 [employer] Other Bacteria identified Cx Nom (U) Reason for Exam Dysuria Urine ORGANISM: Yvette albicans (O:CANALB) [place] Count 15,000 PERFORMED BY: [place] [address] PATHOLOGIST REAGENT TENDER LETICIA VIRAMONTES M.D. Normal [facility] Comment on above: Performed By: #### V AGINITIS+ #### [facility] , #### CUU #### [place] [address] [place] Vaginitis Plus (VG+)on 07-25 Vaginitis Plus (VG+) Negative Negative [employer] Other Vaginitis Plus (VG+) Low - 0 . [employer] Other Vaginitis Plus (VG+) Positive Critically abnormal Negative [employer] Other Atopobium Vaginae Low - 0 Normal . [facility] Comment on above: Order Comment: Reaso n for Exam Dysuria Performed By: #### V AGINITIS+ #### [facility] , #### CUU #### [facility] [address] [place] [address] BVAB2 Low - 0 Normal . [facility] Comment on above: Order Comment: Reaso n for Exam Dysuria Performed By: #### V AGINITIS+ #### [facility] , #### CUU #### [address] Yvette Albicans, MADISYN Positive Critically abnormal Negative [facility] Comment on above: Order Comment: Reaso n for Exam Dysuria Result Comment: This test was developed and its performance characteristics determined by [facility]. It has not been cleared or approved by the Food and Drug Administration. Performed By: #### V AGINITIS+ #### [facility] , #### CUU #### [address] Yvette Glabrata, MADISYN Negative Normal Negative [facility] Comment on above: Order Comment: Reaso n for Exam Dysuria Result Comment: This test was developed and its performance characteristics determined by [facility]. It has not been cleared or approved by the Food and Drug Administration. PERFORMED BY: [place] [address] PATHOLOGIST REAGENT TENDER LETICIA VIRAMONTES M.D. Performed By: #### V AGINITIS+ #### [facility] , #### CUU #### [address] Chlamydia Trachomotis, MADISYN Negative Normal Negative [facility] Comment on above: Order Comment: Reaso n for Exam Dysuria Performed By: #### V AGINITIS+ #### [facility] , #### CUU #### [facility] [address] [place] [address] [place] Megasphaera Low - 0 Normal . [facility] Comment on above: Order Comment: Reaso n [...] AGINITIS+ #### [facility] , #### CUU #### [address] Neisseria Gonorrhoeae, MADISYN Negative Normal Negative [facility] Comment on above: Order Comment: Reaso n for Exam Dysuria Result Comment: Perf ormed at: =G - [facility] [address] [id number] Peoplesoft: Mary Stone MD, Phone: [phone] Performed By: #### V AGINITIS+ #### [facility] , #### CUU #### [facility] [address] [place] [address] Tric Vag MADISYN Negative Normal Negative [facility] Comment on above: Order Comment: Reaso n for Exam Dysuria Performed By: #### V AGINITIS+ #### [facility] , #### CUU #### [address] MARGARET by IFAon 06-16-2022 Antinuclear Antibodies, IFA Negative Normal [facility] Comment on above: Result Comment: Nega tive <1:80 Borderline 1:80 Positive >1:80 ICAP nomenclature: AC-0 For more information about Hep-2 cell patterns use ANApatterns.org, the official website for the International Consensus on Antinuclear Antibody (MARGARET) Patterns (ICAP). Performed By: #### A NAIFA #### [facility] [address] [place] [address] Dr. Meghna Lugo RHEUMATOID FACTORon 06-14-20 RA Latex Turbid. <10.0 Normal <14.0 [facility] Comment on above: Performed By: #### R F #### [facility] [address] [place] [address] Dr. Meghna Lugo CBC AUTO DIFFon 06-12-2022 BASO # 0.0 103/ul Normal 0.0-0.1 [facility] Comment on above: Performed By: #### C BC #### [facility] [address] [place] [address] Dr. Meghna Lugo Basophils/100 WBC (Bld) 0.6 % Normal 0.2-2.0 [facility] Comment on above: Performed By: #### C BC #### [facility] [address] [place] [address] Dr. Meghna Lugo EO # 0.1 103/ul Normal 0.0-0.7 [facility] Comment on above: Performed By: #### C BC #### [facility] [address] [place] [address] Dr. Meghna Lugo Eosinophils/100 WBC (Bld) 0.7 % Critically low 0.9-7.0 [facility] Comment on above: Performed By: #### C BC #### [facility] [address] [place] [address] Dr. Meghna Lugo Erythrocyte distribution width (RBC) [Ratio] 13.3 % Normal 11.0-15.0 [facility] Comment on above: Performed By: #### C BC #### [facility] [address] [place] [address] Dr. Meghna Lugo Hematocrit (Bld) [Volume fraction] 39.1 % Normal 36.0-48.0 [facility] Comment on above: Performed By: #### C BC #### [facility] [address] [place] [address] Dr. Meghna Lugo Hemoglobin (Bld) [Mass/Vol] 12.9 g/dL Normal 12.0-16.0 [facility] Comment on above: Performed By: #### C BC #### [facility] [address] [place] [address] Dr. Meghna Lugo IG # 0.02 10e3/ul Normal 0.00-0.03 [facility] Comment on above: Performed By: #### C BC #### [facility] [address] [place] [address] Dr. Meghna Lugo IG % 0.3 % Normal 0.0-0.5 [facility] Comment on above: Performed By: #### C BC #### [facility] [address] [place] [address] Dr. Meghna Lugo LYMPH # 1.6 103/ul Normal 1.2-3.8 [facility] Comment on above: Performed By: #### C BC #### [facility] [address] [place] [address] Dr. Meghna Lugo Lymphocytes/100 WBC (Bld) 21.7 % Normal 20.5-60.0 [facility] Comment on above: Performed By: #### C BC #### [facility] [address] [place] [address] Dr. Meghna Lugo MANUAL DIFF REQ NO Normal [facility] Comment on above: Performed By: #### C BC #### [facility] [address] [place] [address] Dr. Meghna Lugo MCH (RBC) [Entitic mass] 27.4 pg Normal 26.7-34.0 [facility] Comment on above: Performed By: #### C BC #### [facility] [address] [place] [address] Dr. Meghna Lugo MCHC (RBC) [Mass/Vol] 33.0 g/dL Normal 29.9-35.2 [facility] Comment on above: Performed By: #### C BC #### [facility] [address] [place] [address] Dr. Meghna Lugo MCV (RBC) [Entitic vol] 83.2 fL Normal 81.0-99.0 [facility] Comment on above: Performed By: #### C BC #### [facility] [address] [place] [address] Dr. Meghna Lugo MONO # 0.4 103/ul Normal 0.3-0.8 [facility] Comment on above: Performed By: #### C BC #### [facility] [address] [place] [address] Dr. Meghna Lugo Monocytes/100 WBC (Bld) 5.6 % Normal 1.7-12.0 [facility] Comment on above: Performed By: #### C BC #### [facility] [address] [place] [address] Dr. Meghna Lugo NEUT # 5.1 103/ul Normal 1.4-6.5 [facility] Comment on above: Performed By: #### C BC #### [facility] [address] [place] [address] Dr. Meghna Lugo Neutrophils/100 WBC (Bld) 71.1 % Normal 43.0-75.0 [facility] Comment on above: Performed By: #### C BC #### [facility] [address] [place] [address] Dr. Meghna Lugo Platelet mean volume (Bld) [Entitic vol] 10.4 fL Normal 9.5-13.5 [facility] Comment on above: Performed By: #### C BC #### [facility] [address] [place] [address] Dr. Meghna Lugo PLT 266 103/ul Normal 150-450 [facility] Comment on above: Performed By: #### C BC #### [facility] [address] [place] [address] Dr. Meghna Lugo RBC 4.70 106/ul Normal 4.20-5.40 [facility] Comment on above: Performed By: #### C BC #### [facility] [address] [place] [address] Dr. Meghna Lugo WBC 7.2 103/ul Normal 4.0-11.0 [facility] Comment on above: Performed By: #### C BC #### [facility] [address] [address] [address] Meghna Lugo CRPon 06-12-2022 CRP [Mass/Vol] mg/L Normal <=1.0 [facility] Comment on above: Performed By: #### T SH, BMP, LIVER, CRP, LIPID #### [facility] [address] [address] [address] Meghna Lugo GLYCOHEMOGLOBIN A1Con 2021 ADA RECOMMENDATION SEE BELOW Normal [facility] Comment on above: Result Comment: ADA RECOMMENDED LIMIT 4.0 - 6.0 ADA THERAPEUTIC TARGET < 7.0 ACTION SUGGESTED > 7.0 Performed By: #### A 1C #### [facility] [address] [place] [address] Dr. Meghna Lugo Glucose [Mass/Vol] 97 mg/dL Normal [facility] Comment on above: Performed By: #### A 1C #### [facility] [address] [place] [address] Dr. Meghna Lugo HbA1c (Bld) [Mass fraction] 5.0 % Normal 4.5-6.2 [facility] Comment on above: Performed By: #### A 1C #### [facility] [address] [place] [address] Dr. Meghna Lugo LIPID PROFILEon 06-12-2022 CHOL-HDL RATIO NORM SEE BELOW Normal [facility] Comment on above: Result Comment: 3.3 - 4.4 LOW RISK 4.4 - 7.1 AVERAGE RISK 7.1 - 11.0 MODERATE RISK >11.0 HIGH RISK Performed By: #### T SH, BMP, LIVER, CRP, LIPID #### [facility] [address] [place] [address] Dr. Meghna Lugo Cholesterol [Mass/Vol] 121 mg/dL Normal <=200 [facility] Comment on above: Performed By: #### T SH, BMP, LIVER, CRP, LIPID #### [facility] [address] [place] [address] Dr. Meghna Lugo Cholesterol in HDL [Mass/Vol] 68 mg/dL Critically high 40-60 [facility] Comment on above: Performed By: #### T SH, BMP, LIVER, CRP, LIPID #### [facility] [address] [address] [address] Meghna Lugo Cholesterol in LDL [Mass/Vol] 36.8 mg/dL Normal [facility] Comment on above: Performed By: #### T SH, BMP, LIVER, CRP, LIPID #### [facility] [address] [address] [address] Meghna Lugo Cholesterol.total/C holesterol in HDL [Mass ratio] 1.8 {ratio} Normal [facility] Comment on above: Performed By: #### T SH, BMP, LIVER, CRP, LIPID #### [facility] [address] [address] [address] Meghna Lugo HDL NORMAL > or = 60 mg/dl - LOW CARDIOVASCULAR RISK <40 mg/dl - HIGH CARDIOVASCULAR RISK Normal [facility] Comment on above: Performed By: #### T SH, BMP, LIVER, CRP, LIPID #### [facility] [address] [address] [address] Meghna Lugo LDL CALC NORMAL SEE BELOW Normal [facility] Comment on above: Result Comment: <100 mg/dl OPTIMAL 100 - 129 mg/dl NEAR OR ABOVE OPTIMAL 130 - 159 mg/dl BORDERLINE HIGH 160 - 189 mg/dl HIGH >190 mg/dl VERY HIGH Performed By: #### T SH, BMP, LIVER, CRP, LIPID #### [facility] [address] [address] [address] Meghna Lugo Triglyceride [Mass/Vol] 81 mg/dL Normal <=150 [facility] Comment on above: Performed By: #### T SH, BMP, LIVER, CRP, LIPID #### [facility] [address] [address] [address] Meghna Lugo VLDL CALC 16.2 mg/dL Normal [facility] Comment on above: Performed By: #### T SH, BMP, LIVER, CRP, LIPID #### [facility] [address] [address] [address] Meghna Lugo LIVER PROFILEon 06-12-2022 Albumin [Mass/Vol] 4.2 g/dL Normal 3.4-5.0 [facility] Comment on above: Performed By: #### T SH, BMP, LIVER, CRP, LIPID #### [facility] [address] [place] [address] Dr. Meghna Lugo Albumin/Globulin [Mass ratio] 1.2 {ratio} Normal [facility] Comment on above: Performed By: #### T SH, BMP, LIVER, CRP, LIPID #### [facility] [address] [place] [address] Dr. Meghna Lugo ALP [Catalytic activity/Vol] 79 U/L Normal 46-116 [facility] Comment on above: Performed By: #### T SH, BMP, LIVER, CRP, LIPID #### [facility] [address] [place] [address] Dr. Meghna Lugo ALT [Catalytic activity/Vol] 9 U/L Critically low 14-59 [facility] Comment on above: Performed By: #### T SH, BMP, LIVER, CRP, LIPID #### [facility] [address] [place] [address] Dr. Meghna Lugo AST [Catalytic activity/Vol] 7 U/L Critically low 15-37 [facility] Comment on above: Performed By: #### T SH, BMP, LIVER, CRP, LIPID #### [facility] [address] [place] [address] Dr. Meghna Lugo BILI, CONJUGATED 0.2 mg/dL Normal 0.0-0.2 [facility] Comment on above: Performed By: #### T SH, BMP, LIVER, CRP, LIPID #### [facility] [address] [place] [address] Dr. Meghna Lugo Bilirubin [Mass/Vol] 0.7 mg/dL Normal 0.2-1.0 [facility] Comment on above: Performed By: #### T SH, BMP, LIVER, CRP, LIPID #### [facility] [address] [place] [address] Dr. Meghna Lugo Globulin (S) [Mass/Vol] 3.5 g/dL Normal [facility] Comment on above: Performed By: #### T SH, BMP, LIVER, CRP, LIPID #### [facility] [address] [place] [address] Dr. Meghna Lugo Protein [Mass/Vol] 7.7 g/dL Normal 6.4-8.2 [facility] Comment on above: Performed By: #### T SH, BMP, LIVER, CRP, LIPID #### [facility] [address] [place] [address] Dr. Meghna Lugo PROF CHEM 8 (BAS METB)on Anion gap [Moles/Vol] 10.6 mmol/L Normal [facility] Comment on above: Performed By: #### T SH, BMP, LIVER, CRP, LIPID #### [facility] [address] [place] [address] Dr. Meghna Lugo Calcium [Mass/Vol] 9.2 mg/dL Normal 8.5-10.1 [facility] Comment on above: Performed By: #### T SH, BMP, LIVER, CRP, LIPID #### [facility] [address] [place] [address] Dr. Meghna Lugo Chloride [Moles/Vol] 102 mmol/L Normal 98-107 [facility] Comment on above: Performed By: #### T SH, BMP, LIVER, CRP, LIPID #### [facility] [address] [place] [address] Dr. Meghna Lugo CO2 [Moles/Vol] 28.9 mmol/L Normal 21.0-32.0 [facility] Comment on above: Performed By: #### T SH, BMP, LIVER, CRP, LIPID #### [facility] [address] [place] [address] Dr. Meghna Lugo Creatinine [Mass/Vol] 0.88 mg/dL Normal 0.55-1.02 [facility] Comment on above: Performed By: #### T SH, BMP, LIVER, CRP, LIPID #### [facility] [address] [place] [address] Dr. Meghna Lugo EGFR-AF DUTCH >60 Normal >=60 [facility] Comment on above: Performed By: #### T SH, BMP, LIVER, CRP, LIPID #### [facility] [address] [address] [address] Meghna Lugo EGFR-NON AF DUTCH >60 Normal >=60 [facility] Comment on above: Performed By: #### T SH, BMP, LIVER, CRP, LIPID #### [facility] [address] [address] [address] Meghna Lugo Glucose [Mass/Vol] 101 mg/dL Normal 74-106 [facility] Comment on above: Performed By: #### T SH, BMP, LIVER, CRP, LIPID #### [facility] [address] [address] [address] Meghna Lugo Potassium [Moles/Vol] 3.5 mmol/L Normal 3.5-5.1 [facility] Comment on above: Performed By: #### T SH, BMP, LIVER, CRP, LIPID #### [facility] [address] [place] [address] Dr. Meghna Lugo Sodium [Moles/Vol] 138 mmol/L Normal 136-145 [facility] Comment on above: Performed By: #### T SH, BMP, LIVER, CRP, LIPID #### [facility] [address] [address] [address] Meghna Lugo Urea nitrogen [Mass/Vol] 13.0 mg/dL Normal 7.0-18.0 [facility] Comment on above: Performed By: #### T SH, BMP, LIVER, CRP, LIPID #### [facility] [address] [address] [address] Meghna Lugo Urea nitrogen/Creatinine [Mass ratio] 14.8 mg/mg Normal [facility] Comment on above: Performed By: #### T SH, BMP, LIVER, CRP, LIPID #### [facility] [address] [place] [address] Dr. Meghna Lugo SED [facility] SED RATE 7 mm/hr Normal <=20 [facility] Comment on above: Performed By: #### S EDR #### [facility] [address] [place] [address] Dr. Meghna Lugo TSHon 06-12-2022 TSH 0.529 uIU/mL Normal 0.358-3.740 [facility] Comment on above: Performed By: #### T SH, BMP, LIVER, CRP, LIPID #### [facility] [address] [address] [address] Meghna Lugo COVID/FLU RT-PCRon SARS-CoV-2 (COVID-19) RNA MADISYN+probe Ql (Unsp spec) Positive [employer] Other COVID/FLU RT-PCR Negative [employer] Other Quick Strepon 04-17-2022 S. pyogenes Org specific cx Ql (Throat) Negative [employer] Other Urinalysis - AUTOMATEDon Appearance (U) clear [employer] Other Bilirubin Ql (U) Negative [employer] Other Color (U) yellow [employer] Other Glucose Ql (U) Negative [employer] Other Hemoglobin Ql (U) Negative [employer] Other Ketones Ql (U) Negative [employer] Other Leukocyte esterase Test strip Ql (U) Negative [employer] Other Nitrite Ql (U) Negative [employer] Other pH (U) 8.0 [pH] [employer] Other Protein Ql (U) Negative [employer] Other Specific gravity (U) [Rel density] 1.025 [employer] Other Urobilinogen (U) [Mass/Vol] 0.20 mg/dL [employer] Other Urinalysis - AUTOMATED [employer] Other Vital Signs Date Time Vital Sign Value Performing Clinician Facility 08-25-2024 15:08-0500 Body height 170.2 cm Joaquín Branch MD Work Phone: [facility] 08-25-2024 15:08-0500 Body mass index (BMI) [Ratio] 28.35 kg/m2 Joaquín Branch MD Work Phone: [facility] 08-25-2024 15:08-0500 Body temperature 97.81 [degF] Joaquín Branch MD Work Phone: [facility] 08-25-2024 15:08-0500 Body weight 82.1 kg Joaquín Branch MD Work Phone: [facility] 08-25-2024 15:08-0500 Diastolic blood pressure 56 mm[Hg] Joaquín Branch MD Work Phone: [facility] 08-25-2024 15:08-0500 Heart rate 91 /min Joaquín Branch MD Work Phone: [facility] 08-25-2024 15:08-0500 Respiratory rate 22 /min Joaquín Branch MD Work Phone: [facility] 08-25-2024 15:08-0500 SaO2% (BldA) [Mass fraction] 99 % Joaquín Branch MD Work Phone: [facility] 08-25-2024 15:08-0500 Systolic blood pressure 108 mm[Hg] Joaquín Branch MD Work Phone: [facility] 07-30-2024 10:23-0500 Body height 170.2 cm Joaquín Branch MD Work Phone: [facility] 07-30-2024 10:23-0500 Body mass index (BMI) [Ratio] 28.04 kg/m2 Joaquín Branch MD Work Phone: [facility] 07-30-2024 10:23-0500 Body temperature 97.3 [degF] Joaquín Branch MD Work Phone: [facility] 07-30-2024 10:23-0500 Body weight 81.19 kg Joaquín Branch MD Work Phone: [facility] 07-30-2024 10:23-0500 Diastolic blood pressure 58 mm[Hg] Joaquín Branch MD Work Phone: [facility] 07-30-2024 10:23-0500 Heart rate 104 /min Joaquín Branch MD Work Phone: [facility] 07-30-2024 10:23-0500 Respiratory rate 20 /min Joaquín Branch MD Work Phone: [facility] 07-30-2024 10:23-0500 SaO2% (BldA) [Mass fraction] 98 % Joaquín Branch MD Work Phone: [facility] 07-30-2024 10:23-0500 Systolic blood pressure 100 mm[Hg] Joaquín Branch MD Work Phone: [facility] 07-27-2024 14:01-0500 Body height 170.2 cm Joaquín Branch MD Work Phone: [facility] 07-27-2024 14:01-0500 Body mass index (BMI) [Ratio] 28.47 kg/m2 Joaquín Branch MD Work Phone: [facility] 07-27-2024 14:01-0500 Body temperature 97.7 [degF] Joaquín Branch MD Work Phone: [facility] 07-27-2024 14:01-0500 Body weight 82.46 kg Joaquín Branch MD Work Phone: [facility] 07-27-2024 14:01-0500 Diastolic blood pressure 68 mm[Hg] Joaquín Branch MD Work Phone: [facility] 07-27-2024 14:01-0500 Heart rate 123 /min Joaquín Branch MD Work Phone: [facility] 07-27-2024 14:01-0500 Respiratory rate 18 /min Joaquín Branch MD Work Phone: [facility] 07-27-2024 14:01-0500 SaO2% (BldA) [Mass fraction] 97 % Joaquín Branch MD Work Phone: [facility] 07-27-2024 14:01-0500 Systolic blood pressure 126 mm[Hg] Joaquín Branch MD Work Phone: [facility] 07-03-2023 17:45-0500 Body height 170.18 cm Lorraine Shira Other [employer] Other 07-03-2023 17:45-0500 Body mass index (BMI) [Ratio] 23.96 kg/m2 Lorraine Shira Other [employer] Other 07-03-2023 17:45-0500 Body temperature 97.3 [degF] Lorraine Shira Other [employer] Other 07-03-2023 17:45-0500 Body weight 69.4 kg Lorraine Shira Other [employer] Other 07-03-2023 17:45-0500 Respiratory rate 18 /min Lorraine Shira Other [employer] Other 07-03-2023 17:45-0500 SaO2% (BldA) [Mass fraction] 98 % Lorraine Shira Other [employer] Other 06-06-2023 11:20-0500 Body height 170.18 cm Lorraine Shira Other [employer] Other 06-06-2023 11:20-0500 Body mass index (BMI) [Ratio] 19.73 kg/m2 Lorraine Shira Other [employer] Other 06-06-2023 11:20-0500 Body temperature 98.5 [degF] Lorraine Shira Other [employer] Other 06-06-2023 11:20-0500 Body weight 57.15 kg Lorraine Shira Other [employer] Other 06-06-2023 11:20-0500 Respiratory rate 21 /min Lorraine Shira Other [employer] Other 06-06-2023 11:20-0500 SaO2% (BldA) [Mass fraction] 97 % Lorraine Shira Other [employer] Other 07-25-2022 11:00-0500 Body height 170.18 cm Triny Gaymond Other [employer] Other 07-25-2022 11:00-0500 Body mass index (BMI) [Ratio] 23.49 kg/m2 Triny Gaymond Other [employer] Other 07-25-2022 11:00-0500 Body temperature 97.6 [degF] Triny Gaymond Other [employer] Other 07-25-2022 11:00-0500 Body weight 68.04 kg Triny Gaymond Other [employer] Other 07-25-2022 11:00-0500 Diastolic blood pressure 68 mm[Hg] Triny Gaymond Other [employer] Other 07-25-2022 11:00-0500 Respiratory rate 18 /min Triny Mari Other [employer] Other 07-25-2022 11:00-0500 SaO2% (BldA) [Mass fraction] 100 % Triny Guerra Other [employer] Other 07-25-2022 11:00-0500 Systolic blood pressure 97 mm[Hg] Triny Guerra Other [employer] Other 04-17-2022 12:05-0400 Body height 170.18 cm Triny Guerra Other [employer] Other 04-17-2022 12:05-0400 Body mass index (BMI) [Ratio] 24.27 kg/m2 Triny Guerra Other [employer] Other 04-17-2022 12:05-0400 Body temperature 101 [degF] Triny Guerra Other [employer] Other 04-17-2022 12:05-0400 Body weight 70.31 kg Triny Guerra Other [employer] Other 04-17-2022 12:05-0400 Respiratory rate 18 /min Triny Guerra Other [employer] Other 04-17-2022 12:05-0400 SaO2% (BldA) [Mass fraction] 99 % Triny Guerra Other [employer] Other Encounters Encounter Date Encounter Type Care [...] Dx); Mild intermittent asthma, unspecified whether complicated ([facility] Start: 07-27-2024 End: 07-27-2024 ambulatory JOAQUÍN BRANCH [...] End: 07-14-2024 Emergency department patient visit JOAQUÍN [facility] Start: 10-22-2023 End: 10-22-2023 ambulatory JOAQUÍN JOSE CARLOS Not Available Start: 10-03-2023 End: 10-03-2023 Emergency department patient visit [facility] Start: 07-03-2023 End: 07-03-2023 ambulatory Lorraine Shira Other [employer] Other Start: 07-03-2023 Office outpatient vi sit 15 minutes Lorraine Shira [facility] Start: 06-06-2023 End: 06-06-2023 ambulatory Lorraine Shira Other [employer] Other Start: 06-06-2023 Office outpatient vi sit 15 minutes Lorraine Shira [facility] Start: 07-27-2022 End: 07-27-2022 ambulatory Triny Guerra Other [employer] Other Start: 07-27-2022 Telephone encounter Triny Guerra [facility] Start: 07-25-2022 Office outpatient vi sit 15 minutes Triny Guerra [facility] Start: 07-25-2022 End: 07-25-2022 ambulatory Triny Guerra Facility:[facility] Start: 07-25-2022 End: 07-25-2022 ambulatory MD Joaquín Branch Work Phone: [facility] Work Phone: Start: 07-25-2022 End: 07-25-2022 Departed Referred MD Joaquín Branch Work Phone: [facility] Work Phone: Start: 06-16-2022 Encounter for genera l adult medical examination without abnormal findings DR JOAQUÍN BRANCH [facility] Start: 06-12-2022 End: 06-13-[address] JOAQUÍN BRANCH Facility:[facility] Start: 06-12-2022 End: 06-13-2022 Encounter for general adult medical examination without abnormal findings DR JOAQUÍN BRANCH Facility:[facility] Start: 04-17-2022 End: 04-17-2022 ambulatory Triny Guerra Other [employer] Other Start: 04-17-2022 Office outpatient vi sit [...] Office Visit [facility] [address] [place] [id number] Chanda Bernal, [address] [place] [address] [facility] Start: 07-30-2024 End: 07-30-2025 URINARY TRACT INFECTION (HTRX) URINARY TRACT INFECTION (HTRX) Lab Routine Acute UTI Expected: 07/30/2024 (Approximate), Expires: 07/30/2025 [facility] Work Phone: Comment on above: Expected: 07/30/2024 (Approximate), Expires: 07/30/2025 Start: 07-30-2024 End: 07-30-2024 Patient encounter procedure 07/30/2024 10:15 AM EST [facility] [address] [place] [address] Joaquín Branch MD [address] [place] [address] Arrived [facility] Comment on above: Arrived Start: 07-27-2024 End: 07-27-2024 Patient encounter procedure [facility] Comment on above: Arrived Start: 03-08-2024 Influenza vaccination Influenz a Vaccine (#1) [facility] Start: 07-25-2022 Bacteria identified in Urine by Culture [facility] Atopobium vaginae DN A [Presence] in Vaginal fluid by MADISYN with probe detection [facility] Bacterial vaginosis associated bacterium 2 DNA [Presence] in Vaginal fluid by MADISYN with probe detection [facility] Megasphaera sp type 1 DNA [Presence] in Vaginal fluid by MADISYN with probe detection [facility] Payers Date Payer Category Payer [facility] [id number] 2022 [facility] [id number] 2022 Medicaid [id number] 2022 Self-pay [id number] 2022 Unknown [id number] 2000 Unknown [id number] [id number]. [id number] 2000 Unknown [id number] [id number]. 2.1286 2000 Unknown [id number] [id number]. 2.1286 2000 Unknown [id number] [id number]. 2.1259 2000 Unknown [id number] [id number]. 2.1259 2000 Unknown [id number] [id number]. 2.1259 2000 Unknown [id number] [id number]. 2.1259 2000 Unknown [id number] [id number]. 2.1259 1959 Unknown [id number] [facility] [id number] Unknown [id number]. 2.531 Social History Date Type Detail Facility Unknown if ever smoked [employer] Other Start: 10-22-2023 End: 08-25-2024 Sex Assigned At [employer] Other Start: 2000 Sex Assigned At Female F [facility] Start: 10-22-2023 Tobacco smoking status NHIS Never smoked tobacco [facility] Start: 10-22-2023 Tobacco use and exposure Smokeless tobacco non-user [facility] Start: 10-22-2023 End: 08-25-2024 History of Social function [facility] Start: 2000 Sex assigned at Not on file N [facility] Clinical Notes 04-17-2022 to 08-25-2024 Joaquín [...] Subjective Patient ID: Mary Kearns is a 24 y.o. female who presents [...] 10 MG tablet documented in this encounter [facility] 07-30-2024 History of Presen t illness Narrative [...] Urinalysis dipstick (Completed) documented in this encounter [facility] 07-27-2024 History of Presen t illness Narrative [...] Diagnoses Mild intermittent asthma, unspecified whether complicated ([facility]) Relevant Medications albuterol HFA 90 mcg/act inhaler documented in this encounter [facility] 07-03-2023 Evaluation note Encounter Date Diagnosis Assessment [...] unspecified chronicity, unspecified location (ICD-10 - J32.9) [employer] Other 11-30-2023 Evaluation note* Encounter Date Diagnosis [...] you need to go to the ER. [employer] Other 01-18-2023 Evaluation note* Encounter Date Diagnosis Assessment Notes Treatment Notes Treatment Clinical Notes Jul, Dysuria (ICD-10 - R30.0) Jul, Vaginal discharge (ICD-10 - N89.8) Vaginal discharge home care material was printed Drink plenty fluids, get plenty of rest. Take the Diflucan as prescribed until gone. We will notify you of your culture results. No intercourse for 2 weeks. Always use condom [employer] Other 10-11-2022 Evaluation note* Encounter Date Diagnosis [...] 3 days. Apr, Dysuria (ICD-10 - R30.0) [employer] Other Evaluation noteNo assessment information available [facility] Work Phone: Evalugskwv noteNo InformationNort [employer] Other Evaluation note* Diagnosis Viral gastroenteritis- Primary Intestinal infection due to other organism, NEC Gastroesophageal reflux disease without esophagitis Esophageal reflux Disorder of both eustachian tubes Right ear impacted cerumen Impacted cerumen Right foot pain Pain in soft tissues of limb Acute bronchitis due to other specified organisms- Primary Mild intermittent asthma, unspecified whether complicated ([facility] documented in this encounter [facility]* [...] History severe abdominal and marcelle st pain [employer] [facility] [employer] Other History general Narrative - Reported* Type Description Date Medical History celiac sprue Medical History GERD Surgical History Ear tubes Surgical History Tonsillectomy Surgical History wisdom teeth Surgical History adnoidectomy Surgical History EGD Hospitalization History severe abdominal and marcelle st pain [employer] [facility] [employer] Other Summary Purpose Family History No Family [...] and content) DATE CREATED AUTHOR 06/16/2022 [facility] DATE CREATED AUTHOR AUTHOR'S ORGANIZ ATION 07/31/2022 [facility] DATE CREATED AUTHOR AUTHOR'S ORGANIZ ATION 07/20/2024 [facility] DATE CREATED AUTHOR AUTHOR'S ORGANIZ ATION 08/27/2024 [facility] [employer] Care Teams (unrecognized sec tion and content) Team Status: Inactive Member Role Status Dates Joaquín Branch MD Primary Care Provider Active ERVIN Lopez Attending Provider Active Team Status: Active Member Role Status Dates Joaquín Branch MD Primary Care Provider Active Construction Executive Relationship Specialty Start Date End Date Joaquín Branch MD [address] [place] [address] PCP - General Family Medicine 10/22/23 Construction Executive Relationship Specialty Start Date End Date Joaquín Branch MD [address] [place] [address] PCP - General Family [facility] 10/22/23 Construction Executive Relationship Specialty Start Date End Date Joaquín Branch MD [address] [place] [address] PCP [facility] 10/22/23 Construction Executive Relationship Specialty Start Date End Date Joaquín Branch MD [address] [place] [address] PCP - [facility] 10/22/23 Construction Executive Relationship Specialty Start Date End Date Joaquín Branch MD [address] [place] [address] PCP [facility] 10/22/23 Construction Executive Relationship Specialty Start Date End Date Joaquín Branch MD [address] [place] [address] PCP - [facility] 10/22/23 Construction Executive Relationship Specialty Start Date End Date Joaquín Branch MD [address] [place] [address] PCP [facility] 10/22/23 Construction Executive Relationship Specialty Start Date End Date Joaquín Branch MD [address] [place] [address] [facility] 10/22/23 Goals (unrecognized section and content) Goals [...] BE BASED ON THE PRIMARY CLINICAL RECORDS. [facility]. provides no warranty or guarantee of the accuracy or completeness of information in this document.
== END 2025-04-14 16:08 | disposition home or self-care (01) ==
LOC: RAD 16:08
PROVIDERS: PCP Family Medicine; Visit Provider Family Medicine
DX: M25.551 Pain in right hip (principal); M25.562 Pain in left knee
CPT/HCPCS: 73502; 73564

== ENCOUNTER 2025-07-06 16:39 | Outpatient (OUT) | payer BC, SELFPAY ==
--- OUTSIDE RECORDS SUMMARY | 2025-06-23 08:30 | XMS_ITS | Encounter Summary ---
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 Name Role Phone Joaquín Bruce MD Primary Care Provider [phone] Reason for Visit * ReasonCommentsContraception Encounter Details DateTypeDepartmentCare Team (Latest Contact Info)Uirfivnsodu71/17/2025 8:30 AM ESTOffice Visit [facility] [address] [place] [address] Kaylen Aragon PA [address] [place], [place] [id number] control counseling Social History Tobacco UseTypesPacks/DayYears UsedDateSmoking Tobacco: NeverSmokeless Tobacco: NeverCommentsUnknownSex and Gender InformationValueDate RecordedSex Assigned at BirthNot on fileLegal XnuPhaxti27/15/2023 7:21 PM EDTGender Identity Not on fileSexual OrientationNot on filedocumented as of this encounter Last Filed Vital Signs Vital SignReadingTime TakenCommentsBlood Svjsgnmm035/6806/23/2025 8:45 AM EST Pulse--Temperature--Respiratory Rate--Oxygen Saturation--Inhaled Oxygen Concentration--Bwqwpz09.6 kg (177 lb 12.8 oz)06/23/2025 8:45 AM ESTHeight--Body Mass Index27.85008/25/2024 3:08 PM ESTdocumented in this encounter Progress Notes * BRANDON Ordoñez - 06/23/2025 8:30 AM EST Reason for Appointment: Patient ID: Mary Kearns is a 24 y.o. female who presents for Contraception Patient presents today for control consult . MEDICATIONS Current Outpatient Medications Medication Instructions albuterol HFA 90 mcg/act inhaler 2 puffs, Inhalation, Every 4 hours PRN Levonorg-Eth Estr, Transderm, (Twirla) 120-30 MCG/24HR patch weekly 1 patch, Transdermal, Weekly, Apply 1 patch each week for 3 weeks, then remove for 1 week. ALLERGIES Allergies Allergen Reactions Gluten Meal Medi-Pads [Witch Darlene] Womans period pads Prednisone Heart problem Other Reaction(s): heart problem PROBLEMS Active Ambulatory Problems Diagnosis Date Noted Arthralgia of multiple joints 10/22/2023 Celiac disease (HCC) 10/22/2023 Disorder of both eustachian tubes 10/22/2023 Generalized anxiety disorder 10/22/2023 Gastroesophageal reflux disease without esophagitis 10/22/2023 Hematochezia 10/22/2023 Major depressive disorder, recurrent episode, mild 10/22/2023 Mild intermittent asthma, uncomplicated (HCC) 10/22/2023 Allergic rhinitis due to pollen 10/22/2023 Viral gastroenteritis 10/22/2023 Right ear impacted cerumen 10/22/2023 Right foot pain 10/22/2023 Allergic contact dermatitis due to cosmetics 08/25/2024 Resolved Ambulatory Problems Diagnosis Date Noted Dermatitis 10/22/2023 Acute bronchitis due to other specified organisms 07/27/2024 Acute UTI 07/30/2024 Past Medical History: Diagnosis Date Chronic UTI Endometriosis Menorrhagia HISTORY PAST MEDICAL HISTORY SOCIAL HISTORY Past Medical History: Diagnosis Date Celiac disease (HCC) Chronic UTI Endometriosis Menorrhagia Social History Tobacco Use Smoking status: Never Smokeless tobacco: Never Substance Use Topics Alcohol use: Not on file Drug use: Not on file FAMILY HISTORY Family History Family history unknown: Yes SURGICAL HISTORY Past Surgical History: Procedure Laterality Date MYRINGOTOMY W/ TUBES TONSILLECTOMY WISDOM TOOTH EXTRACTION REVIEW OF SYSTEMS Review of Systems: Review of Systems Constitutional: Negative. HENT: Negative. Eyes: Negative. Respiratory: Negative. Cardiovascular: Negative. Gastrointestinal: Negative. Genitourinary: Negative. Musculoskeletal: Negative. Skin: Negative. Neurological: Negative. All other systems reviewed and are negative. Hematological: Negative. Endocrine: Negative. Allergic/Immunologic: Negative. OBJECTIVE Objective: Physical Exam Constitutional: Appearance: Normal appearance. She is normal weight. HENT: Head: Normocephalic. Cardiovascular: Rate and Rhythm: Normal rate. Pulses: Normal pulses. Pulmonary: Effort: Pulmonary effort is normal. Breath sounds: Normal breath sounds. Abdominal: Palpations: Abdomen is soft. Musculoskeletal: General: Normal range of motion. Neurological: General: No focal deficit present. Mental Status: She is alert and oriented to person, place, and time. Psychiatric: Mood and Affect: Mood normal. Behavior: Behavior normal. Thought Content: Thought content normal. Judgment: Judgment normal. Vitals and nursing note reviewed. Vitals: Estimated body mass index is 27.85 kg/m?? as calculated from the following: Height as of 08/25/24: 5' 7 . Weight as of this encounter: 177 lb 12.8 oz. BP: 110/68 No LMP recorded. Assessment/Plan ICD-10-CM 1. control counseling Z30.09 Levonorg-Eth Estr, Transderm, (Twirla) 120-30 MCG/24HR patch weekly Assessment/Plan Patient presents for control options. She states oral contraceptions have made her ill in thepast. She had used a patch in the past. We will send her samples of twirla and a script to her pharmacy. If she decides to change to a mirena she will call to schedule. Both options discussed. 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 Documented by BRANDON Ordoñez on behalf of: BRANDON Ordoñez documented in this encounter Plan of Treatment DateTypeDepartmentCare Team (Latest Contact Info)Icumirhsocz35/20/2026 11:00 AM ESTOffice Visit [facility] [address] [place] [address] Marquis Bernal DO [address] [place] [address] documented as of this encounter Visit Diagnoses Diagnosis control counseling documented in this encounter Care Teams Team MemberRelationshipSpecialtyStart DateEnd Date Joaquín Bruce MD [address] [place] [address] PCP - GeneralFamily Medicine10/22/23documented as of this encounter
--- OUTSIDE RECORDS SUMMARY | 2025-07-06 16:45 | XMS_ITS | Encounter Summary ---
Author Organization [facility] Address [address] [place] [address] Care Team Providers Care Vascular Manager Name Role Phone Joaquín Bruce MD Primary Care Provider [phone] Encounter Details DateTypeDepartmentCare Team (Latest Contact Info)Vhpkfrbyabq28/17/2025Telephone [facility] OBGYJose [address] [place] [address] Kaylen Aragon PA [address] [place], [place] [phone] Social History Tobacco UseTypesPacks/DayYears UsedDateSmoking Tobacco: NeverSmokeless Tobacco: NeverCommentsUnknownSex and Gender InformationValueDate RecordedSex Assigned at BirthNot on fileLegal AozSctmga28/15/2023 7:21 PM EDTGender Identity Not on fileSexual OrientationNot on filedocumented as of this encounter Miscellaneous Notes * Telephone Encounter - Miley Daniel LPN - 06/23/2025 9:50 AM EST Patient called the office and she state that insurance did advised her for the patch it would be over $300. Patient states that she can not do this and that she would like to change. Patient was advised we can send this to our specialty pharmacy to see if the coverage would be better should be around $50 for 3 months and then if for some reason [facility] can not do we can send in a patch for her. PVU and script was sent to [facility] at this time. documented in this encounter Plan of Treatment DateTypeDepartmentCare Team (Latest Contact Info)Nlkcniitlaz43/20/2026 11:00 AM ESTOffice Visit [facility] [address] [place] [address] Marquis Bernal DO [address] [place] [address] documented as of this encounter Visit Diagnoses Diagnosis control counseling documented in this encounter Care Teams Team MemberRelationshipSpecialtyStart DateEnd Date Joaquín Bruce MD [address] [place] [address] PCP - GeneralFamily Medicine10/22/23documented as of this encounter
--- OUTSIDE RECORDS SUMMARY | 2025-07-06 16:45 | XMS_ITS | Encounter Summary ---
Author Organization [facility] Address [address] [place] [address] Care Team Providers Care Cra Officer Name Role Phone Joaquín Bruce MD Primary Care Provider [phone] Encounter Details DateTypeDepartmentCare Team (Latest Contact Info)Gqgkhadklre85/17/2025Travel Social History Tobacco UseTypesPacks/DayYears UsedDateSmoking Tobacco: NeverSmokeless Tobacco: NeverCommentsUnknownSex and Gender InformationValueDate RecordedSex Assigned at BirthNot on fileLegal EjiPxhvge40/15/2023 7:21 PM EDTGender Identity Not on fileSexual OrientationNot on filedocumented as of this encounter Plan of Treatment DateTypeDepartmentCare Team (Latest Contact Info)Wcpdbpccmmh41/20/2026 11:00 AM ESTOffice Visit [facility] OBNANCI [address] [place] [address] Marquis Bernal DO [address] [place] [address] documented as of this encounter Visit Diagnoses Not on filedocumented in this encounter Care Teams Team MemberRelationshipSpecialtyStart DateEnd Date Joaquín Bruce MD [address] [place] [address] PCP - GeneralFamily Medicine10/22/23documented as of this encounter
--- OUTSIDE RECORDS SUMMARY | 2025-07-06 16:45 | XMS_ITS | Encounter Summary ---
Author Organization [facility] Address [address] [place] [address] Care Team Providers Care Manager Council Name Role Phone Joaquín Bruce MD Primary Care Provider [phone] Encounter Details DateTypeDepartmentCare Team (Latest Contact Info)Aupozbczbgm05/17/2025amboo flowsheet [facility] [address] [address] Kaylen Aragon PA [address] [place], [facility] Social History Tobacco UseTypesPacks/DayYears UsedDateSmoking Tobacco: NeverSmokeless Tobacco: NeverCommentsUnknownSex and Gender InformationValueDate RecordedSex Assigned at BirthNot on fileLegal MqaBjnios53/15/2023 7:21 PM EDTGender Identity Not on fileSexual OrientationNot on filedocumented as of this encounter Plan of Treatment DateTypeDepartmentCare Team (Latest Contact Info)Kpyknvzizmr57/20/2026 11:00 AM ESTOffice Visit [facility] [address] [address] Marquis Bernal DO [address] [facility] [address] [place], [facility] documented as of this encounter Visit Diagnoses Not on filedocumented in this encounter Care Teams Team MemberRelationshipSpecialtyStart DateEnd Date Joaquín Bruce MD [address] [place] [address] PCP - GeneralFamily Medicine10/22/23documented as of this encounter
--- OUTSIDE RECORDS SUMMARY | 2025-07-06 16:45 | XMS_ITS | Clinical Summary ---
Author Organization [facility] Address [address] [place] [address] Care Team Providers Care Craps Dealer Name Role Phone Joaquín Bruce MD Primary Care Provider [phone] Allergies Active AllergyReactionsCriticalityNoted DateCommentsGluten Meal02/20/2023Witch Hazel02/20/2023 Womans period pads Xrnosejirx31/16/2023 Heart problem Other Reaction(s): heart problem Medications MedicationSigDispense QuantityRefillsLast FilledStart DateEnd DateStatus albuterol HFA 90 mcg/act inhaler Indications:Mild intermittent asthma, unspecified whether complicated (HCC) Inhale 2 puffs every 4 (four) hours if needed for shortness of breath 18 g tive Levonorg-Eth Estr, Transderm, (Twirla) 120-30 MCG/24HR patch weekly Indications: control counselingPlace 1 patch on the skin 1 (one) time per week Apply 1 patch each week for 3 weeks, then remove for 1 week. 9 patch ctive pantoprazole (Protonix) 40 MG EC tablet Indications:Gastroesophageal reflux disease without esophagitisTake 1 tablet (40 mg) by mouth in the morning. Take before meals. Do not crush, chew, or split.. 30 tablet Discontinued(Other) hydrOXYzine HCl (Atarax) 25 MG tablet Indications:Generalized anxiety disorderTake 1 tablet (25 mg) by mouth 4 (four) times a day as needed for anxiety 30 tablet Discontinued(Other) predniSONE (Deltasone) 10 MG tablet Indications:Allergic contact dermatitis due to cosmetics6 PO daily x 3 days, 4 PO daily x 3 days, 2 PO daily x 3 days, 1 PO daily x 3 days 39 tablet Discontinued(Other) Levonorg-Eth Estr, Transderm, (Twirla) 120-30 MCG/24HR patch weekly Indications: control counselingPlace 1 patch on the skin 1 (one) time per week for 28 days Apply 1 patch each week for 3 weeks, then remove for 1 week. 3 patch 111Discontinued(Reorder) Active Problems ProblemNoted DateDiagnosed DateAllergic contact dermatitis due to cosmetics 08/25/2024 Assessment & Plan (08/25/2024 3:25 PM EST): Likely reacting to new shampoo. Treat with prednisone and use hydroxyzine PRN. Use lotion PRN. Arthralgia of multiple adhvrq1910/22/2023eliac hpvhrkw9210/22/2023isorder of both eustachian tubes10/22/2023 Assessment & Plan (10/22/2023 12:24 PM EDT): Fluid behind TM and frequent symptoms. Resume flonase. Prior tubes and refer to ENT. Generalized anxiety jfguppdo84/16/2024Gastroesophageal reflux disease without yhpigonifcb24/16/2024 Assessment & Plan (10/22/2023 12:25 PM EDT): Worsening symptoms and resume protonix. Fubnugalqykc51/16/2024Major depressive disorder, recurrent episode, mild 10/22/2023Mild intermittent asthma, kdclkpgpxkixd54/16/2024llergic rhinitis due to ueybqb1710/22/2023Viral hambrnvkhvbuzux95/16/2024 Assessment & Plan (10/22/2023 12:26 PM EDT): Recent symptoms and likely viral. Increase fluids. Wash hands prior to eating and monitor. Right ear impacted iayetmh4710/22/2023 Assessment & Plan (10/22/2023 12:25 PM EDT): Ear plugged and impaction on exam. Ear irrigated with water and cerumen removed with speculum. Canal clear after procedure. Use debrox or drops of baby oil to prevent build up of wax in future. Do not use q-tips inside ear. Right foot pain10/22/2023 Assessment & Plan (10/22/2023 12:26 PM EDT): Pain without injury and possibly related to activity. Treat with prednisone. Ice and elevate. Checkx-ray due to bump on outer mid foot. Resolved Problems ProblemNoted DateDiagnosed DateResolved DateAcute UTI Assessment & Plan (07/30/2024 10:43 AM EST): UA suggestive UTI and treat. Currently on levaquin and start macrobid for infection. Use pyridium for symptoms. Send urine for culture. Increase water intake and cranberry juice. Use motrin or tylenol for discomfort. Acute bronchitis due to other specified ybqwyvcyy39 Assessment & Plan (07/27/2024 2:23 PM EST): [...] if no better or worse call office. Qxbhlcdouk88/16/202404/ Encounters DateTypeDepartmentCare CtfpKzltzepwjhj32/17/2025 8:30 AM ESTOffice Visit [facility] [address] [place] [address] Kaylen Aragon PA control bosijomvod88/17/2025Telephone [facility] [address] [place] [address] Kaylen Aragon PA 06/23/20259196Hlnqfq50/17/2025Bamboo flowsheet [facility] [address] [place] [address] Kaylen Aragon PA 06/17/2025Telephone [facility] HERNANDEZGYN [address] [place] [address] Stephanie Gomez MA from Last 3 Months Social History Tobacco UseTypesPacks/DayYears UsedDateSmoking Tobacco: NeverSmokeless Tobacco: Never Tobacco Cessation:Counseling Given: Not Answered CommentsUnknownSex and Gender InformationValueDate RecordedSex Assigned at BirthNot on fileLegal VqgBuzmdf06/15/2023 7:21 PM EDTGender IdentityNot on fileSexual OrientationNot on file Last Filed Vital Signs Vital SignReadingTime TakenCommentsBlood Yzcaeoas493/6806/23/2025 8:45 AM EST Lymoq620308/25/2024 3:08 PM IYUFqquccellgw30.6 ??C (97.8 ??F)08/25/2024 3:08 PM ESTRespiratory Jdsi329008/25/2024 3:08 PM ESTOxygen Quhimjdqfo41%08/25/2024 3:08 PM ESTInhaled Oxygen Concentration--Aucxko35.6 kg (177 lb 12.8 oz)06/23/2025 8:45 AM FUEGvywfx056.2 cm (5' 7 )08/25/2024 3:08 PM ESTBody Mass Index27.85 08/25/2024 3:08 PM EST Plan of Treatment DateTypeDepartmentCare Team (Latest Contact Info)Ogmjbimimdf46/20/2026 11:00 AM ESTOffice Visit [facility] [address] [place] [address] Marquis Bernal DO [address] [facility] [place], [place] [id number] Insurance * Guarantor: Mary Kearns TypeRelation to PatientDate of PhoneBilling AddressPersonal/KoesjsDvus65/25/[address] [address] Care Teams Team MemberRelationshipSpecialtyStart DateEnd Date Joaquín Bruce MD [address] [place] [address] PCP - GeneralFamily Medicine10/22/23
--- OUTSIDE RECORDS SUMMARY | 2025-07-06 16:45 | XMS_ITS | Clinical Summary ---
Author Organization [facility] Address [id number] [address] [place] [address] Care Team Providers Care Inspector [employer] Name Role Phone Joaquín Bruce MD Primary Care Provider [phone] Allergies No known active allergies Medications MedicationSigDispense QuantityRefillsLast FilledStart DateEnd DateStatus acetaminophen (TYLENOL EXTRA STRENGTH) 500 mg tablet Take 1 tablet (500 mg total) by mouth every 6 (six) hours as needed for pain. 30 tablet 08/08/2022ctive Additional Information Patient not taking.Reported on 10/03/2023 ibuprofen (MOTRIN) 400 mg tablet Take 1 tablet (400 mg total) by mouth every 6 (six) hours as needed for pain. 30 tablet 08/08/2022ctive Additional Information Patient not taking.Reported on 10/03/2023 loperamide (IMODIUM) 2 mg capsule Take 1 capsule (2 mg total) by mouth 4 (four) times a day as needed for diarrhea. 12 capsule 10/03/2023ctive Additional Information Patient not taking.Reported on 07/14/2024 promethazine (PHENERGAN) 25 mg tablet Take 1 tablet (25 mg total) by mouth every 6 (six) hours as needed for nausea or vomiting. 15 tablet 10/03/2023ctive Additional Information Patient not taking.Reported on 07/14/2024 albuterol (PROVENTIL HFA;VENTOLIN HFA) 90 mcg/actuation inhaler Inhale 2 puffs every 6 (six) hours as needed for wheezing.Active Encounters DateTypeDepartmentCare OgjjZgshjlkbhms82/17/2025 11:44 PM EST - 05/25/2025 1:34 AM ESTEmergency [facility] [address] [place] [address] William Ponce MD Chest pain, unspecified type (Primary Dx); Acute cough Discharge Disposition: Home05/24/2025Travelfrom Last 3 Months Social History Tobacco UseTypesPacks/DayYears UsedDateSmoking Tobacco: FormerCigarettes Smokeless Tobacco: Never Tobacco Cessation:Counseling Given: Not Answered Alcohol UseStandard Drinks/WeekCommentsNot Currently0 (1 standard drink = 0.6 oz pure alcohol)ChildcareAnswerDate LvlofoybGbmtxjrzlHmmqpou99/30/2020Employment AnswerDate NjmusmgrUzfnrmtwksTtfmuvj70/30/2020Hunger ScreeningAnswerDate RecordedWithin the past 12 months we worried whether our food would run out before we got money to buy more.Never True05/24/2025Within the past 12 months the food we bought just didn't last and we didn't have money to get more.Never True05/24/2025Purpose - LifeAnswerDate RecordedPurpose and direction in life Cutxmau74/11/2021CommentsNoSex and Gender InformationValueDate Recorded Sex Assigned at BirthNot on fileLegal LtjJjdnzo54/06/2015 12:01 PM EDTGender IdentityNot on fileSexual OrientationNot on file Last Filed Vital Signs Vital SignReadingTime TakenCommentsBlood Adjdvprs362/6105/25/2025 1:15 AM EST Hyxzd328705/25/2025 1:15 AM DWPUtwsyfmnefb50.6 ??C (97.8 ??F)05/24/2025 10:41 PM ESTRespiratory Ferp030705/25/2025 1:15 AM ESTOxygen Fyhypzklsj069%05/25/2025 1:15 AM ESTInhaled Oxygen Concentration--Efwxzn39.1 kg (170 lb)05/24/2025 10:41 PM WLFNaldfp456.2 cm (5' 7 )05/24/2025 10:41 PM ESTBody Mass Index26.6305/24/2025 10:41 PM EST Plan of Treatment Health MaintenanceDue DateLast DoneCommentsDepression Tzsqhnyvz70/25/2013dult BMI Follow Up Plan2018Influenza Stpcitw0803/08/2025DTaP,Tdap and Td Vaccines (6 - Td or Tdap)5003/21/2015, 09/22/2001, 03/21/2001, Additional history existsPap Smear04/04//dult BMI Tblyxxlvq87 Tobacco Qvvrnvjzw96 Medical Devices Not on file Procedures Procedure NamePriorityDate/TimeAssociated DiagnosisCommentsXR CHEST 2 VWSSTAT 05/25/2025 12:28 AM EST from Last 3 Months Results * X-ray chest 2 views (05/25/2025 12:28 AM EST)Anatomical RegionLaterality ModalityBody, ChestN/AComputed RadiographySpecimen (Source)Anatomical Location / LateralityCollection Method / VolumeCollection TimeReceived Time05/25/2025 12:41 AM EST Narrative 05/25/2025 12:58 AM EST XR CHEST 2 VWS 05/25/2025 12:20 AM INDICATION: chest pain , cough COMPARISON: XR chest 07/14/2024 TECHNIQUE: PA upright and lateral radiographic view(s) obtained. FINDINGS: Lines/Tubes/Devices: None. Respiratory: No pneumothorax, pleural effusion, or focal consolidation. Cardiomediastinum: Nonenlarged silhouette. IMPRESSION: * ??No acute pulmonary process. Approved by Resident: Carlin Bob MD ??on 05/25/2025 12:41 AM INeel MD have personally reviewed the image(s) and agree with and/or edited the report Finalized by Neel Lerner MD on 05/25/2025 12:58 AM Procedure Note Neel Lerner MD - 05/25/2025 XR CHEST 2 VWS 05/25/2025 12:20 AM INDICATION: chest pain , cough COMPARISON: XR chest 07/14/2024 TECHNIQUE: PA upright and lateral radiographic view(s) obtained. FINDINGS: Lines/Tubes/Devices: None. Respiratory: No pneumothorax, pleural effusion, or focal consolidation. Cardiomediastinum: Nonenlarged silhouette. IMPRESSION: * No acute pulmonary process. Approved by Resident: Carlin Bob MD on 05/25/2025 12:41 AM I, Neel Lerner MD have personally reviewed the image(s) and agreewith and/or edited the report Finalized by Neel Lerner MD on 05/25/2025 12:58 AM Authorizing ProviderResult TypeResult StatusWilliam Ponce MDIMMicki DIAGNOSTIC IMAGING ORDERABLESFinal Result from Last 3 Months Insurance Care Teams Team MemberRelationshipSpecialtyStart DateEnd Date Joaquín Bruce MD PCP - GeneralFamily Medicine08/08/22
[2025-07-06 17:17] LABS: Hematocrit 36.7 % (36.0-48.0); Hemoglobin 11.8 g/dL (12.0-16.0); Immature Granulocytes Abs Auto 0.03 10^3/uL (0.00-0.03); Immature Granulocytes Pct Auto 0.4 % (0.0-0.5); Lymphocytes Absolute Auto 1.7 10^3/uL (1.2-3.8); Mean Corpuscular HGB Conc 32.2 g/dL (29.9-35.2); Mean Corpuscular Hemoglobin 26.1 pg (26.7-34.0); Mean Corpuscular Volume 81.2 fL (81.0-99.0); Platelet Count 265 10^3/uL (150-450); Red Blood Count 4.52 10^6/uL (4.20-5.40); White Blood Count 7.1 10^3/uL (4.0-11.0)
--- OUTSIDE RECORDS SUMMARY | 2025-07-06 17:23 | XMS_ITS | CCD ---
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 Name Role Phone Triny Guerra Unavailable DR JOAQUÍN BRANCH Admitting Unavailable JOSE CARLOS, DR JOAQUÍN Gilbert Attending Unavailable JOSE CARLOS, DR JOAQUÍN Gilbert Primary Care Unavailable JOSE CARLOS, DR JOAQUÍN Gilbert Consulting Unavailable MD Joaquín Branch Primary Care Provider ERVIN Guerra Attending Provider Triny Guerra Attending Unavailable Triny Guerra Admitting Unavailable Jose Carlos, Joaquín Primary Care Unavailable Shira, Lorraine Unavailable JOAQUÍN BRANCH Primary Care Unavailable CALLY REIS Attending Unavailable JOSE CARLOS, JOAQUÍN Primary Care Unavailable SANDY SOUZA Attending Unavailable Joaquín Branch MD Primary Care Provider JOAQUÍN BRANCH Attending Unavailable JOSE CARLOS, JOAQUÍN Attending Unavailable JOSE CARLOS, JOAQUÍN Attending Unavailable CHANDA GIANG Attending Unavailable JOSE CARLOS, JOAQUÍN Attending Unavailable Joaquín Branch MD Primary Care Provider Joaquín Branch MD Attending Provider [phone] Joaquín Branch MD Primary Care Provider Allergies Allergy ClassificationReported Allergen(s)Allergy TypeDate of OnsetReaction(s) Facility (12 sources)GlutenPropensity to adverse gqewjtqrz90-86-1932[facility] Work Phone: (13 sources)PrednisonePropensity to adverse vkaozouln23-51-9205zupme [facility] (12 sources)Witch HazelDrug Tyhyrkp26-02-8463[facility] (1 source)GlutenAllergy to vlplwanvl36-68-5350Ijplohv [facility] (1 source)Medi-padsAllergy to erykfjqro25-18-5194Vfppifl ReactionPremier Health Atrium Medical CenterComment on above:witch kalpesh, women's period pads Medications Current Medications MedicationDrug Class(es)DatesSig (Normalized)Sig (Original)[id number] 200 actuat albuterol 0.09 mg/actuat metered dose inhaler (16 sources)beta2-Adrenergic AgonistStart: 23-92-7463zcxv 1 puff(s) by inhalation every four hours as neededAlbuterol Sulfate 90 mcg/actuation HFA aerosol inhaler Active 2 PUFF INHALATION Every 4 hours as needed April 12, 2025 12:00am Complies with drug therapyStart: 06-06-2023 End: 27-90-2743hbtq 2 puff(s) by inhalation every four hoursalbuterol HFA 90 mcg/act inhaler Indications: Mild intermittent asthma, unspecified whether complicated (CMS/HCC) Inhale 2 puffs every 4 (four) hours if needed for shortness of breath 18 g 2 07/27/2024 ActiveStart: 26-99-6259lzyg 1 puff(s) by inhalation every four hours as neededAlbuterol Sulfate HFA 108 (90 Base) MCG/ACT 1 puff as needed Inhalation every 4 hrs for 14 days May, ActiveStart: 23-93-7106vliq 1 puff(s) by inhalation every four hours as neededAlbuterol Sulfate HFA 108 (90 Base) MCG/ACT 1 puff as needed Inhalation every 4 hrs for 14 days May, Not-Taking/PRNStart: 53-87-4675mjtp 2 puff(s) by inhalation four times daily as neededAlbuterol Sulfate HFA 108 (90 Base) MCG/ACT 2 puffs Inhalation 4 times a day prn Apr, Activeamoxicillin 500 mg oral tablet (1 source)Penicillin-class AntibacterialStart: 72-59-5345xhja 1 tablet by mouth every twelve hoursAmoxicillin 500 MG 1 tablet Orally Twice a day for Jun, Activecefdinir 300 mg oral capsule (1 source)Cephalosporin AntibacterialStart: 67-17-2115yuss 1 capsule by mouth twice dailyCefdinir 300 mg capsule Active 300 MG PO Twice daily April 07, 2025 12:00am Complies with drug therapyfluticasone propionate 0.05 mg/actuat metered dose nasal spray (1 source)CorticosteroidStart: 82-01-2086eheo 1 spray(s) nasal route once daily Fluticasone Propionate 50 MCG/ACT 1 spray in each nostril Nasally Once a day for 14 Jun, ActivehydrOXYzine hydrochloride 25 mg oral tablet (12 sources)AntihistamineStart: 42-43-7657izsq 1 tablet by mouth four times daily as neededHydroxyzine Hcl 25 mg tablet Active 25 MG PO Four times daily as needed April 12, 2025 12:00am Complies with drug therapyStart: 12-00-6062rfmv 1 tablet by mouth four times daily as needed for anxietyhydrOXYzine HCl (Atarax) 25 MG tablet Indications: Generalized anxiety disorder (CMS/HCC) Take 1 tablet (25 mg) by mouth 4 (four) times a day as needed for anxiety 30 tablet 2 12/31/2023 ActivelevoFLOXacin 750 mg oral tablet (5 sources)Quinolone AntimicrobialStart: 07-27-2024 End: 81-24-3930hbrq 1 tablet by mouth once dailylevoFLOXacin (Levaquin) 750 MG tablet Indications: Acute bronchitis due to other specified organisms Take 1 tablet (750 mg) by mouth Daily for 7 days 7 tablet 07/27/2024 08/03/2024 Active nitrofurantoin, macrocrystals 25 mg / nitrofurantoin, monohydrate 75 mg oral capsule (2 sources)Nitrofuran AntibacterialStart: 07-30-2024 End: 59-63-5732uciu 1 capsule by mouth in the morningnitrofurantoin, macrocrystal-monohydrate, (Macrobid) 100 MG capsule Indications: Acute UTI Take 1 capsule (100 mg) by mouth in the morning and 1 capsule (100 mg) before bedtime. Do all this for 7 days. 14 capsule 07/30/2024 08/06/2024 Active pantoprazole 40 mg delayed release oral tablet (13 sources)Proton Pump InhibitorStart: 69-66-3614hlyr 1 tablet by mouth once dailyPantoprazole 40 mg tablet,delayed release (DR/EC) Active 40 MG PO Daily April 12, 2025 12:00am Complies with drug therapyphenazopyridine hydrochloride 200 mg delayed release oral tablet (2 sources)Start: 07-30-2024 End: 61-05-3829vuuahvisfzietxa (Pyridium) 200 MG tablet Indications: Acute UTI Take 1 tablet (200 mg) by mouth in the morning and 1 tablet (200 mg) at noon and 1 tablet (200 mg) in the evening. Take with meals. Do all this for 2 days. 6 tablet 07/30/2024 2024 ActivepredniSONE 10 mg oral tablet (3 sources)Start: 57-61-3009jtog 6 tablets by mouth once daily, then take 4 tablets by mouth once daily, then take 2 tablets bymouth once daily, then take 1 tablet by mouth once dailypredniSONE (Deltasone) 10 MG tablet Indications: Allergic contact dermatitis due to cosmetics 6 PO daily x 3 days, 4 PO daily x 3 days, 2 PO daily x 3 days, 1 PO daily x 3 days 39 tablet 08/25/2024 ActiveStart: 37-21-5555ykgn 1 tablet by mouth every twelve hourspredniSONE 20 MG 1 tablet Orally 2 times a day for 5 day(s) Apr, Active Completed/Discontinued Medications MedicationDrug Class(es)DatesSig (Normalized)Sig (Original)azithromycin 250 mg oral tablet (2 sources)Macrolide AntimicrobialStart: 75-48-6850Vcrqcdgzinhb 250 MG Take 2 tablets on first day then 1 tablet daily for 4 days Orally as directed for 5 May, Not-Taking/PRNbenzonatate 200 mg oral capsule (8 sources)Non-narcotic AntitussiveStart: 07-27-2024 End: 64-12-3796qwtx 1 capsule by mouth three times daily as needed for cough benzonatate (Tessalon) 200 MG capsule Indications: Acute bronchitis due to other specified organisms Take 1 capsule (200 mg) by mouth 3 (three) times a day as needed for cough Do not crush or chew. 30 capsule 1 07/27/2024 08/25/2024 Discontinuedfluconazole 150 mg oral tablet (4 sources)Azole AntifungalStart: 63-06-4736Ziorvbbz 150 MG 1 tablet Orally once for 2 days Take 1 tablet today by mouth, take the second tablet in 3 days. Jul, Not-Taking/PRNLevonorgestrel-Eth Estradiol (Twirla) 120-30 MCG/24HR patch weekly (10 sources)Start: 07-22-2024 End: 69-72-9368qvxpw 1 dose transdermal route every weekLevonorgestrel-Eth Estradiol (Twirla) 120-30 MCG/24HR patch weekly Indications: control counseling Place 1 patch on the skin 1 (one) time per week 28 patch 11 07/22/2024 08/25/2024 DiscontinuedStart: 52-73-6998tdqoz 1 dose transdermal route every weekLevonorgestrel-Eth Estradiol (Twirla) 120-30 MCG/24HR patch weekly Indications: control counseling Place 1 patch on the skin 1 (one) time per week 28 patch 11 07/22/2024 ActivemethylPREDNISolone 4 mg oral tablet (2 sources)CorticosteroidStart: 24-49-7047Wygxug 4 MG as directed Orally as directed for 6 days May, Not-Taking/PRNPARoxetine hydrochloride 10 mg oral tablet (11 sources)Serotonin Reuptake InhibitorStart: 12-31-2023 End: 47-32-0612gygq 1 tablet by mouth in the morningPARoxetine (Paxil) 10 MG tablet Indications: Generalized anxiety disorder (CMS/HCC) Take 1 tablet (10 mg) by mouth in the morning. 30 tablet 2 12/31/2023 08/25/2024 Discontinued Problems Active Problems Problem ClassificationProblemDateDocumented DateEpisodic/ChronicAbdominal pain (18 sources)Generalized abdominal pain; Translations: [Generalized abdominal pain]38-04-9887LpnehbhaJogxeso disorders (13 sources)Generalized anxiety disorder; Translations: [Generalized anxiety disorder]Onset: 248895-59-5465ZizjcifVcyzdn (15 sources)Mild intermittent asthma; Translations: [Mild intermittent asthma, uncomplicated]Onset: 672116-38-0998PfakyznMuyvimbcsv disorders (19 sources)Gastroesophageal reflux disease; Translations: [Gastro-esophageal reflux disease without esophagitis]Onset: hronic Genitourinary symptoms and ill-defined conditions (8 sources)Dysuria; Translations: [Dysuria]Onset: 52-79-7207Zduwxviu Immunizations and screening for infectious disease (6 sources)Contact with and (suspected) exposure to other viral communicable diseases; Translations: [Contact with and (suspected) exposure to other viral communicable diseases]EpisodicMood disorders (13 sources)Recurrent major depressive episodes, mild ; Translations: [Major depressive disorder, recurrent, mild]Onset: 759353-16-8721SxogugpMymnfx and vomiting (7 sources)Nausea; Translations: [Nausea]Onset: 704165-80-3217Ukkhnjhn Other female genital disorders (1 source)Other specified noninflammatory disorders of vaginaEpisodicOther gastrointestinal disorders (20 sources)Celiac disease; Translations: [Celiac disease]Onset: 10-22-2023 59-94-7411SdmkfbgVgufs gastrointestinal disorders (6 sources)Irritable bowel syndrome; Translations: [Irritable bowel syndrome without diarrhea]41-93-5603NytzxxsBxivs gastrointestinal disorders (6 sources)Constipation; Translations: [Constipation, unspecified]04-13-2025 EpisodicOther lower respiratory disease (1 source)CoughOnset: 20-77-3897LiwwqgaqHfgwh nervous system disorders (2 sources)Disorder of autonomic nervous system; Translations: [Disorder of the autonomic nervous system, unspecified]45-75-6079DlrvymgNavgi non-traumatic joint disorders (1 source)Pain in unspecified joint; Translations: [PAIN IN UNSPECIFIED JOINT] Onset: 18-04-6786XcbihyhvHvljg upper respiratory disease (13 sources)Allergic rhinitis due to pollen; Translations: [Allergic rhinitis due to pollen]Onset: 682396-70-9510DjyviepCubgg upper respiratory infections (2 sources)Sinusitis; Translations: [Chronic sinusitis, unspecified]ChronicOther upper respiratory infections (1 source)Viral upper respiratory tract infection; Translations: [Acute upper respiratory infection, unspecified]53-38-5234CuhixgokYkczfcpvgyny (1 source)VOMITING, DIARRHEAOnset: 10-03-2023 Past or Other Problems Problem ClassificationProblemDateDocumented DateEpisodic/ChronicAcute bronchitis (14 sources)Acute bronchitis, unspecified; Translations: [Acute infective bronchitis]Onset: 07-14-2024 Resolved: 04-63-6193HowltpblAjopyump reactions (17 sources)Inflammatory dermatosis; Translations: [Dermatitis, unspecified] Onset: 10-22-2023 Resolved: 918066-85-4441ZvbnphyyJhcjbghequcsjncv hemorrhage (13 sources)Blood-tinged feces; Translations: [Melena]Onset: 10-22-2023 84-32-9434YelslxfdDfadwwcztx infection (13 sources)Viral gastroenteritis; Translations: [Viral intestinal infection, unspecified]Onset: 642936-59-3270WpupobriOvknfrlvzqpwm gastroenteritis (1 source)Noninfective gastroenteritis and colitis, unspecified; Translations: [Noninfective gastroenteritis and colitis, unspecified]Onset: 85-62-7309Vlpxwpsm Other connective tissue disease (13 sources)Pain in right foot; Translations: [Pain in right foot]Onset: 249763-09-5410DpxactokXmxfo ear and sense organ disorders (12 sources)Impacted cerumen in right ear; Translations: [Impacted cerumen, right ear]Onset: 525484-49-4874PzajnffoEocya gastrointestinal disorders (1 source)DiarrheaOnset: 53-85-4954NynrcnisTeshq non-traumatic joint disorders (13 sources)Multiple joint pain; Translations: [Pain in unspecified joint]Onset: 011925-89-2114VmvbtwifXdqnwb media and related conditions (14 sources)Otitis media, unspecified, bilateral; Translations: [Bilateral disorder of Eustachian tubes]Onset: 01-56-0144NhvelfgfElusidt tract infections (8 sources)Acute urinary tract infection; Translations: [Urinary tract infection, site not specified]Onset: 07-30-2024 Resolved: 469069-95-7602UyxlemqxPvjii infection (1 source)COVID-19 Results Test NameValueInterpretationReference RangeFacilityUrinalysis macro (dipstick) panel (U)on 66-80-1739Tcbqjwtdr, UANegativeNegative - 4(70) +++ mg/dLNOMS HealthcareBlood, UAPositiveNegative - 50 Tacho/mcLNOMS HealthcareClarity, UACloudy [facility] HealthcareColor, UAOrangeNOCT HealthcareGlucose, UAPositiveNegative - 1999(110) ++++ mg/dLFILLMORE COMMUNITY MEDICAL [facility]ENTER HealthcareInterpretation and review of laboratory resultsAbnormalNOCT HealthcareKetones, UANegativeNegative - 160(16) ++++ mg/dL [facility] HospitalLeukocytes, UANegativeNegative - 500+++ Carie/mcLFILLMORE COMMUNITY MEDICAL [facility]ENTER Healthcare Nitrite, UANegativeNegative - PositiveNOMS HealthcarepH, UA5.55 - 9NOMS HealthcareProtein, UA3+Negative - 1999(20) ++++ mg/dLFILLMORE COMMUNITY MEDICAL [facility]ENTER HealthcareSpec Grav, UA1.031 - 1.03NOMS HealthcareUrobilinogen, UA0.20.2 - 12 mg/dLFILLMORE COMMUNITY MEDICAL CENTER Healthcare NOMS HealthcareIGP,APTIMA HPV,AGE GDLNon 67-43-1006OKK GDLN ACOG TESTINGNote. [facility] HospitalComment on above:TESTS RESULT FLAG UNITS REF RANGE LAB Clinician Provided Cytology Information Source.............Cervix;Endocervix No. of containers..01 ThinPrep Vial Age Algo ACOG Clair... -05 08 FLAG LEGEND: L-Low Normal,H-High Normal,LL-Alert Low,HH-Alert High <-Panic Low,>-Panic High,A-Abnormal,AA-Critical Abnormal Performed at: 01 = [facility] [address] [address] Mary Stone MD, IGP, RFX APTIMA HPV ASCUNote.NOMS HealthcareComment on above:TESTS RESULT FLAG UNITS REF RANGE LAB DIAGNOSIS: 02 NEGATIVE FOR INTRAEPITHELIAL LESION OR MALIGNANCY. Specimen adequacy: 02 Satisfactory for evaluation. Endocervical and/or squamous metaplastic cells (endocervical component) are present. Performed by: 02 Deanna Clarke, Automation Engineering Technician ([facility]) . 02 Note: Note 03 The [...] High,A-Abnormal,AA-Critical Abnormal Performed at: 02 KWCYT [facility] [place] [address] [address] [place] [address] Indra Luna MD, 03 WB [facility] [address] [place] [address] Mary Stone MD, Performed at: =G - [facility] [address] [place], [place] [id number] Manager Competitive Intelligence: Mary Stone MD, Phone: [phone] Performed at: [facility] - [facility] [address] [address] [place], [place] [id number] Manager Competitive Intelligence: Indra Luna MD, Phone: [phone] BRUSH-SPATULA CERVIX ENDOCERVIX CLINISYNCNOMS HealthcareSARS/FLU A+B/RSV by NAAT/Molecularon 64-32-9609UYAY/FLU A+B/RSV by NAAT/MolecularFLU A PCR Negative (qualifier value) FLU B [...] operators who are performing tests using either [employer] DX or GeneLawrence Livermore National Laboratorypert Infinity systems and is limited to laboratories that [...] specimen repeat. Fact Sheet for Healthcare Providers: https://www.fda.gov/media/878596/download Fact Sheet for Patients: https://www.fda.gov/media/427788/downloadGuernsey Memorial HospitalComment on above:Performed By: #### COVFLR #### ([id number]) [address] [place] [address], [place], [place] [address] CHEST 1 VWon 36-92-0374NJ CHEST 1 VWXR CHEST 1 VW Single view chest History: Difficulty breathing, shortness of breath Comparison: None Impression: No acute pulmonary process. No pneumothorax or pleural effusion. Nonenlarged heart. Finalized by Bang Rossi MD on 07/14/2024 7:12 PMNormalKnox Community HospitalXR FOOT RT MIN 3Von 74-06-9372[place]plEd[place] [address] XRay Report Signed Patient: AMOS RIOS MR#: [id number] : 2000 Acct:[id number] Age/Sex: 23 / F ADM Date: 10/22/23 Loc: RAD Attending Dr: Joaquín Branch M.D. Ordering Physician: Joaquín Branch M.D. Date of Service: 10/22/23 Procedure(s): XR foot RT min 3V Accession Number(s): [id number] cc: Joaquín Branch M.D. [address] [address] Patient Name: AMOS RIOS MRN: [id number] date: 2000 Sex: F Assigned Patient Location: RAD Current Patient Location: Accession/Order Number: [id number] Exam Date: 10/22/2023 14:54 Report Date: 10/23/2023 [...] Dictated By: Cally Cho M.D. Signed By: 10/23/2351 DD/ TD/TT: Farmhand:TBHRadiology, Radiologist, - 10/25/2023 [place] [address] XRay Report Signed Patient: AMOS RIOS MR#: [id number] : 2000 Acct:[id number] Age/Sex: 23 / F ADM Date: 10/22/23 Loc: RAD Attending Dr: Joaquín Branch M.D. Ordering Physician: Joaquín Branch M.D. Date of Service: 10/22/23 Procedure(s): XR foot RT min 3V Accession Number(s): [id number] cc: Joaquín Branch M.D. [address] [place] [address] Patient Name: AMOS RIOS MRN: [id number] date: 2000 Sex: F Assigned Patient Location: [facility] Current Patient Location: Accession/Order Number: [id number] Exam Date: 10/22/2023 14:54 Report Date: 10/23/2023 [...] Dictated By: Cally Cho M.D. Signed By: 10/23/23850 DD/ 7 TD/TT: Farmhand: VERONICA HealthcareRadiology Study observation (narrative)VERONICA HealthcareXR FOOT RT MIN 3VOrdered By: Radiologist Radiology on 98-94-6340FMTK Healthcare Work Phone: cBC AND AUTO DIFFon 91-03-0393ITYQGRTN BASOPHIL0.0 X10E9/LNormal0.0-0.2Pro[facility] Community HospitalComment on above:Performed By: #### CBCA, CMP, 3040-3 #### ([id number]) [address] [place] [address]SPLGWFYY NEUTROPHIL6.6 X10E9/LNormal1.5-6.6ProSt. Joseph Medical CenterComment on above:Performed By: #### CBCA, CMP, 3040-3 #### ([id number]) [address] [place] [address] 17069Cutiurwrf/100 WBC (Bld)0.3 %[facility] Comment on above:Performed By: #### CBCA, CMP, 3040-3 #### ([id number]) [address] [place] [address] 38722Uhsyntrlnbx (Bld) [#/Vol]0.1 10*3/uLNormal0.0-0.4Knox Community HospitalComment on above:Performed By: #### CBCA, CMP, 3040-3 #### ([id number]) [address] [place] [address] 54094Hfyfkbhzhcj/100 WBC (Bld)1.4 %[facility] Comment on above:Performed By: #### CBCA, CMP, 3040-3 #### ([id number]) [address] [place] [address] 94289Tsbxjgzbsgq distribution width (RBC) [Ratio]15.3 %High11.5-15.0 [facility] HospitalComment on above:Performed By: #### CBCThelma, CMP, 3040-3 #### ([id number]) [address] [place] [address] 31755Ijouhhmftq (Bld) [Volume fraction]38.9 %Jklvje43-90GkwIuqwckSt. Joseph Medical CenterComment on above:Performed By: #### CBCThelma, CMP, 3040-3 #### ([id number]) [address] [place] [address] 38507Hzthwgabot (Bld) [Mass/Vol]12.8 g/yFUuogsw40.7-15.5POhioHealth Doctors HospitalComment on above:Performed By: #### CBCThelma, CMP, 3039-3 #### ([id number]) [address] [place] [address] 42269Fnfpyerbylg (Bld) [#/Vol]1.3 10*3/uLNormal1.0-3.5POhioHealth Doctors HospitalComment on above:Performed By: #### CBCThelma, CMP, 3040-3 #### ([id number]) [address] [place] [address] 66238Asczcbsiyji/100 WBC (Bld)15.0 %NormalKnox Community Hospital Comment on above:Performed By: #### CBCA, CMP, 3040-3 #### ([id number]) [address] [place] [address] 57010MWA (RBC) [Entitic mass]24.9 kbUwp77-50ErvJxhznpSt. Joseph Medical CenterComment on above:Performed By: #### CBCA, CMP, 3040-3 #### ([id number]) [address] [place] [address] 34804ELFN (RBC) [Mass/Vol]33.0 g/gIZhvyzx27-96NnjJmoqgiKnox Community HospitalComment on above:Performed By: #### CBCThelma, CMP, 3040-3 #### ([id number]) [address] [place] [address] 42772XEQ (RBC) [Entitic vol]76 nVRuz74-439MwwSmkzruKnox Community Hospital Comment on above:Performed By: #### CBCThelma, CMP, 0-3 #### ([id number]) [address] [place] [address] 51799Kzglhrvrn (Bld) [#/Vol]0.6 10*3/uLNormal0-0.9Kn[facility] Community HospitalComment on above:Performed By: #### CBCThelma, CMP, 0-3 #### ([id number]) [address] [place] [address] 31303Ajjjhiosv/100 WBC (Bld)6.6 %[facility] Comment on above:Performed By: #### CBCThelma, CMP, 0-3 #### ([id number]) [address] [place] [address] 39001Boflugnpydl/100 WBC (Bld)76.7 %[facility] Comment on above:Performed By: #### CBCA, CMP, 0-3 #### ([id number]) [address] [place] [address] 57417Hdnsidbu mean volume (Bld) [Entitic vol]8.6 fLNormal7-12 [facility] HospitalComment on above:Performed By: #### CBCA, CMP, 3040-3 #### ([id number]) [address] [place] [address] 88700Xjnvzrjbp (Bld) [#/Vol]262 10*3/kKIwkhnj916-607QewSqdeli [place] HospitalComment on above:Performed By: #### MARCK ASTORGA, 3040-3 #### ([id number]) [address] [place] [address] 02111XBD COUNT5.15 X10E12/LNormal3.80-5.20[facility] Comment on above:Performed By: #### MARCK ASTORGA, 3039-3 #### ([id number]) [address] [place] [address] 30739VWB (Bld) [#/Vol]8.6 10*3/uLNormal4.0-11.0ProSt. Joseph Medical CenterComment on above:Performed By: #### MARCK ASTORGA, 3039-3 #### ([id number]) [address] [place] [address] 43654IQTIYJVUSLHXL METABOLIC PANELon 17-55-8376Lqpahur [Mass/Vol]4.5 g/dLNormal3.2-5.3POhioHealth Doctors HospitalComment on above:Performed By: #### MARCK ASTORGA, 3040-3 #### ([id number]) [address] [place] [address] 64076ZRO [Catalytic activity/Vol]66 U/SQilajh69-913TtpIirwizKnox Community HospitalComment on above:Performed By: #### MARCK ASTORGA, 3040-3 #### ([id number]) [address] [place] [address] 622[address]UJZ [Catalytic activity/Vol]13 U/LNormal0-31POhioHealth Doctors HospitalComment on above:Performed By: #### MARCK ASTORGA, 3040-3 #### ([id number]) [address] [place], [place] [address]Aznvw gap [Moles/Vol]5 mmol/LNormal5-15ProSt. Joseph Medical CenterComment on above:Performed By: #### MARCK ASTORGA, 3039-3 #### ([id number]) [address] [place] [address], [place] [address]MGS [Catalytic activity/Vol]16 U/LNormal0-41ProSt. Joseph Medical CenterComment on above:Performed By: #### MARCK ASTORGA, 3039-3 #### ([id number]) [address] [place] [address], [place] [address]Mpsuodulr [Mass/Vol]1.0 mg/dLNormal0.3-1.2POhioHealth Doctors HospitalComment on above:Performed By: #### MARCK ASTORGA, 3039-3 #### ([id number]) [address] [place] [address], [place] [address]Bpeuaod [Mass/Vol]8.9 mg/dLNormal8.5-10.5POhioHealth Doctors HospitalComment on above:Performed By: #### MARCK ASTORGA, 3039-3 #### ([id number]) [address] [place] [address], [place] [address]Xazlfmkr [Moles/Vol]105 mmol/SOipsig29-389YhsGvpurkSt. Joseph Medical CenterComment on above:Performed By: #### MARCK ASTORGA, 3039-3 #### ([id number]) [address] [place] [address], [place] [address]HA4 [Moles/Vol]25 mmol/JBmfkoq35-31RuvHrlryjOhioHealth Doctors Hospital Comment on above:Performed By: #### MARCK ASTORGA, 3039-3 #### ([id number]) [address] [place] [address], [place] [address]Iocsldxfjl [Mass/Vol]0.83 mg/dLNormal0.40-1.00ProSt. Joseph Medical CenterComment on above:Result Comment: METHOD TRACEABLE TO IDMS STANDARD Performed By: #### MARCK ASTORGA, 3040-3 #### ([id number]) [address] [place] [address] 96995mLIP (CKD-EPI) NON-RACE DEPENDENT>90Normal>59ProSt. Joseph Medical CenterComment on above:Result Comment: Reported eGFR is based on the CKD-EPI 2020 equation that does not use a race coefficient.Performed By: #### MARCK ASTORGA, 3040-3 #### ([id number]) [address] [place] [address] 87238Pdwsgna [Mass/Vol]88 mg/oZXgouqs39-59HofBmlujrKnox Community Hospital Comment on above:Performed By: #### MARCK ASTORGA, 3040-3 #### ([id number]) [address] [place] [address] 12[address]Aovlovgyb [Moles/Vol]3.4 mmol/LLow3.5-5.0ProSt. Joseph Medical CenterComment on above:Performed By: #### MARCK ASTORGA, 3040-3 #### ([id number]) [address] [place] [address] 899[address]Icfmwej [Mass/Vol]7.7 g/dLNormal6.0-8.0ProSt. Joseph Medical CenterComment on above:Performed By: #### MARCK ASTORGA, 3040-3 #### ([id number]) [address] [place] [address] 28363Odmlwz [Moles/Vol]135 mmol/LWgqjvr286-852NglRbbiox [facility] HospitalComment on above:Performed By: #### MARCK ASTORGA, 3040-3 #### ([id number]) [address] [place] [address] 89441Msij nitrogen [Mass/Vol]11 mg/dLNormal5-23ProSt. Joseph Medical CenterComment on above:Performed By: #### RIZWAN, [facility], 3040-3 #### ([id number]) [address] [place] [address] 45759CEM ( test) Ql (U)on 45-52-6928Nozo HCG ( test) Ql (U)NegativeNormalNEGProSt. Joseph Medical CenterComment on above: Performed By: #### 2106-3 #### ([id number]) [address] [place] [address] [id number] 96-11-0131Wbyacs [Catalytic activity/Vol]25 U/LNormal 17-40ProSt. Joseph Medical CenterComment on above:Performed By: #### RIZWAN [facility], 3040-3 #### ([id number]) [address] [place] [address] 32778RRHQ/FLU A+B/RSV by NAAT/Molecularon 64-58-1140WXMH/FLU A+B/RSV by NAAT/MolecularFLU A PCR Negative (qualifier value) FLU B [...] operators who are performing tests using either AC Hold[employer] DX or LoveLula systems and is limited to laboratories that [...] specimen repeat. Fact Sheet for Healthcare Providers: https://www.fda.gov/media/597248/download Fact Sheet for Patients: https://www.fda.gov/media/884072/downloadNormalProSt. Joseph Medical CenterComment on above:Performed By: #### COVFLR #### ([id number]) [address] [place] [address] 66474HJR MACROSCOPIC Tao 90-48-0377WVQWUIJBW NURSmallAbnormalNEG ProMcentral alabama [facility] Angeles Community HospitalComment on above:Performed By: #### NUM #### ([id number]) [address] [place] [address] 43768KPRNB/HGB NURTraceAbnormalNEGProSt. Joseph Medical CenterComselect specialty hospital on above:Performed By: #### NUM #### ([id number]) [address] [place] [address] 39550WBSSFVZ NURNegativeNormalNEGProSt. Joseph Medical CenterComment on above:Performed By: #### NUM #### ([id number]) [address] [place] [address] 29830SVKOAUJ NURTraceAbnormalNEGProSt. Joseph Medical CenterComment on above:Performed By: #### NUM #### ([id number]) [address] [place] [address] 07570NSZJVTQKF ESTERASE NURNegativeNormalNEGProSt. Joseph Medical CenterComment on above:Performed By: #### NUM #### ([id number]) [address] [place] [address] 45948UKZGMUW NURNegativeNormalNEGProSt. Joseph Medical CenterComment on above:Performed By: #### NUM #### ([id number]) [address] [place] [address] 39333WZ NUR5.8Pfbrwa6.0-8.5POhioHealth Doctors HospitalComment on above:Performed By: #### NUM #### ([id number]) [address] [place] [address] 40322UHNPTKG NURTraceAbnormalNEGProSt. Joseph Medical CenterComment on above:Performed By: #### NUM #### ([id number]) [address] [place] [address] 12171XBHMDPNE GRAVITY DAILY>=1.439Qyzxrk7.003-1.035ProSt. Joseph Medical CenterComment on above:Performed By: #### NUM #### ([id number]) [address] [place] [address] [id number] NUR0.2 eu/dLNormal<1.1POhioHealth Doctors Hospital Comment on above:Performed By: #### NUM #### ([id number]) [address] [place] [address] 00424Zbgglfmplq - AUTOMATEDon 26-29-1751Fuzhtbeubv (U)[employer]steel Other Bilirubin Ql (U)NegativeSkataz Other Color (U)yellowShift Network Other Glucose Ql (U)NegativeShift Network Other Hemoglobin Ql (U)NegativeSkataz Other Ketones Ql (U)Kyoger Other Leukocyte esterase Test strip Ql (U)SmallShift Network Other Nitrite Ql (U)NegativeShift Network Other pH (U)6.0 [pH]Skataz Other Protein Ql (U)Kyoger Other Specific gravity (U) [Rel density]1.020[place] Pixelated Other Urobilinogen (U) [Mass/Vol]0.2 mg/dLUNYQ Pixelated Other Urinalysis - AUTOMATEDUNYQ Pixelated Other Urine Cultureon 57-40-9422Vhrkl Tchlndy85,000[place] Pixelated Other Bacteria identified Cx Nom (U)Reason for Exam Dysuria Urine ORGANISM: Yvette albicans (O:CANALB) Wassaic Count 15,000 PERFORMED BY: [address] [place] [address] PATHOLOGIST RESIDENTIAL MORTGAGE UNDERWRITER LETICIA VIRAMONTES M.D.[facility] Good Samaritan HospitalComment on above: Performed By: #### VAGINITIS+ #### [facility] , #### CUU #### [address] [address] USAVaginitis Plus (VG+)on 30-97-1525Swcgykdql Plus (VG+) NegativeNegativeUNYQ Pixelated Other Vaginitis Plus (VG+)Low - 0.Skataz Other Vaginitis Plus (VG+)PositiveCritically abnormal NegativeNortDepartment of Veterans Affairs Medical Center-Phil[facility] Anaplan Other Atopobium VaginaeLow - 0Normal.[facility] Medical CenterComment on above:Order Comment: Reason for Exam DysuriaPerformed By: #### VAGINITIS+ #### [facility] , #### CUU #### [facility] [address] [place] [address] XLQJOBI0Ltq - 0Normal.[facility] Comment on above:Order Comment: Reason for Exam DysuriaPerformed By: #### VAGINITIS+ #### [facility] , #### CUU #### [place] [address] USACandida Albicans, NAAPositiveCritically abnormalNegative [facility] Medical CenterComment on above:Order Comment: Reason for Exam DysuriaResult Comment: This test was developed and its performance characteristics determined by [facility]. It has not been cleared or approved by the Food and Drug Administration.Performed By: #### VAGINITIS+ #### [facility] , #### CUU #### [facility] [address] [place] [address] USACandida Glabrata, NAANegativeNormalNegativePremier Health Atrium Medical CenterComment on above:Order Comment: Reason for Exam Dysuria Result Comment: This test was developed and its performance characteristics determined by [facility]. It has not been cleared or approved by the Food and Drug Administration. PERFORMED BY: [place] [address] PATHOLOGIST RESIDENTIAL MORTGAGE UNDERWRITER LETICIA VIRAMONTES M.D.Performed By: #### VAGINITIS+ #### [facility] , #### CUU #### [place] [address] USAChlamydia Trachomotis, NAANegativeNormalNegativeFirelands Regional Medical CenterComment on above:Order Comment: Reason for Exam Dysuria Performed By: #### VAGINITIS+ #### [facility] , #### CUU #### [facility] [address] [place] [address] USAMegasphaeraLow - 0Normal.[facility] Comment on above:Order Comment: Reason for Exam DysuriaResult Comment: Calculate total score by adding the 3 individual bacterial vaginosis (BV) marker scores together. Total score is interpreted as follows: Total score 0-1: Indicates the absence of BV. Total score 2: Indeterminate for BV. Additional clinical data should be evaluated to establish a diagnosis. Total score 3-6: Indicates the presence of BV. This test was developed and its performance characteristics determined by [employer]. It has not been cleared or approved by the Food and Drug Administration.Performed By: #### VAGINITIS+ #### [facility] , #### CUU #### [place] [address] USANeisseria Gonorrhoeae, NAANegativeNormalNegativePremier Health Atrium Medical CenterComment on above:Order Comment: Reason for Exam Dysuria Result Comment: Performed at: =[facility] [id number] Manager Competitive Intelligence: Mary Stone MD, Phone: [phone] By: #### VAGINITIS+ #### [facility] , #### CUU #### [facility] [address] [place] [address] USATric Vag NAANegativeNormalNegativePremier Health Atrium Medical CenterComment on above:Order Comment: Reason for Exam DysuriaPerformed By: #### VAGINITIS+ #### [facility] , #### CUU #### [place] [address] USAANA by IFAon 04-18-3216Hzwivpxnofc Antibodies, IFANegative NormalUpper Valley Medical CenterComment on above:Result Comment: Negative <1:80 Borderline 1:80 Positive >1:80 ICAP nomenclature: AC-0 For more information about Hep-2 cell patterns use ANApatterns.org, the official website for the International Consensus on Antinuclear Antibody (MARGARET) Patterns (ICAP).Performed By: #### ANAIFA #### [facility] [address] [place] [address] Dr. Meghna LugoRHEUMATOID FACTORon 61-64-0390KB Latex Turbid.<10.0Normal<14.0The [facility] HospitalComment on above:Performed By: #### RF #### [facility] [address] [place] [address] Dr. Meghna OrtizC AUTO DIFFon 44-66-4246TJEH #0.0 103/ulNormal0.0-0.1The [facility] HospitalComment on above:Performed By: #### CBC #### [facility] [address] [place] [address] Dr. Meghna LugoBasophils/100 WBC (Bld)0.6 %Normal0.2-2.0[facility] Comment on above:Performed By: #### CBC #### [facility] [address] [place] [address] Dr. Meghna Hogan #0.1 103/ulNormal0.0-0.7The Magruder Hospitalment on above: Performed By: #### CBC #### [facility] [address] [place] [address] Dr. Meghna Noonanosinophils/100 WBC (Bld)0.7 %Critically low0.9-7.0[facility] Valley Medical CenterComment on above:Performed By: #### CBC #### [facility] [address] [place] [address] Dr. Meghna Noonanrythrocyte distribution width (RBC) [Ratio]13.3 %Zqyjpv59.0-15.0 The [facility] HospitalComment on above:Performed By: #### CBC #### [facility] [address] [place] [address] Dr. Meghna uLgoHematocrit (Bld) [Volume fraction]39.1 %Vsjokx94.0-48.0The [facility] HospitalComment on above:Performed By: #### CBC #### [facility] [address] [place] [address] Dr. Meghna LugoHemoglobin (Bld) [Mass/Vol]12.9 g/dQGohdhu73.0-16.0The [facility] HospitalComment on above:Performed By: #### CBC #### [facility] [address] [place] [address] Dr. Meghna Nix #0.02 10e3/ulNormal0.00-0.03The [facility] HospitalComment on above:Performed By: #### CBC #### [facility] [address] [place] [address] Dr. Meghna Nix %0.3 %Normal0.0-0.5The [facility] HospitalComment on above: Performed By: #### CBC #### [facility] [address] [place] [address] Dr. Meghna Burger #1.6 103/ulNormal1.2-3.8The [facility] HospitalComment on above:Performed By: #### CBC #### [facility] [address] [place] [address] Dr. Meghna Snellhocytes/100 WBC (Bld)21.7 %Ooatob00.5-60.0The [facility] HospitalComment on above:Performed By: #### CBC #### [facility] [address] [place] [address] Dr. Meghna PlazaUAL DIFF REQNONormalThe [facility] HospitalComment on above: Performed By: #### CBC #### [facility] [address] [place] [address] Dr. Meghna Mclean (RBC) [Entitic mass]27.4 fjPcxgzv97.7-34.0The [facility] HospitalComment on above:Performed By: #### CBC #### [facility] [address] [place] [address] Dr. Meghna Lam (RBC) [Mass/Vol]33.0 g/dUOlbhzu05.9-35.2The [facility] HospitalComment on above:Performed By: #### CBC #### [facility] [address] [place] [address] Dr. Meghna Stiles (RBC) [Entitic vol]83.2 pLEqvxov52.0-99.0The [facility] HospitalComment on above:Performed By: #### CBC #### [facility] [address] [place] [address] Dr. Meghna Pierre #0.4 103/ulNormal0.3-0.8The [facility] HospitalComment on above:Performed By: #### CBC #### [facility] [address] [place] [address] Dr. Meghna Wintersocytes/100 WBC (Bld)5.6 %Normal1.7-12.0The [facility] Comment on above:Performed By: #### CBC #### [facility] [address] [place] [address] Dr. Meghna Anaya #5.1 103/ulNormal1.4-6.5The [facility] HospitalComment on above:Performed By: #### CBC #### [facility] [address] [place] [address] Dr. Meghna Reynoldsutrophils/100 WBC (Bld)71.1 %Vbmlox57.0-75.0The [facility] HospitalComment on above:Performed By: #### CBC #### [facility] [address] [place] [address] Dr. Meghna Guardadolet mean volume (Bld) [Entitic vol]10.4 fLNormal9.5-13.5The [facility] HospitalComment on above:Performed By: #### CBC #### [facility] [address] [place] [address] Dr. Meghna LeeT266 103/ugLytctd831-038Htn [facility] HospitalComment on above: Performed By: #### CBC #### [facility] [address] [place] [address] Dr. Meghna McduffieC4.70 106/ulNormal4.20-5.40The [facility] on above:Performed By: #### CBC #### [facility] [address] [place] [address] Dr. Meghna LugoWBC7.2 103/ulNormal4.0-11.0The [facility] on above: Performed By: #### CBC #### [facility] [address] [place] [address] Dr. Meghna LugoCRPon 63-80-0990ZRT [Mass/Vol]mg/LNormal<=1.0The [facility] on above:Performed By: #### TSH, BMP, LIVER, CRP, LIPID #### [facility] [address] [place] [address] Dr. Meghna LugoGLYCOHEMOGLOBIN A1Con 74-44-6222EQU RECOMMENDATIONSEE BELOWFlower HospitalComselect specialty hospital on above:Result Comment: ADA RECOMMENDED LIMIT 4.0 - 6.0 ADA THERAPEUTIC TARGET < 7.0 ACTION SUGGESTED > 7.0Performed By: #### A1C #### [facility] [address] [place] [address] Dr. Meghna LugoGlucose [Mass/Vol]97 mg/dLNoChillicothe Hospital on above:Performed By: #### A1C #### [facility] [address] [place] [address] Dr. Meghna LugoHbA1c (Bld) [Mass fraction]5.0 %Normal4.5-6.2The [facility] on above:Performed By: #### A1C #### [facility] [address] [place] [address] Dr. Meghna LugoLIPID PROFILEon 80-79-4801BLCK-HDL RATIO NORMSEE BELOWSt. Vincent Hospital on above:Result Comment: 3.3 - 4.4 LOW RISK 4.4 - 7.1 AVERAGE RISK 7.1 - 11.0 MODERATE RISK >11.0 HIGH RISKPerformed By: #### TSH, BMP, LIVER, CRP, LIPID #### [facility] [address] [address] [address] Meghna LugoCholesterol [Mass/Vol]121 mg/dLNormal<=200[facility] Comment on above:Performed By: #### TSH, BMP, LIVER, CRP, LIPID #### [facility] [address] [address] [address] Meghna LugoCholesterol in HDL [Mass/Vol]68 mg/dLCritically youc18-40KhoUpper Valley Medical CenterComment on above:Performed By: #### TSH, BMP, LIVER, CRP, LIPID #### [facility] [address] [address] [address] Meghna Fletcheresterol in LDL [Mass/Vol]36.8 mg/dLNoMansfield HospitalComment on above:Performed By: #### TSH, BMP, LIVER, CRP, LIPID #### [facility] [address] [address] [address] Meghna Fletcherestermarco.total/Cholesterol in HDL [Mass ratio]1.8 {ratio} NormalUpper Valley Medical CenterComment on above:Performed By: #### TSH, BMP, LIVER, CRP, LIPID #### [facility] [address] [address] [address] Meghna White NORMAL> or = 60 mg/dl - LOW CARDIOVASCULAR RISK <40 mg/dl - HIGH CARDIOVASCULAR RISKDoctors HospitalComment on above:Performed By: #### TSH, BMP, LIVER, CRP, LIPID #### [facility] [address] [address] [address] Meghna Adam CALC NORMALSEE BELOWDoctors HospitalComment on above:Result Comment: <100 mg/dl OPTIMAL 100 - 129 mg/dl NEAR OR ABOVE OPTIMAL 130 - 159 mg/dl BORDERLINE HIGH 160 - 189 mg/dl HIGH >190 mg/dl VERY HIGH Performed By: #### TSH, BMP, LIVER, CRP, LIPID #### [facility] [address] [address] [address] Meghna LugoTriglyceride [Mass/Vol]81 mg/dLNormal<=150[facility] Comment on above:Performed By: #### TSH, BMP, LIVER, CRP, LIPID #### [facility] [address] [address] [address] Meghna JenkinsLDL CALC16.2 mg/dLNormalThe [facility] HospitalComment on above: Performed By: #### TSH, BMP, LIVER, CRP, LIPID #### [facility] [address] [address] [address] Meghna Martinez PROFILEon 11-67-0006Cvwhyjx [Mass/Vol]4.2 g/dLNormal3.4-5.0 The [facility] HospitalComment on above:Performed By: #### TSH, BMP, LIVER, CRP, LIPID #### [facility] [address] [address] [address] Meghna LugoAlbumin/Globulin [Mass ratio]1.2 {ratio}NormalThe [facility] HospitalComment on above:Performed By: #### TSH, BMP, LIVER, CRP, LIPID #### [facility] [address] [address] [address] Meghna Jerome [Catalytic activity/Vol]79 U/JGdlyvc03-952Ari [facility] HospitalComment on above:Performed By: #### TSH, BMP, LIVER, CRP, LIPID #### [facility] [address] [place] [address] Dr. Meghna Fisher [Catalytic activity/Vol]9 U/LCritically uss28-57Omn [facility] HospitalComment on above:Performed By: #### TSH, BMP, LIVER, CRP, LIPID #### [facility] [address] [place] [address] Dr. Meghna Cardona [Catalytic activity/Vol]7 U/LCritically fbg18-81Apm [facility] HospitalComment on above:Performed By: #### TSH, BMP, LIVER, CRP, LIPID #### [facility] [address] [place] [address] Dr. Meghna Heller, CONJUGATED0.2 mg/dLNormal0.0-0.2[facility] Comment on above:Performed By: #### TSH, BMP, LIVER, CRP, LIPID #### [facility] [address] [address] [address] Meghna LugoBilirubin [Mass/Vol]0.7 mg/dLNormal0.2-1.0The [facility] Comment on above:Performed By: #### TSH, BMP, LIVER, CRP, LIPID #### [facility] [address] [address] [address] Meghna LugoGlobulin (S) [Mass/Vol]3.5 g/dLNormalThe [facility] HospitalComment on above:Performed By: #### TSH, BMP, LIVER, CRP, LIPID #### [facility] [address] [address] [address] Meghna LugoProtein [Mass/Vol]7.7 g/dLNormal6.4-8.2[facility] Comment on above:Performed By: #### TSH, BMP, LIVER, CRP, LIPID #### [facility] [address] [place] [address] Dr. Meghna LugoPROF CHEM 8 (BAS METB)on 48-16-3939Ycgdu gap [Moles/Vol]10.6 mmol/LNormalUpper Valley Medical CenterComment on above:Performed By: #### TSH, BMP, LIVER, CRP, LIPID #### [facility] [address] [place] [address] Dr. Meghna LugoCalcium [Mass/Vol]9.2 mg/dLNormal8.5-10.1[facility] Comment on above:Performed By: #### TSH, BMP, LIVER, CRP, LIPID #### [facility] [address] [address] [address] Meghna LugoChloride [Moles/Vol]102 mmol/SLfjyge32-321Acu [facility] Comment on above:Performed By: #### TSH, BMP, LIVER, CRP, LIPID #### [facility] [address] [place] [address] Dr. Meghna LugoCO2 [Moles/Vol]28.9 mmol/UTvybes70.0-32.0The [facility] Comment on above:Performed By: #### TSH, BMP, LIVER, CRP, LIPID #### [facility] [address] [address] [address] Meghna LugoCreatinine [Mass/Vol]0.88 mg/dLNormal0.55-1.02The [facility] HospitalComment on above:Performed By: #### TSH, BMP, LIVER, CRP, LIPID #### [facility] [address] [address] [address] Meghna NoonanGFR-AF KUWAITI>60Normal>=60The [facility] HospitalComment on above:Performed By: #### TSH, BMP, LIVER, CRP, LIPID #### [facility] [address] [place] [address] Dr. Meghna NoonanGFR-NON AF KUWAITI>60Normal>=60The [facility] HospitalComment on above:Performed By: #### TSH, BMP, LIVER, CRP, LIPID #### [facility] [address] [place] [address] Dr. Meghna LugoGlucose [Mass/Vol]101 mg/wMJgqckt61-441Tpk [facility] Comment on above:Performed By: #### TSH, BMP, LIVER, CRP, LIPID #### [facility] [address] [place] [address] Dr. Meghna LugoPotassium [Moles/Vol]3.5 mmol/LNormal3.5-5.1[facility] Comment on above:Performed By: #### TSH, BMP, LIVER, CRP, LIPID #### [facility] [address] [address] [address] Meghna LugoSodium [Moles/Vol]138 mmol/DCuvrcf657-950EmzUpper Valley Medical Center Comment on above:Performed By: #### TSH, BMP, LIVER, CRP, LIPID #### [facility] [address] [place] [address] Dr. Meghna LugoUrea nitrogen [Mass/Vol]13.0 mg/dLNormal7.0-18.0The [facility] HospitalComment on above:Performed By: #### TSH, BMP, LIVER, CRP, LIPID #### [facility] [address] [place], [place] [address] Dr. Meghna Adams nitrogen/Creatinine [Mass ratio]14.8 mg/mgNormalThe [facility] HospitalComment on above:Performed By: #### TSH, BMP, LIVER, CRP, LIPID #### [facility] [address] [address] [address] Meghna Daniels RATE WESTERGRENon 98-06-8813YFN RATE7 mm/hrNormal<=20The [facility] HospitalComment on above:Performed By: #### SEDR #### [facility] [address] [address] [address] Meghna Gross 08-76-2268FRK2.529 uIU/mLNormal0.358-3.740The [facility] HospitalComment on above:Performed By: #### TSH, BMP, LIVER, CRP, LIPID #### [facility] [address] [address] [address] Meghna LugoCOVID/FLU RT-PCRon 42-40-8315TGGZ-CoV-2 (COVID-19) RNA MADISYN+probe Ql (Unsp spec)PositiveRockton Pixelated Other COVID/FLU RT-PCRNegativeRockton Pixelated Other Quick Strepon 04-17-2022. pyogenes Org specific cx Ql (Throat)NegativeRockton Pixelated Other Urinalysis - AUTOMATEDon 62-73-4672Cokjfwvyew (U)clear [place] Pixelated Other Bilirubin Ql (U)NegativeUNYQ Pixelated Other Color (U)yellowRockton Pixelated Other Glucose Ql (U)NegativeUNYQ Pixelated Other Hemoglobin Ql (U)[facility]okeUNYQ Pixelated Other Ketones Ql (U)[facility]okeUNYQ Pixelated Other Leukocyte esterase Test strip Ql (U)NegativeRockton Pixelated Other Nitrite Ql (U)NegativeRockton Pixelated Other pH (U)8.0 [pH][place] Pixel[employer] Other Protein Ql (U)NegativeWillapa Harbor Hospital Anaplan Other Specific gravity (U) [Rel density]1.025NoHelen M. Simpson Rehabilitation [facility] Anaplan Other Urobilinogen (U) [Mass/Vol]0.20 mg/dLRockton Pixelated Other Urinalysis - AUTOMATEDWillapa Harbor Hospital Anaplan Other Vital Signs Date TimeVital SignValuePerforming MrcttvphtXcahlibw30-18-9769 14:53-0400Body .18 cmJoaquín Branch MD Work Phone: [facility]10-07-2025 14:53-0400 Body mass index (BMI) [Ratio]27.8 kg/m2Joaquín Branch MD Work Phone: [facility]10-07-2025 14:53-0400 Body ovfyovtrork29.8 [degF]Joaquín Branch MD Work Phone: [facility]10-07-2025 14:53-0400 Body fhocht31.73 kgJoaquín Branch MD Work Phone: [facility]10-07-2025 14:53-0400 Diastolic blood ykhnwoqj23 mm[Hg]Jaoquín Branch MD Work Phone: [facility]10-07-2025 14:53-0400 Heart rate97 /minJoaquín Branch MD Work Phone: [facility]10-07-2025 14:53-0400 Respiratory rate20 /minJoaquín Branch MD Work Phone: [phone] [place], [place] [address]10-07-2025 14:53-0400 SaO2% (BldA) [Mass fraction]99 %Joaquín Branch MD Work Phone: [phone]10-07-2025 14:53-0400 Systolic blood ewcczxde227 mm[Hg]Joaquín Branch MD Work Phone: [phone]02-18-2025 15:08-0500 Body zxqafz384.2 cmJoaquín Branch MD Work Phone: [facility] HospitalZzcxdopizb07-43-6863 15:08-0500Body mass index (BMI) [Ratio]28.35 kg/m2Joaquín Branch MD Work Phone: [facility] HospitalUffqxcnijb12-12-9986 15:08-0500Body temperature 97.81 [degF]Joaquín Branch MD Work Phone: [facility] HospitalSqsrevtpfa76-29-7916 15:08-0500Body glhnfi49.1 kg Joaquín Branch MD Work Phone: [facility] HospitalPizmbtcrxf53-71-2799 15:08-0500Diastolic blood fvepugnm62 mm[Hg]Joaquín Branch MD Work Phone: [facility] HospitalUjzddcpxcg10-05-3873 15:08-0500Heart rate91 /min Joaquín Branch MD Work Phone: [facility] HospitalLbvriuezjw48-63-6840 15:08-0500Respiratory rate22 /minJoaquín Branch MD Work Phone: [facility] HospitalUkkvajfpil44-47-6575 15:08-0253UxO8% (BldA) [Mass fraction]99 %Joaquín Branch MD Work Phone: [facility] HospitalImwwmvaatv86-27-4197 15:08-0500Systolic blood dgtckexz551 mm[Hg]Joaquín Branch MD Work Phone: [facility] HospitalQoebkeyakb30-36-1211 10:23-0500Body iayrww460.2 cmJoaquín Branch MD Work Phone: [facility] HospitalHkdcduvako30-19-8780 10:23-0500Body mass index (BMI) [Ratio]28.04 kg/m2Joaquín Branch MD Work Phone: [facility] HospitalBfrddcsvog49-50-1515 10:23-0500Body temperature 97.3 [degF]Joaquín Branch MD Work Phone: [facility] HospitalLzcjnbywql77-51-8825 10:23-0500Body jhlbuy06.19 kgJoaquín Branch MD Work Phone: [facility] HospitalAswnvesexn39-49-9724 10:23-0500Diastolic blood mm[Hg]Joaquín Branch MD Work Phone: [facility] HospitalFvhhfpqcbj52-25-1202 10:23-0500Heart tgkl574 /min Joaquín Branch MD Work Phone: [facility] HospitalGieleysmsp74-52-4895 10:23-0500Respiratory rate20 /minJoaquín Branch MD Work Phone: [facility] HospitalOmhacvhxix26-44-4503 10:23-6461AzK4% (BldA) [Mass fraction]98 %Joaquín Branch MD Work Phone: [facility] HospitalIxtwsmquns48-05-8462 10:23-0500Systolic blood mm[Hg]Joaquín Branch MD Work Phone: [facility] HospitalAdkyifsixh45-31-2464 14:01-0500Body nhyvqb447.2 cmJoaquín Branch MD Work Phone: [facility] HospitalXgunmjtpuq50-10-2691 14:01-0500Body mass index (BMI) [Ratio]28.47 kg/m2Joaquín Branch MD Work Phone: [facility] HospitalLhhijrqvgj98-81-7572 14:01-0500Body temperature 97.7 [degF]Joaquín Branch MD Work Phone: [facility] HospitalXazbwvuqkf87-39-8010 14:01-0500Body ivrhcg51.46 kgJoaquín Branch MD Work Phone: [facility] HospitalKjffbwehrg42-04-0087 14:01-0500Diastolic blood wggdwetq38 mm[Hg]Joaquín Branch MD Work Phone: [facility] HospitalUyvqjfqint00-66-0264 14:01-0500Heart hfjx433 /min Joaquín Branch MD Work Phone: noS[facility] HospitalUvszsuagkx50-94-5895 14:01-0500Respiratory rate18 /minJoaquín Branch MD Work Phone: [facility] HospitalGhcxbidgcx72-93-2804 14:01-6012RvV0% (BldA) [Mass fraction]97 %Joaquín Branch MD Work Phone: noS[facility] HospitalAjsjtmidwt54-77-6126 14:01-0500Systolic blood sfhajgki953 mm[Hg]Joaquín Branch MD Work Phone: [facility] HospitalTucsrzhcyb23-50-3764 17:45-0500Body .18 cmAmanda Shira Other [employer] Other 12-27-2023 17:45-0500Body mass index (BMI) [Ratio] 23.96 kg/m4Jloxms Shira Other [employer] Other 12-27-2023 17:45-0500Body .3 [degF]Lorraine Shira Other [employer] Other 12-27-2023 17:45-0500Body baceyi13.4 kgAmanda Shira Other [employer] Other 12-27-2023 17:45-0500Respiratory rate18 /minAmanda Shira Other [employer] Other 12-27-2023 17:45-0602PnO4% (BldA) [Mass fraction]98 % Lorraine Shira Other [employer] Other 11-30-2023 11:20-0500Body eegfwr977.18 cmAmanda Shira Other [employer] Other 11-30-2023 11:20-0500Body mass index (BMI) [Ratio] 19.73 kg/h9Fnrywg Shira Other [employer] Other 11-30-2023 11:20-0500Body keijdzclyyn54.5 [degF]Lorraine Shira Other [employer] Other 11-30-2023 11:20-0500Body dspoms85.15 kgAmanda Shira Other [employer] Other 11-30-2023 11:20-0500Respiratory rate21 /minAmanda Shira Other [employer] Other 11-30-2023 11:20-6836YfW1% (BldA) [Mass fraction]97 % Lorraine Shira Other [employer] Other 01-18-2023 11:00-0500Body ucrwan509.18 cmPamela Mari Other [employer] Other 01-18-2023 11:00-0500Body mass index (BMI) [Ratio] 23.49 kg/g1Qpwvre Mari Other [employer] Other 01-18-2023 11:00-0500Body hrncubymzid91.6 [degF]Triny Guerra Other [employer] Other 01-18-2023 11:00-0500Body dmjddi93.04 kgTriny Guerra Other [employer] Other 01-18-2023 11:00-0500Diastolic blood kvzwomik24 mm[Hg] Triny Gaymond Other [employer] Other 01-18-2023 11:00-0500Respiratory rate18 /minTriny Gaymond Other [employer] Other 01-18-2023 11:00-3985ErV5% (BldA) [Mass fraction]100 % Triny Mari Other [employer] Other 01-18-2023 11:00-0500Systolic blood znezzmxf55 mm[Hg] Triny Mari Other [employer] Other 10-11-2022 12:05-0400Body ozovco665.18 cmPamelthelma Guerra Other [employer] Other 10-11-2022 12:05-0400Body mass index (BMI) [Ratio] 24.27 kg/d6GwuwcrTriny Gaymond Other [employer] Other 10-11-2022 12:05-0400Body malewtncymq246 [degF]Triny Mari Other [employer] Other 10-11-2022 12:05-0400Body nfuebm83.31 kgPaani Gaymond Other [employer] Other 10-11-2022 12:05-0400Respiratory rate18 /Carlos Enrique Guerra Other [employer] Other 10-11-2022 12:05-6119CpU8% (BldA) [Mass fraction]99 % Triny Guerra Other [employer] Other Encounters Encounter DateEncounter TypeCare ProviderFacilityStart: 04-13-2025 End: 84-17-1889ewkmxzclknFbjv Naderer MD Work Phone: [facility] Work Phone: Start: 04-13-2025 End: 89-56-9796Iqgfdux encounter procedureJoauqín Branch MD-[facility] Work Phone: Start: 08-25-2024 End: 92-93-0121tsxvoogsnoOKKS NADERERNot AvailableStart: 08-25-2024 End: 44-48-7102Kxbfut outpatient visit 15 minutesJoaquín Branch MD Work Phone: noms CWM FMComment on above:Allergic contact dermatitis due to cosmetics (Primary Dx)Start: 08-25-2024 End: 07-99-1945Ndsvcf Jamey Branch MD Work Phone: noms CWM FMStart: 08-25-2024 End: 04-72-6979Kvonna Jamey Branch MD Work Phone: noms CWM FMStart: 07-30-2024 End: 08-02-7581Xyxxzl Jamey Branch MD Work Phone: noms CWM FMStart: 07-30-2024 End: 84-44-6169Icfpts Jamey Branch MD Work Phone: noms CWM FMStart: 07-30-2024 End: 12-23-4791Bfdxae outpatient visit 15 minutesJoaquín Branch MD Work Phone: NOSF CWM FMComment on above:Acute UTI (Primary Dx) Start: 07-30-2024 End: 97-81-1911oaoxfoetytBVAM NADERERNot AvailableStart: 07-27-2024 End: 21-65-2793Jnykeh flowsRadha Branch MD Work Phone: NOFC CWM FMStart: 07-27-2024 End: 81-91-6480Tfyjwc flowsRadha Branch MD Work Phone: NOHX CWM FMStart: 07-27-2024 End: 30-48-7009Sukbxy outpatient visit 15 minutesJoaquín Branch MD Work Phone: NOTR CWM FMComment on above:Acute bronchitis due to other specified organisms (Primary Dx); Mild intermittent asthma, unspecified whether complicated ([facility])Start: 07-27-2024 End: 66-98-9257ptewvryhzcZARP NADERERNot AvailableStart: 07-22-2024 End: 23-06-8011hcvwztfqurCHHFG FAZIONot AvailableStart: 07-22-2024 End: 80-02-7190Znvmkk flowsheetCorey Dolores DO Work Phone: NOQG BCP OBStart: 07-22-2024 End: 30-81-3854Xjolwp flowsheetCorey Dolores DO Work Phone: NOWP BCP OBStart: 07-22-2024 End: 14-69-9896Qbgushrdw Result EncounterGeneric External Data ProviderNOMS External Department UnsolicitedStart: 07-14-2024 End: 76-61-8291Yhabfwlhl department patient visitMARParkview Healthtart: 10-23-2023 End: 68-51-5955Qybdkdubw Result EncounterJoaquín Branch MD Work Phone: noms External Department UnsolicitedStart: 10-23-2023 End: 08-74-9746Ixupwirko Result EncounterJoaquín Branch MD Work Phone: NOCT External Department UnsolicitedStart: 10-22-2023 End: 33-87-3217nrmfzhmfheIWBC NADERERNot AvailableStart: 10-03-2023 End: 55-70-9327Ycxvvkrsv department patient visitENCOMPASS [facility] Hospitaltart: 07-03-2023 End: 17-94-3942kgijmqezcdSacalz Shira Other [employer] Other Start: 67-41-5915Jysusu outpatient visit 15 minutes Lorraine GrobFPG Urgent Care ClydeStart: 06-06-2023 End: 54-29-0703uolrpuvwbiTtamnu Shira Other [employer] Other Start: 59-20-5366Dbmjsk outpatient visit 15 minutes Lorraine GrobFPG [facility] Care ClydeStart: 07-27-2022 End: 07-98-3867drhbsscljqSjiezs Mari Other [employer] Other Start: 88-57-8629Qdjgrmwbp encounterPamela DymondFPG Urgent Care ClydeStart: 30-10-9799Vasxkx outpatient visit 15 minutesPamela DymondFPG Urgent Care ClydeStart: 07-25-2022 End: 67-28-6657wyfgluknvhQfiwzy DymondFacility:[facility] Start: 07-25-2022 End: 40-16-3961cllcztnrxbDO Marc Naderer Work Phone: [facility] Work Phone: Start: 07-25-2022 End: 66-57-4376Sokdxgnb ReferredMD Joaquín Branch Work Phone: [facility] [place] Work Phone: Start: 21-56-5838Rqzaixzih for general adult medical examination without abnormal findingsDR JOAQUÍN Gilbert [facility] Start: 06-12-2022 End: 43-65-9282plwhsxrrnpMO JOAQUÍN Gilbert [facility]ENTERacility:L7Jgdzx: 06-12-2022 End: 44-40-1076Jmggzgfbk for general adult medical examination without abnormal findingsDR JOAQUÍN Gilbert [facility]ITALARGENISacility:F8Tybux: 04-17-2022 End: 12-46-7217lnozkvgjbuCynmtu Dymond Other [employer] Other Start: 85-62-0828Htjgvi outpatient visit 15 minutes Triny GuerraFPG Urgent Care Henok Procedures DateProcedureProcedure DetailPerforming ClinicianStart: 74-18-7555Yufta dip stick/tablet rgnt non-auto w/o micrscpMarc Jose Carlos TREJO Work Phone: Start: 53-94-3006XUM,APTIMA HPV,AGE GDLNAmy Margo TAYLOR Work Phone: Start: 63-73-3392QS FOOT RT MIN 3VMarc Jose Carlos TREJO Work Phone: Plan of Treatment DateCare ActivityDetailAuthorStart: 07-27-2025 End: 86-20-5204Hucptyj encounter procedureNOMS BCP OBStart: 07-30-2024 End: 61-34-4654YWDOBDL TRACT INFECTION (HTRX)URINARY TRACT INFECTION (HTRX) Lab Routine Acute UTI Expected: 07/30/2024 (Approximate), Expires: 07/30/2025[facility] Work Phone: Comment on above:Expected: 07/30/2024 (Approximate), Expires: 07/30/2025Start: 07-30-2024 End: 71-36-3042Whizxnc encounter uafxdwmqk42/23/2025 10:15 AM EST Office Visit [facility]Wil[facility] [address] [place] [phone] Joaquín Branch MD [address] [place] [address] ArrivedNOMS CWM FMComment on above:ArrivedStart: 07-27-2024 End: 46-58-4571Ksgagaa encounter procedureNOMS CWM FMComment on above:Arrived Start: 06-57-3598Ukmfffxmz vaccinationInfluenza Vaccine (#1)[facility] Start: 27-66-1070Quiutzbz identified in Urine by CulturePremier Health Atrium Medical CenterAtopobium vaginae DNA [Presence] in Vaginal fluid by MADISYN with probe detectionPremier Health Atrium Medical CenterBacterial vaginosis associated bacterium 2 DNA [Presence] in Vaginal fluid by MADISYN with probe detectionPremier Health Atrium Medical CenterComprehensive metabolic 2000 panel - Serum or Plasma [facility] Medical CenterMegasphaera sp type 1 DNA [Presence] in Vaginal fluid by MADISYN with probe detectionHialeah Hospital Payers DatePayer CategoryPayerPolicy [id number] [facility] Member Subscriber Plan / Payer (Effective 2022-Present) Name: Amos Rios MemberID: [id number] Relation to Subscriber: Self Name: Amos Rios ID: Not on file Type: Not on file Address: [address] [id number] Indian Medical [id number] [id number] [id number]-rei [id number] 18j5gj5z-02t8-8u9n-32u0-vk9sj[id number] 2.16.840.1.087926.3.579.[id number] 2.16.840.1.371037.3.57[id number] 2.16.840.1.642736.3.57[id number] 2.16.840.1.787355.3.57[id number] 2.16.840.1.682298.3.57[id number] 2.16.840.1.354931.3.57[id number] 2.840.1.065207.3.57[id number] 2..840.1.440020.3.579.2.[id number] [facility] [id number] 2.[id number] 2.840.1.597716.3.579.2.531 Social History DateTypeDetailFacilityUnknown if ever smokedNocedar county memorial hospital [employer] Other Start: 10-22-2023 End: 24-83-3474Gij Assigned At [facility] [employer] Other Start: 89-25-3955Xsg Assigned At [facility] Centertart: 95-28-6209Uwtjdmc smoking status NHISNever smoked tobaccoNOMS HealthcareStart: 32-97-3253Gkcxiiu use and exposureSmokeless tobacco non-userNOMS HealthcareStart: 10-22-2023 End: 10-55-4208Qntlwvc of Social functionFILLMORE COMMUNITY MEDICAL CENTER HealthcareStart: 79-40-2580Feg assigned at birthNot on [facility] HealthcareStart: 70-32-7829Urzuxio smoking status NHISEx-smoker (finding)[facility] CenterexFemale (finding)[facility] Centertart: 35-44-9267BseEbmomfGTZB Healthcare Clinical Notes 04-17-2022 to 08-25-2024 Note Date & LwluBbqqJmhnepja53-46-1079 History of Present illness Narrative* Joaquín Branch MD - 08/25/2024 3:25 PM ESTAssociated Problem(s): Allergic contact dermatitis due to cosmetics Likely reacting to new shampoo. Treat with prednisone and use hydroxyzine PRN. Use lotion PRN. * Joaquín Branch MD - 08/25/2024 3:00 PM EST Images from the original note were not included. Subjective Patient ID: Amos Rios is a 24 y.o. female who presents [...] (Deltasone) 10 MG tablet documented in this encounterPutnam County Memorial HospitalGgzrtdoqai41-42-4414 History of Present illness Narrative* Joaquín Branch MD - 07/30/2024 10:43 AM ESTAssociated Problem(s): Acute UTI UA suggestive UTI and treat. Currently on levaquin and start macrobid for infection. Use pyridium for symptoms. Send urine for culture. Increase water intake and cranberry juice. Use motrin or tylenol for discomfort. * Joaquín Branch MD - 07/30/2024 10:15 AM EST Images from the original note were not included. Subjective Patient ID: Amos Rios is a 23 y.o. female who presents for UTI. Concerned of possible UTI. C/o pain and burning with urination over the past 2 days. Increased frequency and urgency. Hesitancy and feels like not emptying all the way. Severe burning with urination.Pain in right flank and pain in lower abdomen. C/o hot and sweaty but no nausea. Afebrile. Trying to increase water intake. Not tried OTC for symptoms. Currently on levaquin since 07/27 for bronchitiswhich has improved. UTI Review of Systems Respiratory: [...] POCT Urinalysis dipstick (Completed) documented in this encounterPutnam County Memorial HospitalDvrhzupxli48-42-2912 History of Present illness Narrative* Joaquín Branch MD - 07/27/2024 2:23 PM ESTAssociated Problem(s): Acute bronchitis due to other specified [...] if no better or worse call office. * Joaquín Branch MD - 07/27/2024 2:00 PM EST Images from the original note were not included. Subjective Patient ID: Amos Rios is a 23 y.o. female who presents [...] OTC medication and mild relief. To ER /7 after 1 week of symptoms and given [...] Diagnoses Mild intermittent asthma, unspecified whether complicated ([facility]) Relevant Medications albuterol HFA 90 mcg/act inhaler documented in this encounterPutnam County Memorial HospitalDpyscinxch98-18-4996 Evaluation note* Encounter Date Diagnosis Assessment Notes Treatment Notes Treatment Clinical Notes Jun, Acute bilateral otitis media (IC D-10 - H66.93) Patient is a 22 yo female who presents with complaints of increased sinus pressure, nasal congestion, bilateral ear pain, fevers, and cough for the past few days. She was diagnosed with bronchitis a month ago and treated with a z- pack, Medrol dose pack. DDX includes sinusitis, viral URI. Otitis media, bacterial sinusitis. Based on patient exam and symptoms, she is being diagnosed with acute bilateral otitis media and sinusitis. She is being prescribed amoxicillin 5000 mg twice daily for 10 daysand is encouraged to follow up with her PCP if symptoms persist or worsen. Jun,Sinusitis, unspecified chronicity, unspecified location (ICD-10 - J32.9) [employer] Other 11-30-2023 Evaluation note* Encounter Date Diagnosis Assessment Notes Treatment Notes Treatment Clinical Notes May, Acute bronchitis, unspecified or ganism (ICD-10 - J20.9) You were seen here [...] you need to go to the ER. [employer] Other 01-18-2023 Evaluation note* Encounter Date Diagnosis Assessment Notes Treatment Notes Treatment Clinical Notes Jul, Dysuria (ICD-10 - R30.0) Jul,Vaginal discharge (ICD-10 - N89.8)Vaginal discharge home care material was printed Drink plenty fluids, get plenty of rest. Take the Diflucan as prescribed until gone. We will notifyyou of your culture results. No intercourse for 2 weeks. Always use condom [employer] Other 10-11-2022 Evaluation note* Encounter Date Diagnosis Assessment Notes Treatment Notes Treatment Clinical Notes Apr, Contact with and (oliver spected) exposure to other viral communicable diseases (ICD-10 - Z20.828) Apr,2COVID-19 (ICD-10 - U07.1)Discharge Instructions for COVID-19 (Suspected or Confirmed ) material was printed Drink plenty fluids, get plenty of rest. Take Tylenol, acetaminophen, up to 4 times a day for achespains and fevers. Take the prednisone as prescribed until gone. Use your albuterol inhaler as prescribed as needed for cough or shortness of breath. You must quarantine for 5 days starting today due to your COVID diagnosis. Follow-up with your family physician if no improvement in 2 to 3 days. Apr,2Dysuria (ICD-10 - R30.0) [employer] Other Chief complaint+Reason for visit Narrative* Chief Complaint Admit Date Check Up/Request Referral April 13 2:44pm Reason for Visit Admit Date Annual physical exam April 13, 2025 2 :44pm Autonomic dysfunction April 13, 2025 2:44pm Celiac disease April 13, 2025 2: 44pm [facility] Work Phone: Evaluation noteNo assessment information available [facility] Work Phone: Evaluation noteNo InformationNortDepartment of Veterans Affairs Medical [facility] [employer] Other Evaluation note* Diagnosis Viral gastroenteritis- Primary Intestinal infection due to other organism, NEC Gastroesophageal reflux disease without esophagitis Esophageal reflux Disorder of both eustachian tubes Right ear impacted cerumen Impacted cerumen Right foot pain Pain in soft tissues of limb Acute bronchitis due to other specified organisms- Primary Mild intermittent asthma, unspecified whether complicated ([facility]) documented in this encounter [facility] HealthcareEvaluation note* Diagnosis Viral gastroenteritis- Primary Intestinal infection due to other organism, NEC Gastroesophageal reflux disease without esophagitis Esophageal reflux Disorder of both eustachian tubes Right ear impacted cerumen Impacted cerumen Right foot pain Pain in soft tissues of limb Acute UTI- Primary Urinary tract infection, site not specified documented in this encounter [facility] HealthcareEvaluation note* Diagnosis Viral gastroenteritis- Primary Intestinal infection due to other organism, NEC Gastroesophageal reflux disease without esophagitis Esophageal reflux Disorder of both eustachian tubes Right ear impacted cerumen Impacted cerumen Right foot pain Pain in soft tissues of limb Allergic contact dermatitis due to cosmetics- Primary documented in this encounter [facility] HealthcareEvaluation note* Diagnosis Onset Date Resolution Status Admit Date Annual physical exam acuteOctober 2024 2:44pmAutonomic dysfunctionacuteOctober 2024 2:44pm Celiac diseaseacuteOctober 2024 2:44pm [facility] Work Phone: History general Narrative - Reported* Type Description Date Medical History celiac sprue Medical HistoryGERDSurgical HistoryEar tubesSurgical HistoryTonsillectomy Hospitalization Historysevere abdominal and chest pain [facility] [employer] Other History general Narrative - Reported* Type Description Date Medical History celiac sprue Medical HistoryGERDSurgical HistoryEar tubesSurgical HistoryTonsillectomy Surgical Historywisdom teethSurgical HistoryadnoidectomySurgical HistoryEGD Hospitalization Historysevere abdominal and chest pain [facility] [employer] Other Reason for referral (narrative)No reason for referral information availableDoctors Hospital Work Phone: Summary Purpose Family History No Family History Records FoundNo Family History Records FoundNo Family History Records FoundNo Family History Records Found Advance Directives Advance Directive Response Recorded Date/ Time Advance Directives No December 05 3:11pm Advance Directive Response Recorded Date/ Time Advance Directives No December 05 4:11pm Chief Complaint and Reason for Visit Chief Complaint Dysuria Additional Source Comments REASON FOR VISIT (unrecogniz ed section and content) ReasonCommentsCoughSore ThroatHeadacheReasonCommentsUTIReasonCommentsRashOn chest and neck INFORMATION SOURCE (unrecogn ized section and content) DATE CREATED AUTHOR 06/16/2022 [facility] DATE CREATED AUTHOR AUTHOR'S ORGANIZ ATION 07/31/2022 [facility] DATE CREATED AUTHOR AUTHOR'S ORGANIZ ATION 07/20/2024 [facility] DATE CREATED AUTHOR AUTHOR'S ORGANIZ ATION 08/27/2024 [facility] EPIC Care Teams (unrecognized sec tion and content) Team Status: Active Member Role Status Dates Joaquín Branch MD Primary Care Provider Active Team Status: Inactive Member Role Status Dates Joaquín Branch MD Primary Care Provider Active S tart: April 13, 2025 End: April 13, 2025[facility] Cliniccelia Branch MDAttending ProviderActiveStart: April 13, 2025 End: April 13, 2025 Team Status: Inactive Member Role Status Dates Joaquín Branch MD Primary Care Provider Active Triny Guerra NP-CAttending ProviderActiveTeam MemberRelationshipSpecialty Start DateEnd Date Joaquín Branch MD [address] [place] [address] [facility] - [facility] Medicine10/22/23Team MemberRelationshipSpecialtyStart DateEnd Date Joaquín Branch MD [address] [place] [phone] [facility] - [facility] Medicine10/22/23Team MemberRelationshipSpecialtyStart DateEnd Date Joaquín Branch MD [address] [place] [address] PCP - GeneralFamily Medicine10/22/23Team MemberRelationshipSpecialtyStart DateEnd Date Joaquín Branch MD [address] [place] [address] PCP - Generalmily Medicine10/22/23Team MemberRelationshipSpecialtyStart DateEnd Date Joaquín Branch MD [address] [place] [address] [facility] - [facility]10/22/23Team MemberRelationshipSpecialtyStart DateEnd Date Joaquín Branch MD [address] [place] [address] PCP - Generalmily Medicine10/22/23Team MemberRelationshipSpecialtyStart DateEnd Date Joaquín Branch MD [address] [place] [address] PCP - Generalmily Medicine10/22/23Team MemberRelationshipSpecialtyStart DateEnd Date Joaquín Branch MD [address] [place] [address] PCP - Generalmily Medicine10/22/23Team MemberRelationshipSpecialtyStart DateEnd Date Joaquín Branch MD PCP - GeneralFamily Medicine10/22/23 Goals (unrecognized section and content) Goals may [...] BE BASED ON THE PRIMARY CLINICAL RECORDS. [facility] [employer] [facility]. provides no warranty or guarantee of the accuracy or completeness of information in this document.
[2025-07-06 17:25] LABS: Alanine Aminotransferase 12 U/L (14-59); Albumin Globulin Ratio 1.0; Albumin Level 3.8 g/dL (3.4-5.0); Alkaline Phosphatase 83 U/L (46-116); Anion Gap 8.6; Aspartate Amino Transferase 7 U/L (15-37); Blood Urea Nitrogen 10.0 mg/dL (7.0-18.0); Calcium 9.0 mg/dL (8.5-10.1); Carbon Dioxide 29.3 mmol/L (21.0-32.0); Chloride 104 mmol/L (98-107); Estimated GFR (African America >60 (>=60 mL/min/1.73m^2); Estimated GFR (Non-African Ame >60 (>=60 mL/min/1.73m^2); Globulin 3.8 g/dL; Glucose 100 mg/dL (74-106); Potassium 3.9 mmol/L (3.5-5.1); Sodium 138 mmol/L (136-145); Total Protein 7.6 g/dL (6.4-8.2)
[2025-07-06 17:45] LABS: Iron 15.0 ug/dL (50.0-170.0); Percent Iron Saturation 3.7 %; Total Iron Binding Capacity 410.0 ug/dL (250.0-450.0)
[2025-07-06 17:58] LABS: Ferritin 4.0 ng/mL (8.0-252.0)
[2025-07-08 04:07] LABS: Vitamin B12 218 pg/mL (232-1245)
[2025-07-10 11:08] LABS: Deamidated Gliadin Abs, IgA 2 units (0-19); Deamidated Gliadin Abs, IgG 24 units (0-19); Immunoglobulin A, Qn, Serum <5 mg/dL (87-352)
== END 2025-07-06 16:40 | disposition home or self-care (01) ==
PROVIDERS: PCP Family Medicine; Visit Provider Internal Medicine
DX: K90.0 Celiac disease (principal)
CPT/HCPCS: 36415; 80053; 82607; 82728; 82784; 83540; 83550; 85025; 86231; 86258; 86364